=== PATIENT | female | born 1950 | race Caucasian/White ===

== ENCOUNTER 2018-05-07 22:51 | Emergency (ER) ==
[2018-05-07 23:07] VITALS: BP 121/63
--- NOTE | 2018-05-07 23:28 | ER Document Report ---
ED Medical Screen (RME) - General Chief Complaint: Diarrhea Stated Complaint: DIARRHEA Time Seen by Provider: 05/07/18 23:26 Primary Care Provider: LACI BARRERA MD [Primary Care Provider] - Follow up as needed Mode of Arrival: Ambulatory Information source: Patient Notes: Patient is a 67-year-old female who presents to the emergency department with diarrhea times 1 week. Patient reports taking Imodium over the last 3 days without relief. Patient denies any blood in the diarrhea but states there is blood when she wipes. Reports generalized abdominal pain that comes in waves. Denies any vomiting or fever. Patient does report dizziness. Patient denies any history of similar symptoms. TRAVEL OUTSIDE OF THE [place] IN LAST 30 DAYS: No Past Medical History - Social History Chew tobacco use (# tins/day): No Frequency of alcohol use: None Drug Abuse: None Renal/ Medical History: Denies: Hx Peritoneal Dialysis Physical Exam - Vital signs Vitals: Temp Pulse Resp BP Pulse Ox 97.3 F 104 H 17 121/63 98 05/07/18 23:04 05/07/18 23:04 05/07/18 23:04 05/07/18 23:04 05/07/18 23:04 Course - Vital Signs Vital signs: Temp Pulse Resp BP Pulse Ox 97.3 F 104 H 17 121/63 98 05/07/18 23:04 05/07/18 23:04 05/07/18 23:04 05/07/18 23:04 05/07/18 23:04 Doctor's Discharge - Discharge Referrals: LACI BARRERA MD [Primary Care Provider] - Follow up as needed
== END 2018-05-08 00:20 | disposition left against medical advice (07) ==
LOC: ER 22:51
DX: R19.7 Diarrhea, unspecified (principal); R10.84 Generalized abdominal pain; R42 Dizziness and giddiness; Z53.20 Procedure and treatment not carried out because of patient's decision for unspecified reasons
CPT/HCPCS: 99281

== ENCOUNTER 2018-05-10 20:44 | Emergency (ER) | payer MEDICARE, MEDICAID ==
[2018-05-10 21:25] LABS: ABSOLUTE EOSINOPHILS # (AUTO) 0.1 10^3/uL (0.0-0.6); ABSOLUTE LYMPHOCYTES (AUTO) 1.1 10^3/uL (0.5-4.7); ABSOLUTE MONOCYTES (AUTO) 1.1 10^3/uL (0.1-1.4); ABSOLUTE NEUT (AUTO) 6.9 10^3/uL (1.7-8.2); BASOPHILS % (AUTO) 0.5 % (0-2); EOSINOPHILS % (AUTO) 0.7 % (0-6); HEMATOCRIT 29.3 % (36.0-47.0); HEMOGLOBIN 9.5 g/dL (12.0-15.5); LYMPHOCYTES % (AUTO) 12.1 % (13-45); MEAN CORPUSCULAR HEMOGLOBIN 23.9 pg (27.0-33.4); MEAN CORPUSCULAR HGB CONC 32.4 g/dL (32.0-36.0); MEAN CORPUSCULAR VOLUME 74 fl (80-97); MONOCYTES % (AUTO) 11.5 % (3-13); PLATELET COUNT 349 10^3/uL (150-450); RED BLOOD COUNT 3.97 10^6/uL (3.72-5.28); RED CELL DISTRIBUTION WIDTH 15.3 % (11.5-14.0); SEGMENTED NEUTROPHILS % (AUTO) 75.2 % (42-78); TOTAL CELLS COUNTED % (AUTO) 100 %; WHITE BLOOD COUNT 9.1 10^3/uL (4.0-10.5)
[2018-05-10 21:33] LABS: ALANINE AMINOTRANSFERASE 28 U/L (9-52); ALBUMIN 2.7 g/dL (3.5-5.0); ALKALINE PHOSPHATASE 106 U/L (38-126); ANION GAP 9 (5-19); ASPARTATE AMINO TRANSFERASE 22 U/L (14-36); BILIRUBIN,DIRECT 0.2 mg/dL (0.0-0.4); BILIRUBIN,TOTAL 0.3 mg/dL (0.2-1.3); BLOOD UREA NITROGEN 13 mg/dL (7-20); CALCIUM 8.7 mg/dL (8.4-10.2); CARBON DIOXIDE 26 mmol/L (22-30); CHLORIDE 105 mmol/L (98-107); GLUCOSE 121 mg/dL (75-110); LIPASE 45.9 U/L (23-300); SODIUM 140.4 mmol/L (137-145); TOTAL PROTEIN 5.4 g/dL (6.3-8.2)
[2018-05-10] MEDS ORDERED: POTASSIUM CHLORIDE 10 MEQ CAPSULE.ER PO ONE (22:04)
[2018-05-10] MEDS ORDERED: MAGNESIUM SULFATE/D5W 1 GM/100 ML RTUPB IV ONE (22:04)
[2018-05-11] MEDS ORDERED: NORMAL SALINE 1000 ML 1,000 ML IV ONE (01:15)
[2018-05-11] MEDS ORDERED: POTASSIUM CHLORIDE 10 MEQ CAPSULE.ER PO ONE (02:26)
[2018-05-11 05:11] VITALS: BP 115/47
--- NOTE | 2018-05-11 05:14 | ER Document Report ---
ED GI/ - General Chief Complaint: Diarrhea Stated Complaint: DIZZINESS/DIARRHEA Time Seen by Provider: 05/10/18 22:04 Primary Care Provider: SIOMARA GAMEZ MD [ACTIVE STAFF] - Follow up in 3-5 days QING OH PA [Primary Care Provider] - Follow up as needed Notes: Patient is a 67-year-old female who presents with a week and a half of diarrhea. She says she has watery stools. No blood in her stool. No fevers. Some body aches. Some abdominal cramping. She did see her doctor and it sounds as if she was placed on Cipro and Flagyl. She said that 1 of the antibiotics is making her vomit and therefore she is just taken the other one right now. She denies recent seeing a GI doctor. No other recent or new medications. No recent colonoscopy. No other complaints at this time. No travel outside the country. No antibiotic use in the months leading up to the patient's diarrhea. TRAVEL OUTSIDE OF THE [place] IN LAST 30 DAYS: No - Related Data Allergies/Adverse Reactions: Penicillins Allergy (Verified 05/10/18 21:44) Past Medical History - Social History Smoking Status: Current Every Day Smoker Chew tobacco use (# tins/day): No Frequency of alcohol use: None Drug Abuse: None Family History: Reviewed & Not Pertinent Patient has suicidal ideation: No Patient has homicidal ideation: No Renal/ Medical History: Denies: Hx Peritoneal Dialysis Review of Systems - Review of Systems Notes: My Normal Review Basic REVIEW OF SYSTEMS: CONSTITUTIONAL : Denies fever, chills, or sweats. Denies recent illness. EENT: Denies eye, ear, throat, or mouth pain or symptoms. Denies nasal or sinus congestion. CARDIOVASCULAR: Denies chest pain. RESPIRATORY: Denies cough, cold, or chest congestion. Denies shortness of breath, difficulty breathing, or wheezing. GASTROINTESTINAL: Crampy abdominal pain. Diarrhea. GENITOURINARY: Denies difficulty urinating, painful urination, burning, frequency, or blood in urine. MUSCULOSKELETAL: Denies neck or back pain or joint pain or swelling. SKIN: Denies rash or skin lesions. NEUROLOGICAL: Denies altered mental status or loss of consciousness. Denies headache. Denies weakness or paralysis or loss of use of either side. Denies problems with gait or speech. Denies sensory or motor loss. ALL OTHER SYSTEMS REVIEWED AND NEGATIVE. Physical Exam - Vital signs Vitals: Resp 16 05/10/18 21:00 - Notes Notes: General Appearance: Well nourished, alert, cooperative, no acute distress, no obvious discomfort. Vitals: reviewed, See vital signs table. Head: no swelling or tenderness to the head Eyes: PERRL, EOMI, Conjuctiva clear Mouth: No decreasd moisture Throat: No tonsillar inflammation, No airway obstruction, No lymphadenopathy Neck: Supple, no neck tenderness, No thyromegaly Lungs: No wheezing, No rales, No rhonci, No accessory muscle use, good air exchange bilaterally. Heart: Normal rate, Regular rythm, No murmur, no rub Abdomen: Normal BS, soft, No rigidity, mild generalized abdominal soreness to palpation, No guarding, no rebound, no abdominal masses, no organomegaly Extremities: good pulses in all extremities, no edema. Skin: warm, dry, appropriate color, no rash Neuro: speech clear, oriented x 3, normal affect, responds appropriately to questions. Course - Re-evaluation Re-evalutation: 05/11/18 05:33 Patient was hyponatremic. I therefore gave her potassium as well as magnesium. Also will prescribe her potassium. The exact cause of her diarrhea is not 100% clear and therefore I did send her stool for culture. I informed her that if her culture grows out anything we will call her back. I informed her if she does not hear from us in 2 days and she should call the culture Callback number. She is currently well on what I suspect is Cipro. I encouraged her to continue taking Cipro and follow-up closely with her primary care doctor. I informed her if her diarrhea does not continue to improve then she should follow-up with GI physician for further evaluation. Patient to return to the ER if she has fevers, bloody stools, significant abdominal pain, vomiting, or she feels that she is worsening. Patient agrees with plan and will be discharged home. Dictation of this chart was performed using voice recognition software; therefore, there may be some unintended grammatical errors. - Vital Signs Vital signs: Temp Pulse Resp BP Pulse Ox 98.3 F 16 115/47 L 97 05/11/18 01:43 05/11/18 05:01 05/11/18 05:01 05/11/18 05:01 - Laboratory Result Diagrams: 05/10/18 20:51 05/10/18 20:51 Laboratory results interpreted by me: 05/10/18 05/10/18 20:51 20:51 Hgb 9.5 L Hct 29.3 L MCV 74 L MCH 23.9 L RDW 15.3 H Lymphocytes % 12.1 L Potassium 3.0 L* Glucose 121 H Total Protein 5.4 L Albumin 2.7 L Discharge - Discharge Clinical Impression: Diarrhea Condition: Good Disposition: HOME, SELF-CARE Additional Instructions: Please continue to take the antibiotic prescribed by your doctor. Please take the Potassium I have prescribed you. I have also prescribed you a medicine called Bentyl which helps with pain or cramping in the abdomen. I have referred you to a GI doctor, Dr. Gamez, for further evaluation in regards to your diarrhea. Please return to the ER immediately if you develop fevers, bloody stools, vomiting, worsening abdominal pain, or feel that you are worsening in any way. We have sent her stool for culture. If it grows out anything we will call you back. If you do not hear from us in 2 days and please call the culture callback number at [phone]. Prescriptions: Dicyclomine HCl [Bentyl 10 mg Capsule] 1 cap PO TID #15 cap RX: Potassium Chloride 10 meq PO DAILY #7 capsule.er Referrals: QING OH PA [Primary Care Provider] - Follow up as needed SIOMARA GAMEZ MD [ACTIVE STAFF] - Follow up in 3-5 days
== END 2018-05-11 05:35 | disposition home or self-care (01) ==
LOC: ER 20:44
DX: R19.7 Diarrhea, unspecified (principal); R42 Dizziness and giddiness; M79.10 Myalgia, unspecified site; Z88.0 Allergy status to penicillin
CPT/HCPCS: 99284; 96360; 96361; 36415; 87045; 87205; 83690; 85025; 80053; J3475; J7030; A9270 ×2

== ENCOUNTER 2018-05-14 12:31 | Inpatient (IN) | payer MEDICARE, MEDICAID ==
[2018-05-14] MEDS ORDERED: NORMAL SALINE 1000 ML 1,000 ML IV ONE (13:22)
--- NOTE | 2018-05-14 13:24 | ER Document Report ---
ED Medical Screen (RME) - General Chief Complaint: Black/Tarry Stools Stated Complaint: DIARRHEA Time Seen by Provider: 05/14/18 13:22 Primary Care Provider: QING OH PA [Primary Care Provider] - Follow up as needed Mode of Arrival: Ambulatory Information source: Patient, Relative TRAVEL OUTSIDE OF THE [place] IN LAST 30 DAYS: No - HPI Patient complains to provider of: diarrhea Onset: Other - pt with diarrhea for the past 2 weeks --now black in color. Dr. Gamez has been following pt. and has requested admission. - Related Data Allergies/Adverse Reactions: Penicillins Allergy (Verified 05/10/18 21:44) Past Medical History - Social History Chew tobacco use (# tins/day): No Frequency of alcohol use: None Drug Abuse: None Renal/ Medical History: Denies: Hx Peritoneal Dialysis Physical Exam - Vital signs Vitals: Temp Pulse Resp BP Pulse Ox 98.2 F 118 H 20 105/52 L 100 05/14/18 12:47 05/14/18 12:47 05/14/18 12:47 05/14/18 12:47 05/14/18 12:47 Course - Vital Signs Vital signs: Temp Pulse Resp BP Pulse Ox 98.2 F 118 H 16 105/52 L 100 05/14/18 12:47 05/14/18 12:47 05/14/18 13:15 05/14/18 12:47 05/14/18 12:47 Doctor's Discharge - Discharge Referrals: QING OH PA [Primary Care Provider] - Follow up as needed
[2018-05-14 14:55] LABS: ABSOLUTE BASOPHILS # (AUTO) 0.1 10^3/uL (0.0-0.2); ABSOLUTE LYMPHOCYTES (AUTO) 1.3 10^3/uL (0.5-4.7); ABSOLUTE NEUT (AUTO) 8.9 10^3/uL (1.7-8.2); BASOPHILS % (AUTO) 0.8 % (0-2); EOSINOPHILS % (AUTO) 0.4 % (0-6); HEMATOCRIT 29.8 % (36.0-47.0); HEMOGLOBIN 9.4 g/dL (12.0-15.5); LYMPHOCYTES % (AUTO) 11.5 % (13-45); MEAN CORPUSCULAR HEMOGLOBIN 23.5 pg (27.0-33.4); MEAN CORPUSCULAR HGB CONC 31.6 g/dL (32.0-36.0); MEAN CORPUSCULAR VOLUME 74 fl (80-97); MONOCYTES % (AUTO) 8.6 % (3-13); PLATELET COUNT 433 10^3/uL (150-450); RED BLOOD COUNT 4.01 10^6/uL (3.72-5.28); RED CELL DISTRIBUTION WIDTH 16.2 % (11.5-14.0); SEGMENTED NEUTROPHILS % (AUTO) 78.7 % (42-78); TOTAL CELLS COUNTED % (AUTO) 100 %; WHITE BLOOD COUNT 11.4 10^3/uL (4.0-10.5)
[2018-05-14 15:12] LABS: ALANINE AMINOTRANSFERASE 23 U/L (9-52); ALKALINE PHOSPHATASE 87 U/L (38-126); ANION GAP 5 (5-19); ASPARTATE AMINO TRANSFERASE 27 U/L (14-36); BILIRUBIN,DIRECT 0.4 mg/dL (0.0-0.4); BILIRUBIN,TOTAL 0.5 mg/dL (0.2-1.3); BLOOD UREA NITROGEN 13 mg/dL (7-20); CALCIUM 8.9 mg/dL (8.4-10.2); CARBON DIOXIDE 30 mmol/L (22-30); CHLORIDE 102 mmol/L (98-107); GLUCOSE 120 mg/dL (75-110); POTASSIUM 4.3 mmol/L (3.6-5.0); SODIUM 137.4 mmol/L (137-145); TOTAL PROTEIN 5.8 g/dL (6.3-8.2)
[2018-05-14] MEDS ORDERED: DICYCLOMINE HCL 20 MG TABLET PO ONE (16:05)
[2018-05-14] MEDS ORDERED: ONDANSETRON HCL INJ/PF 4 MG/2 ML SDV IV ONE (16:05)
--- NOTE | 2018-05-14 16:07 | ER Document Report ---
ED GI/ - General Chief Complaint: Black/Tarry Stools Stated Complaint: DIARRHEA Time Seen by Provider: 05/14/18 13:22 Mode of Arrival: Ambulatory Information source: Patient Notes: Patient presents complaining of diarrhea for the past 2 weeks. Patient states stool is black in color. Patient has had some abdominal cramping and nausea. Patient just finished a round of Cipro today but was unable to tolerate oral Flagyl as it caused her nausea. Patient does complain of nausea today. Patient was sent here from her intertype operator office, Dr Gamez. Patient's intertype operator is requesting that patient be admitted, and will plan to evaluate patient while she is here in the hospital. TRAVEL OUTSIDE OF THE [place] IN LAST 30 DAYS: No - HPI Patient complains to provider of: Abdominal pain, Diarrhea. No: Vomiting Onset: Other - 2 weeks Timing/Duration: Persistent Quality of pain: Cramping Pain Level: 3 Location: Pelvis Vaginal bleeding (Compared to normal period): None Associated symptoms: Diarrhea, Nausea. denies: Fever, Loss of appetite, Urinary hesitancy, Urinary frequency, Vomiting Exacerbated by: Denies Relieved by: Denies Similar symptoms previously: No Recently seen / treated by doctor: Yes - Related Data Allergies/Adverse Reactions: Penicillins Allergy (Verified 05/14/18 14:46) Past Medical History - General Information source: Patient, Relative - Social History Smoking Status: Current Every Day Smoker Chew tobacco use (# tins/day): No Frequency of alcohol use: None Drug Abuse: None Lives with: Family Family History: Reviewed & Not Pertinent Patient has suicidal ideation: No Patient has homicidal ideation: No Renal/ Medical History: Reports: Other - Overactive bladder. Denies: Hx Peritoneal Dialysis Past Surgical History: Reports: Hx Gynecologic Surgery, Hx Thyroid Surgery, Hx Tubal Ligation Review of Systems - Review of Systems Constitutional: Recent illness - Diarrhea times 2 weeks. denies: Fever EENT: No symptoms reported Cardiovascular: No symptoms reported. denies: Chest pain Respiratory: No symptoms reported. denies: Cough, Short of breath Gastrointestinal: Abdominal pain, Diarrhea, Nausea, Black stools. denies: Vomiting Genitourinary: Frequency, Urgency. denies: Dysuria Female Genitourinary: No symptoms reported Musculoskeletal: No symptoms reported Skin: No symptoms reported Hematologic/Lymphatic: No symptoms reported Neurological/Psychological: No symptoms reported. denies: Headaches Physical Exam - Vital signs Vitals: Temp Pulse Resp BP Pulse Ox 98.2 F 118 H 20 105/52 L 100 05/14/18 12:47 05/14/18 12:47 05/14/18 12:47 05/14/18 12:47 05/14/18 12:47 - General General appearance: Appears well, Alert In distress: None - HEENT Head: Normocephalic Eyes: Normal Conjunctiva: Normal Nasal: Normal Mucous membranes: Dry Pharynx: Normal Neck: Normal, Supple. No: Lymphadenopathy - Respiratory Respiratory status: No respiratory distress Chest status: Nontender Breath sounds: Normal. No: Rales, Rhonchi, Stridor Chest palpation: Normal - Cardiovascular Rhythm: Regular, Tachycardia Heart sounds: S1 appreciated, S2 appreciated - Abdominal Inspection: Normal Distension: No distension Bowel sounds: Normal Tenderness: Tender - Generalized lower abdominal tenderness. No: Guarding Organomegaly: No organomegaly - Back Back: Normal, Nontender. No: CVA tenderness - Extremities General upper extremity: Normal inspection, Nontender, Normal ROM General lower extremity: Normal inspection, Nontender, Normal ROM - Neurological Neuro grossly intact: Yes Cognition: Normal Cuthbert Coma Scale Eye Opening: Spontaneous Rhea Coma Scale Verbal: Oriented Cuthbert Coma Scale Motor: Obeys Commands Cuthbert Coma Scale Total: 15 - Psychological Associated symptoms: Normal affect, Normal mood - Skin Skin Temperature: Warm Skin Moisture: Dry Skin Color: Normal Course - Re-evaluation Re-evalutation: 05/14/18 16:[address] Parker regarding patient presentation to the ER and Dr. joshua echevarria request that patient be admitted and that he would follow her during her inpatient stay. Dr. Parker did speak with Dr. Gamez and is agreeable to accept patient as an admission to medical floor. Recommends obtaining CT abdomen and pelvis with IV and oral contrast as well as starting IV Cipro and IV Flagyl. Dr. Parker advised that patient reports that she recently finished a course of C ipro but was unable to tolerate Flagyl due to emesis. Dr. Parker states to give a single dose IV at this time. 05/14/18 19:55 - Vital Signs Vital signs: Temp Pulse Resp BP Pulse Ox 98.7 F 118 H 13 111/44 L 100 05/14/18 15:41 05/14/18 12:47 05/14/18 19:02 05/14/18 19:02 05/14/18 19:02 - Laboratory Result Diagrams: 05/14/18 14:40 05/14/18 14:40 Laboratory results interpreted by me: 05/14/18 05/14/18 05/14/18 14:40 14:40 15:59 WBC 11.4 H Hgb 9.4 L Hct 29.8 L MCV 74 L MCH 23.5 L MCHC 31.6 L RDW 16.2 H Seg Neutrophils % 78.7 H Lymphocytes % 11.5 L Absolute Neutrophils 8.9 H Glucose 120 H Total Protein 5.8 L Albumin 3.0 L Urine Protein 100 H Urine Glucose (UA) 50 H Urine Ketones 20 H Urine Bilirubin MODERATE H Urine Urobilinogen 4.0 H Ur Leukocyte Esterase TRACE H Discharge - Discharge Clinical Impression: Diarrhea Qualifiers: Diarrhea type: unspecified type Qualified Code(s): R19.7 - Diarrhea, unspecified Abdominal pain Qualifiers: Abdominal location: generalized Qualified Code(s): R10.84 - Generalized abdominal pain Condition: Stable Disposition: ADMITTED INPATIENT Admitting Provider: Parker Unit Admitted: Medical Floor
[2018-05-14] MEDS ORDERED: METRONIDAZOLE 500 MG/NS RTU 500 MG/100 ML RTUPB IV ONE (16:17)
[2018-05-14] MEDS ORDERED: CIPROFLOXACIN 400 MG/D5W RTU 400 MG/200 ML RTUPB IV ONE (16:17)
[2018-05-14 16:28] LABS: APPEARANCE,URINE CLOUDY; BILIRUBIN,URINE MODERATE (NEGATIVE); GLUCOSE, URINE 50 mg/dL (NEGATIVE); KETONES,URINE 20 mg/dL (NEGATIVE); LEUKOCYTE ESTERASE,URINE TRACE (NEGATIVE); NITRITE,URINE NEGATIVE (NEGATIVE); PROTEIN,URINE 100 mg/dL (NEGATIVE)
[2018-05-14 16:30] LABS: COLOR,URINE YELLOW
[2018-05-14] MEDS ORDERED: ONDANSETRON HCL INJ/PF 4 MG/2 ML SDV IV PRN (16:33)
--- NOTE | 2018-05-14 17:16 | PDOC H&P ---
History of Present Illness Admission Date/PCP: 05/14/18 16:40 MAGGI MENENDEZ Patient complains of: Diarrhea History of Present Illness: EDIL BENNETT is a 67 year old female This is a 67-year-old female who presents today for complaint of diarrhea for the last 2-1/2 weeks she has a history of the hyperlipidemia diabetes mellitus overactive bladder and osteoarthritis and chronic pain Patient is in our clinic as a new patients relatively moved from the [place] She complained of her diarrhea multiple times a day with urgency and some incontinence. She has had to start wearing pads to control the leakage. She had abdominal pain that is itchy all over but worse in upper abdomen. She had some associated nausea no vomiting. She had a decreased appetite because everything I eat to make me go She described the stool or black and liquid he She had a last colonoscopy in [place] last year we do not have any record she report it was normal She has never had a diarrhea like this in the past She is status post appendectomy in the past She has been taking Imodium and this did not help. She was initially seen in the ER in the 05/07 and a record so she was not giving any and no labs was done She then went to the urgent care and they report being given Cipro and Flagyl which was still not able to tolerate due to nausea She then went back to the ER in 05/10 and the labs shows that hemoglobin was 9.5 Previously in our clinic February the hemoglobin was 13.5 She denied taking any iron tablet no history of any GI bleed or anemia Patient's potassium was 3.0 and was given potassium tablet she was given Bentyl in the emergency department and referred to the GI Stool culture was all negative in the ER she did not recently travel no new [facility] Patients at this point referred to the Dr. Gamez in his office today to further evaluate with ongoing problems and Dr. Gamez sent to the patient's because of the significant diarrhea issue to the emergency department and as per discussed with him he decided to admit in the hospital and he will follow and further evaluate Order the CT scan of the abdomen and pelvis without any colitis We will order the stool for the C. difficile and also continues the Flagyl and Cipro IV As per discussed with Dr. Gamez and suggest to continues to Imodium as needed may be consider cholestyramine and will continues to IV fluid Past Medical History Pulmonary Medical History: Reports: Chronic Obstructive Pulmonary Disease (COPD) Endocrine Medical History: Reports: Diabetes Mellitus Type 2 Musculoskeltal Medical History: Reports: Arthritis Past Surgical History Past Surgical History: Reports: Appendectomy, Tonsillectomy, Tubal Ligation Social History Information Source: Patient Smoking Status: Current Every Day Smoker Frequency of Alcohol Use: Occasional Hx Recreational Drug Use: No Hx Prescription Drug Abuse: No Family History Family History: Reviewed & Not Pertinent Parental Family History Reviewed: Yes Children Family History Reviewed: Yes Sibling(s) Family History Reviewed.: Yes Medication/Allergy Home Medications: Dicyclomine HCl [Bentyl 10 mg Capsule] 1 cap PO TID #15 cap 05/11/18 Potassium Chloride 10 meq PO DAILY #7 capsule.er 05/11/18 Allergies/Adverse Reactions: Penicillins Allergy (Verified 05/14/18 14:46) Review of Systems Constitutional: ABSENT: chills, fever(s), headache(s), weight gain, weight loss Eyes: ABSENT: visual disturbances Ears: ABSENT: hearing changes Cardiovascular: ABSENT: chest pain, dyspnea on exertion, edema, orthropnea, palpitations Respiratory: ABSENT: cough, hemoptysis Gastrointestinal: PRESENT: abdominal pain, diarrhea, melena, nausea. ABSENT: constipation, hematemesis, hematochezia, vomiting Genitourinary: ABSENT: dysuria, hematuria Musculoskeletal: ABSENT: joint swelling Integumentary: ABSENT: rash, wounds Neurological: ABSENT: abnormal gait, abnormal speech, confusion, dizziness, focal weakness, syncope Psychiatric: ABSENT: anxiety, depression, homidical ideation, suicidal ideation Endocrine: ABSENT: cold intolerance, heat intolerance, menstrual abnormalities, polydipsia, polyuria Hematologic/Lymphatic: ABSENT: easy bleeding, easy bruising, lymphadenopathy Physical Exam Vital Signs: Temp Pulse Resp BP Pulse Ox 98.7 F 118 H 18 113/72 100 05/14/18 15:41 05/14/18 12:47 05/14/18 16:01 05/14/18 16:01 05/14/18 16:01 Intake & Output 05/13/18 05/14/18 05/15/18 06:59 06:59 06:59 Weight 74.208 kg General appearance: PRESENT: no acute distress, well-developed, well-nourished Head exam: PRESENT: atraumatic, normocephalic Eye exam: PRESENT: conjunctiva pink, EOMI, PERRLA. ABSENT: scleral icterus Ear exam: PRESENT: normal external ear exam Mouth exam: PRESENT: moist, tongue midline Neck exam: PRESENT: full ROM. ABSENT: carotid bruit, JVD, lymphadenopathy, thyromegaly Respiratory exam: PRESENT: clear to auscultation omar Cardiovascular exam: PRESENT: RRR. ABSENT: diastolic murmur, rubs, systolic murmur Vascular exam: PRESENT: normal capillary refill GI/Abdominal exam: PRESENT: normal bowel sounds, soft, tenderness. ABSENT: distended, guarding, mass, organolmegaly, rebound Rectal exam: PRESENT: deferred, black stool Extremities exam: PRESENT: pedal edema Musculoskeletal exam: PRESENT: ambulatory Neurological exam: PRESENT: alert, awake, oriented to person, oriented to place, oriented to time, oriented to situation, CN II-XII grossly intact. ABSENT: motor sensory deficit Psychiatric exam: PRESENT: appropriate affect, normal mood. ABSENT: homicidal ideation, suicidal ideation Skin exam: PRESENT: dry, intact, warm. ABSENT: cyanosis, rash Results Laboratory Results: 05/14/18 14:40 05/14/18 14:40 05/14/18 05/14/18 05/14/18 14:40 14:40 14:40 WBC 11.4 H RBC 4.01 Hgb 9.4 L Hct 29.8 L MCV 74 L MCH 23.5 L MCHC 31.6 L RDW 16.2 H Plt Count 433 Seg Neutrophils % 78.7 H Lymphocytes % 11.5 L Monocytes % 8.6 Eosinophils % 0.4 Basophils % 0.8 Absolute Neutrophils 8.9 H Absolute Lymphocytes 1.3 Absolute Monocytes 1.0 Absolute Eosinophils 0.0 Absolute Basophils 0.1 Sodium 137.4 Potassium 4.3 Chloride 102 Carbon Dioxide 30 Anion Gap 5 BUN 13 Creatinine 0.81 Est GFR ( Amer) > 60 Est GFR (Non-Af Amer) > 60 Glucose 120 H Calcium 8.9 Total Bilirubin 0.5 AST 27 ALT 23 Alkaline Phosphatase 87 Total Protein 5.8 L Albumin 3.0 L Urine Color Urine Appearance Urine pH Ur Specific [employer] Urine Protein Urine Glucose (UA) Urine Ketones Urine Blood Urine Nitrite Ur Leukocyte Esterase Urine WBC (Auto) Urine RBC (Auto) Stool Occult Blood Blood Type A POSITIVE Antibody Screen NEGATIVE 03/29/19 03/29/19 15:59 15:59 WBC RBC Hgb Hct MCV MCH MCHC RDW Plt Count Seg Neutrophils % Lymphocytes % Monocytes % Eosinophils % Basophils % Absolute Neutrophils Absolute Lymphocytes Absolute Monocytes Absolute Eosinophils Absolute Basophils Sodium Potassium Chloride Carbon Dioxide Anion Gap BUN Creatinine Est GFR ( Amer) Est GFR (Non-Af Amer) Glucose Calcium Total Bilirubin AST ALT Alkaline Phosphatase Total Protein Albumin Urine Color YELLOW Urine Appearance CLOUDY Urine pH 5.0 Ur Specific [employer] 1.030 Urine Protein 100 H Urine Glucose (UA) 50 H Urine Ketones 20 H Urine Blood NEGATIVE Urine Nitrite NEGATIVE Ur Leukocyte Esterase TRACE H Urine WBC (Auto) 5 Urine RBC (Auto) 6 Stool Occult Blood POSITIVE Blood Type Antibody Screen Assessment & Plan - Diagnosis (1) Stool guaiac positive Is this a current diagnosis for this admission?: Yes Plan: Patient hemoglobin is stable since last Thursday check blood draw from the February Follow with the Dr. Gamez keep a liquid diet as per discussed with Dr. Gamez (2) Abdominal pain Qualifiers: Abdominal location: generalized Qualified Code(s): R10.84 - Generalized abdominal pain Is this a current diagnosis for this admission?: Yes Plan: Will get the CT scan of the abdomen and pelvis with IV and p.o. contrast to rule out any colitis and other etiology (3) Diarrhea Qualifiers: Diarrhea type: unspecified type Qualified Code(s): R19.7 - Diarrhea, unspecified Is this a current diagnosis for this admission?: Yes Plan: Will check the stool culture and stool for C. difficile Continues to IV fluid Continues cover with the Cipro and Flagyl Imodium as needed as per the discussed with the Dr. Gamez (4) Arthritis Is this a current diagnosis for this admission?: Yes - Time Time Spent: 30 to 50 Minutes Medications reviewed and adjusted accordingly: Yes Anticipated discharge: Home Within: Other - Inpatient Certification Based on my medical assessment, after consideration of the patient's comorbidities, presenting symptoms, or acuity I expect that the services needed warrant INPATIENT care.: Yes I certify that my determination is in accordance with my understanding of Medicare's requirements for reasonable and necessary INPATIENT services [42 CFR 412.3e].: Yes Medical Necessity: Significant Comorbidiites Make Outpatient Treatment Too Risky, Need For IV Fluids, Need for IV Antibiotics 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
[2018-05-14] MEDS: LOPERAMIDE HCL 2 MG CAPSULE PO PRN ×2 (18:56→21:51)
[2018-05-14] MEDS: NORMAL SALINE 1000 ML 1,000 ML IV PRN (18:58)
[2018-05-14] MEDS: METRONIDAZOLE 500 MG/NS RTU 500 MG/100 ML RTUPB IV SCH (19:02)
--- NOTE | 2018-05-14 20:59 | EKG REPORT ---
SEVERITY:- NORMAL ECG - SINUS RHYTHM : Confirmed by: Yesy Garg MD 14-May-2018 20:59:05
--- NOTE | 2018-05-14 21:00 | RADIOLOGY REPORT (SQ) ---
EXAM DESCRIPTION: CT ABDOMEN PELVIS WITH IV CONTRAST COMPLETED DATE/TME: 05/14/2018 00:00 CLINICAL HISTORY: 67 years, Female, abd pain, diarrhea COMPARISON: None. TECHNIQUE: Axial images of the abdomen and pelvis were performed utilizing intravenous contrast, with sagittal and coronal reformatted images. Images stored on PACS. All CT scanners at this facility use dose modulation, iterative reconstruction, and/or weight based dosing when appropriate to reduce radiation dose to as low as reasonably achievable (ALARA). [facility]: Dose Right [facility]: CareDose [facility]: Dose Right [facility]: Teradose 4D [facility]: [employer] LIMITATIONS: None. FINDINGS: There is a large lobular soft tissue mass involving the hepatic flexure of the colon, measuring approximately 10 x 9 x 8 cm in overall size, compatible with malignant neoplasm. There are mildly prominent lymph nodes and streaky changes in the surrounding fat, suspicious for extraserosal spread of tumor. No evidence of colon obstruction. There are small gallstones. There is a small right-sided calcified uterine fibroid. No evidence of appendicitis. There is no significant radiographic abnormality of the liver, spleen, pancreas, adrenal glands or kidneys. There are atherosclerotic changes involving the abdominal aorta, but there is no aneurysm. No free air or free fluid. IMPRESSION: Malignant neoplasm involving the hepatic flexure of the colon, as described. Other findings as described. TECHNICAL DOCUMENTATION: Quality ID # 436: Final reports with documentation of one or more dose reduction techniques (e.g., Automated exposure control, adjustment of the mA and/or kV according to patient size, use of iterative reconstruction technique) copyright 2011 [employer]- All Rights Reserved
[2018-05-14] MEDS: IPRATROPIUM/ALBUTEROL 0.5-2.5 MG/3 ML AMPUL NEB SCH (21:22)
[2018-05-14] MEDS: FAMOTIDINE 20 MG TABLET PO SCH (21:50)
[2018-05-15] MEDS: CIPROFLOXACIN 400 MG/D5W RTU 400 MG/200 ML RTUPB IV SCH ×3 (00:06→22:12)
[2018-05-15] MEDS: METRONIDAZOLE 500 MG/NS RTU 500 MG/100 ML RTUPB IV SCH ×4 (00:08→18:28)
[2018-05-15] MEDS: LOPERAMIDE HCL 2 MG CAPSULE PO PRN ×3 (02:15→22:10)
[2018-05-15 06:28] LABS: ABSOLUTE EOSINOPHILS # (AUTO) 0.1 10^3/uL (0.0-0.6); ABSOLUTE LYMPHOCYTES (AUTO) 1.2 10^3/uL (0.5-4.7); ABSOLUTE MONOCYTES (AUTO) 0.7 10^3/uL (0.1-1.4); ABSOLUTE NEUT (AUTO) 4.5 10^3/uL (1.7-8.2); BASOPHILS % (AUTO) 0.4 % (0-2); EOSINOPHILS % (AUTO) 1.6 % (0-6); HEMATOCRIT 23.4 % (36.0-47.0); LYMPHOCYTES % (AUTO) 18.7 % (13-45); MEAN CORPUSCULAR HEMOGLOBIN 23.8 pg (27.0-33.4); MEAN CORPUSCULAR HGB CONC 32.3 g/dL (32.0-36.0); MEAN CORPUSCULAR VOLUME 74 fl (80-97); PLATELET COUNT 296 10^3/uL (150-450); RED BLOOD COUNT 3.17 10^6/uL (3.72-5.28); RED CELL DISTRIBUTION WIDTH 16.2 % (11.5-14.0); SEGMENTED NEUTROPHILS % (AUTO) 68.3 % (42-78); TOTAL CELLS COUNTED % (AUTO) 100 %; WHITE BLOOD COUNT 6.6 10^3/uL (4.0-10.5)
[2018-05-15 06:36] LABS: HEMOGLOBIN 7.5 g/dL (12.0-15.5)
[2018-05-15 06:44] LABS: ALANINE AMINOTRANSFERASE 26 U/L (9-52); ALBUMIN 2.2 g/dL (3.5-5.0); ALKALINE PHOSPHATASE 69 U/L (38-126); ANION GAP 5 (5-19); ASPARTATE AMINO TRANSFERASE 21 U/L (14-36); BILIRUBIN,DIRECT 0.2 mg/dL (0.0-0.4); BILIRUBIN,TOTAL 0.2 mg/dL (0.2-1.3); BLOOD UREA NITROGEN 7 mg/dL (7-20); CALCIUM 8.1 mg/dL (8.4-10.2); CARBON DIOXIDE 28 mmol/L (22-30); CHLORIDE 106 mmol/L (98-107); GLUCOSE 96 mg/dL (75-110); POTASSIUM 3.6 mmol/L (3.6-5.0); SODIUM 139.2 mmol/L (137-145); TOTAL PROTEIN 4.6 g/dL (6.3-8.2)
[2018-05-15] MEDS: ACETAMINOPHEN 325 MG TABLET PO PRN (08:40)
[2018-05-15] MEDS: IPRATROPIUM/ALBUTEROL 0.5-2.5 MG/3 ML AMPUL NEB SCH ×3 (09:20→19:53)
--- NOTE | 2018-05-15 10:11 | PDOC PROGRESS REPORT ---
Subjective Progress Note for:: 05/15/18 Subjective:: Patient did admitted to completion of colonoscopy in [place] before her relocation to [place], [place] and it was reported to as normal. There has been diarrhea, nausea and weight loss in recent time. There is abdominal pain in the upper region across the abdomen. She denied any fever or chills. Remain on clear liquid diet. Reason For Visit: DIARRHEA,GI BLEED Physical Exam Vital Signs: Temp Pulse Resp BP Pulse Ox 98.4 F 78 18 96/33 L 90 L 05/15/18 09:30 05/15/18 09:30 05/15/18 09:30 05/15/18 09:30 05/15/18 09:30 Intake & Output 05/14/18 05/15/18 05/16/18 06:59 06:59 06:59 Intake Total 1780 0 Balance 1780 0 Weight 74.1 kg General appearance: PRESENT: no acute distress, well-developed, well-nourished Head exam: PRESENT: atraumatic, normocephalic Eye exam: PRESENT: conjunctiva pink, EOMI, PERRLA. ABSENT: scleral icterus Ear exam: PRESENT: normal external ear exam Mouth exam: PRESENT: moist Respiratory exam: PRESENT: clear to auscultation omar Cardiovascular exam: PRESENT: RRR. ABSENT: diastolic murmur, rubs, systolic murmur Vascular exam: PRESENT: normal capillary refill. ABSENT: pallor GI/Abdominal exam: PRESENT: normal bowel sounds, soft, tenderness - nonspecific to deep palpation in the RUQ. ABSENT: distended, guarding, mass, organolmegaly, rebound Rectal exam: PRESENT: deferred Extremities exam: ABSENT: pedal edema Musculoskeletal exam: PRESENT: normal inspection. ABSENT: tenderness Neurological exam: PRESENT: alert, awake, oriented to person, oriented to place, oriented to time, oriented to situation, CN II-XII grossly intact. ABSENT: motor sensory deficit Psychiatric exam: PRESENT: appropriate affect, normal mood. ABSENT: homicidal ideation, suicidal ideation Skin exam: PRESENT: dry, warm Results Laboratory Results: 05/15/18 06:05 05/15/18 06:05 05/14/18 05/14/18 05/14/18 14:40 14:40 14:40 WBC 11.4 H RBC 4.01 Hgb 9.4 L Hct 29.8 L MCV 74 L MCH 23.5 L MCHC 31.6 L RDW 16.2 H Plt Count 433 Seg Neutrophils % 78.7 H Lymphocytes % 11.5 L Monocytes % 8.6 Eosinophils % 0.4 Basophils % 0.8 Absolute Neutrophils 8.9 H Absolute Lymphocytes 1.3 Absolute Monocytes 1.0 Absolute Eosinophils 0.0 Absolute Basophils 0.1 Sodium 137.4 Potassium 4.3 Chloride 102 Carbon Dioxide 30 Anion Gap 5 BUN 13 Creatinine 0.81 Est GFR ( Amer) > 60 Est GFR (Non-Af Amer) > 60 Glucose 120 H Calcium 8.9 Magnesium Total Bilirubin 0.5 AST 27 ALT 23 Alkaline Phosphatase 87 Total Protein 5.8 L Albumin 3.0 L Urine Color Urine Appearance Urine pH Ur Specific [place] Urine Protein Urine Glucose (UA) Urine Ketones Urine Blood Urine Nitrite Ur Leukocyte Esterase Urine WBC (Auto) Urine RBC (Auto) Stool Occult Blood Stool for White Cells Blood Type A POSITIVE Antibody Screen NEGATIVE 05/14/18 05/14/18 05/14/18 15:59 15:59 15:59 WBC RBC Hgb Hct MCV MCH MCHC RDW Plt Count Seg Neutrophils % Lymphocytes % Monocytes % Eosinophils % Basophils % Absolute Neutrophils Absolute Lymphocytes Absolute Monocytes Absolute Eosinophils Absolute Basophils Sodium Potassium Chloride Carbon Dioxide Anion Gap BUN Creatinine Est GFR ( Amer) Est GFR (Non-Af Amer) Glucose Calcium Magnesium Total Bilirubin AST ALT Alkaline Phosphatase Total Protein Albumin Urine Color YELLOW Urine Appearance CLOUDY Urine pH 5.0 Ur Specific [place] 1.030 Urine Protein 100 H Urine Glucose (UA) 50 H Urine Ketones 20 H Urine Blood NEGATIVE Urine Nitrite NEGATIVE Ur Leukocyte Esterase TRACE H Urine WBC (Auto) 5 Urine RBC (Auto) 6 Stool Occult Blood POSITIVE Stool for White Cells NO WBCs SEEN Blood Type Antibody Screen 05/15/18 05/15/18 06:05 06:05 WBC 6.6 RBC 3.17 L Hgb 7.5 L Hct 23.4 L MCV 74 L MCH 23.8 L MCHC 32.3 RDW 16.2 H Plt Count 296 Seg Neutrophils % 68.3 Lymphocytes % 18.7 Monocytes % 11.0 Eosinophils % 1.6 Basophils % 0.4 Absolute Neutrophils 4.5 Absolute Lymphocytes 1.2 Absolute Monocytes 0.7 Absolute Eosinophils 0.1 Absolute Basophils 0.0 Sodium 139.2 Potassium 3.6 Chloride 106 Carbon Dioxide 28 Anion Gap 5 BUN 7 Creatinine 0.66 Est GFR ( Amer) > 60 Est GFR (Non-Af Amer) > 60 Glucose 96 Calcium 8.1 L Magnesium 2.1 Total Bilirubin 0.2 AST 21 ALT 26 Alkaline Phosphatase 69 Total Protein 4.6 L Albumin 2.2 L Urine Color Urine Appearance Urine pH Ur Specific [place] Urine Protein Urine Glucose (UA) Urine Ketones Urine Blood Urine Nitrite Ur Leukocyte Esterase Urine WBC (Auto) Urine RBC (Auto) Stool Occult Blood Stool for White Cells Blood Type Antibody Screen Impressions: Abdomen/Pelvis CT 05/14/18 00:00 IMPRESSION: Malignant neoplasm involving the hepatic flexure of the colon, as described. Other findings as described. TECHNICAL DOCUMENTATION: Quality ID # 436: Final reports with documentation of one or more dose reduction techniques (e.g., Automated exposure control, adjustment of the mA and/or kV according to patient size, use of iterative reconstruction technique) copyright 2011 [employer]- All Rights Reserved Assessment & Plan - Diagnosis (1) Mass of hepatic flexure of colon Is this a current diagnosis for this admission?: Yes Plan: Based on her completed CT Abdomen and pelvis with contrast findings are very suggestive of colon cancer with possible serosa involvement. I will request oncology and surgicalist consultation for further evaluation and management. I had extensive discussion with patient and daughter at bedside during this visit. (2) Acute on chronic blood loss anemia Is this a current diagnosis for this admission?: Yes Plan: Probably due to above. Ongoing PRBC transfusion 3rd of scheduled 4 units. Follow up on post transfusion CBC. (3) Abdominal pain Qualifiers: Abdominal location: right upper quadrant Qualified Code(s): R10.11 - Right upper quadrant pain Is this a current diagnosis for this admission?: Yes Plan: Related to #1 above. Continue current medication management. Patient will remain on clear liquid diet. (4) Diarrhea Qualifiers: Diarrhea type: unspecified type Qualified Code(s): R19.7 - Diarrhea, unspecified Is this a current diagnosis for this admission?: Yes Plan: Presently improving. Probably due to her GI bleeding. - Time Time Spent with patient: 25-34 minutes Medications reviewed and adjusted accordingly: Yes Anticipated discharge: Home with Homehealth Within: Other - Inpatient Certification Based on my medical assessment, after consideration of the patient's comorbidities, presenting symptoms, or acuity I expect that the services needed warrant INPATIENT care.: Yes I certify that my determination is in accordance with my understanding of Medicare's requirements for reasonable and necessary INPATIENT services [42 CFR 412.3e].: Yes Medical Necessity: Significant Comorbidiites Make Outpatient Treatment Too Risky, Need Close Monitoring Due to Risk of Patient Decompensation, Need For IV Fluids, Need for Surgery, Risk of Complication if Not Cared For in Hospital, Risk of Diagnosis Which Will Require Inpatient Eval/Care/Monitoring Post Hospital Care: D/C Visual Educator Documentation - Plan Summary Plan Summary: As per above outlined care plan. Prognosis remain guarded.
[2018-05-15] MEDS: ENOXAPARIN SODIUM INJ 40 MG/0.4 ML DISP.SYRIN SUBCUT SCH ×2 (12:03→12:12)
[2018-05-15 12:04] LABS: ABSOLUTE RETICS # 0.144 10^6/uL (0.028-0.122); RETICULOCYTE COUNT (AUTO) 4.48 % (0.66-2.85)
[2018-05-15] MEDS: FAMOTIDINE 20 MG TABLET PO SCH ×2 (12:04→22:10)
[2018-05-15 12:16] LABS: IRON(TIBC) 14.8 ug/dL (37-170)
[2018-05-15 12:50] LABS: CARCINOEMBRYONIC ANTIGEN 1.3 ng/mL (<3.0)
[2018-05-15] MEDS: OXYCODONE HCL IR 5 MG TABLET PO PRN ×2 (12:55→19:02)
--- NOTE | 2018-05-15 13:15 | PDOC CONSULTATION ---
Consultation Consult Date: 05/15/18 Attending physician:: BAUDILIO PEREZ Consult reason:: New right colonic mass History of Present Illness Admission Date/PCP: 05/14/18 16:40 MAGGI MENENDEZ Patient complains of: Constipation alternating with diarrhea, black tarry stool, weakness, abdominal pain History of Present Illness: EDIL BENNETT is a 67 year old female who has had about a 1 month history of weakness, abdominal pain, 2-week history of continuous black stool with diarrhea. Prior to that she was having some issues with constipation. Constipation is ongoing for about 2-3 months. Ultimately she started having pain in the abdomen and fatigue and weakness, ultimately presented to the ED, hemoglobin was in the 9 range on presentation. But with hydration dropped down to 7.5. MCV is 75, consistent with an iron deficiency picture. Iron studies and B12 levels are now pending. She had CT of the abdomen pelvis which indicated a large lobular soft tissue mass involving the hepatic flexure of the colon measuring 10 x 9 x 8 cm, mildly prominent lymph nodes and streaky changes in the surrounding fat suspicious for extra serosal spread of tumor, no evidence however of liver lesions, or other spread. She has not had any significant weight loss. She currently has pain poorly controlled by Tylenol. I discussed initiation of oxycodone for her. I also discussed her case with Dr. Alfaro of general surgery who will see her today. Past Medical History Pulmonary Medical History: Reports: Chronic Obstructive Pulmonary Disease (COPD) Endocrine Medical History: Reports: Diabetes Mellitus Type 2 Renal/ Medical History: Reports: Other - Overactive bladder Musculoskeltal Medical History: Reports: Arthritis Past Surgical History Past Surgical History: Reports: Appendectomy, Tonsillectomy, Tubal Ligation, Other - Colonoscopy 1-2 years ago Social History Information Source: Patient Lives with: Family Smoking Status: Current Every Day Smoker Cigarettes Packs Per Day: 0.5 Number of Years Smokin Frequency of Alcohol Use: None Hx Recreational Drug Use: No Drugs: None Hx Prescription Drug Abuse: No - Advance Directive Resuscitation Status: Full Code Family History Family History: Malignancy - sister colon 55, sister breast 59, sister lymphoma, 1/2 brother lymphoma Parental Family History Reviewed: Yes Children Family History Reviewed: Yes Sibling(s) Family History Reviewed.: Yes Medication/Allergy Home Medications: Fexofenadine HCl [Aleshia] 180 mg PO DAILY 05/14/18 Mirabegron [Myrbetriq] 50 mg PO DAILY 05/14/18 Allergies/Adverse Reactions: Penicillins Allergy (Verified 05/14/18 14:46) Review of Systems Constitutional: ABSENT: chills, fever(s), headache(s), weight gain, weight loss Eyes: ABSENT: visual disturbances Ears: ABSENT: hearing changes Cardiovascular: ABSENT: chest pain, dyspnea on exertion, edema, orthropnea, palpitations Respiratory: ABSENT: cough, hemoptysis Gastrointestinal: ABSENT: abdominal pain, constipation, diarrhea, hematemesis, hematochezia, nausea, vomiting Genitourinary: ABSENT: dysuria, hematuria Musculoskeletal: ABSENT: joint swelling Integumentary: ABSENT: rash, wounds Neurological: ABSENT: abnormal gait, abnormal speech, confusion, dizziness, focal weakness, syncope Psychiatric: ABSENT: anxiety, depression, homidical ideation, suicidal ideation Endocrine: ABSENT: cold intolerance, heat intolerance, polydipsia, polyuria Hematologic/Lymphatic: ABSENT: easy bleeding, easy bruising Physical Exam Vital Signs: Temp Pulse Resp BP Pulse Ox 98.0 F 69 16 112/47 L 98 05/15/18 11:39 05/15/18 11:39 05/15/18 11:39 05/15/18 11:39 05/15/18 11:39 Intake & Output 05/14/18 05/15/18 05/16/18 06:59 06:59 06:59 Intake Total 1880 0 Balance 1880 0 Weight 74.1 kg General appearance: PRESENT: no acute distress, well-developed, well-nourished Head exam: PRESENT: atraumatic, normocephalic Eye exam: PRESENT: conjunctiva pink, EOMI, PERRLA. ABSENT: scleral icterus Ear exam: PRESENT: normal external ear exam Mouth exam: PRESENT: moist, tongue midline Neck exam: ABSENT: carotid bruit, JVD, lymphadenopathy, thyromegaly Respiratory exam: PRESENT: clear to auscultation omar. ABSENT: rales, rhonchi, wheezes Cardiovascular exam: PRESENT: RRR. ABSENT: diastolic murmur, rubs, systolic murmur Pulses: PRESENT: normal dorsalis pedis pul Vascular exam: PRESENT: normal capillary refill GI/Abdominal exam: PRESENT: normal bowel sounds, soft. ABSENT: distended, gu arding, mass, organolmegaly, rebound, tenderness Rectal exam: PRESENT: deferred Extremities exam: PRESENT: full ROM. ABSENT: calf tenderness, clubbing, pedal edema Neurological exam: PRESENT: alert, awake, oriented to person, oriented to place, oriented to time, oriented to situation, CN II-XII grossly intact. ABSENT: mot or sensory deficit Psychiatric exam: PRESENT: appropriate affect, normal mood. ABSENT: homicidal ideation, suicidal ideation Skin exam: PRESENT: dry, intact, warm. ABSENT: cyanosis, rash Results Laboratory Results: 05/15/18 06:05 05/15/18 06:05 05/14/18 05/14/18 05/14/18 14:40 14:40 14:40 WBC 11.4 H RBC 4.01 Hgb 9.4 L Hct 29.8 L MCV 74 L MCH 23.5 L MCHC 31.6 L RDW 16.2 H Plt Count 433 Seg Neutrophils % 78.7 H Lymphocytes % 11.5 L Monocytes % 8.6 Eosinophils % 0.4 Basophils % 0.8 Absolute Neutrophils 8.9 H Absolute Lymphocytes 1.3 Absolute Monocytes 1.0 Absolute Eosinophils 0.0 Absolute Basophils 0.1 Retic Count (auto) Absolute Retic Sodium 137.4 Potassium 4.3 Chloride 102 Carbon Dioxide 30 Anion Gap 5 BUN 13 Creatinine 0.81 Est GFR ( Amer) > 60 Est GFR (Non-Af Amer) > 60 Glucose 120 H Calcium 8.9 Magnesium Total Bilirubin 0.5 AST 27 ALT 23 Alkaline Phosphatase 87 Total Protein 5.8 L Albumin 3.0 L Urine Color Urine Appearance Urine pH Ur Specific [place] Urine Protein Urine Glucose (UA) Urine Ketones Urine Blood Urine Nitrite Ur Leukocyte Esterase Urine WBC (Auto) Urine RBC (Auto) Stool Occult Blood Stool for White Cells Blood Type A POSITIVE Antibody Screen NEGATIVE 05/14/18 05/14/18 05/14/18 15:59 15:59 15:59 WBC RBC Hgb Hct MCV MCH MCHC RDW Plt Count Seg Neutrophils % Lymphocytes % Monocytes % Eosinophils % Basophils % Absolute Neutrophils Absolute Lymphocytes Absolute Monocytes Absolute Eosinophils Absolute Basophils Retic Count (auto) Absolute Retic Sodium Potassium Chloride Carbon Dioxide Anion Gap BUN Creatinine Est GFR ( Amer) Est GFR (Non-Af Amer) Glucose Calcium Magnesium Total Bilirubin AST ALT Alkaline Phosphatase Total Protein Albumin Urine Color YELLOW Urine Appearance CLOUDY Urine pH 5.0 Ur Specific [place] 1.030 Urine Protein 100 H Urine Glucose (UA) 50 H Urine Ketones 20 H Urine Blood NEGATIVE Urine Nitrite NEGATIVE Ur Leukocyte Esterase TRACE H Urine WBC (Auto) 5 Urine RBC (Auto) 6 Stool Occult Blood POSITIVE Stool for White Cells NO WBCs SEEN Blood Type Antibody Screen 05/15/18 05/15/18 05/15/18 06:05 06:05 06:05 WBC 6.6 RBC 3.17 L Hgb 7.5 L Hct 23.4 L MCV 74 L MCH 23.8 L MCHC 32.3 RDW 16.2 H Plt Count 296 Seg Neutrophils % 68.3 Lymphocytes % 18.7 Monocytes % 11.0 Eosinophils % 1.6 Basophils % 0.4 Absolute Neutrophils 4.5 Absolute Lymphocytes 1.2 Absolute Monocytes 0.7 Absolute Eosinophils 0.1 Absolute Basophils 0.0 Retic Count (auto) 4.48 H Absolute Retic 0.144 H Sodium 139.2 Potassium 3.6 Chloride 106 Carbon Dioxide 28 Anion Gap 5 BUN 7 Creatinine 0.66 Est GFR ( Amer) > 60 Est GFR (Non-Af Amer) > 60 Glucose 96 Calcium 8.1 L Magnesium 2.1 Total Bilirubin 0.2 AST 21 ALT 26 Alkaline Phosphatase 69 Total Protein 4.6 L Albumin 2.2 L Urine Color Urine Appearance Urine pH Ur Specific [place] Urine Protein Urine Glucose (UA) Urine Ketones Urine Blood Urine Nitrite Ur Leukocyte Esterase Urine WBC (Auto) Urine RBC (Auto) Stool Occult Blood Stool for White Cells Blood Type Antibody Screen Impressions: Abdomen/Pelvis CT 05/14/18 00:00 IMPRESSION: Malignant neoplasm involving the hepatic flexure of the colon, as described. Other findings as described. TECHNICAL DOCUMENTATION: Quality ID # [id number]: Final reports with documentation of one or more dose reduction techniques (e.g., Automated exposure control, adjustment of the mA and/or kV according to patient size, use of iterative reconstruction technique) copyright 2011 [employer]- All Rights Reserved Status: Image reviewed by me Assessment & Plan - Diagnosis (1) Mass of hepatic flexure of colon Is this a current diagnosis for this admission?: Yes Plan: Concerning for primary colon cancer, discussed with general surgery who will be seeing her today, feel that they should do both colonoscopy and then consideration of right hemicolectomy thereafter. She does have strong family history of colon and breast cancer so Feliciano syndrome may be possible but she also has history of camp liz water exposure. (2) Anemia Qualifiers: Anemia type: iron deficiency Iron deficiency anemia type: chronic blood loss Qualified Code(s): D50.0 - Iron deficiency anemia secondary to blood loss (chronic) Is this a current diagnosis for this admission?: Yes Plan: Iron deficiency anemia secondary to chronic blood loss secondary to most likely the colon tumor. Iron studies pending, will treat accordingly with IV iron, already received 2 units of packed red blood cell awaiting CBC from that. B12 and folate done and treat accordingly that way too. (3) Pain, neoplasm-related Is this a current diagnosis for this admission?: Yes Plan: Likely related to the tumor, start oxycodone for patient. - Time Time Spent: Greater than 70 Minutes - Inpatient Certification Based on my medical assessment, after consideration of the patient's comorbidities, presenting symptoms, or acuity I expect that the services needed warrant INPATIENT care.: Yes I certify that my determination is in accordance with my understanding of Medicare's requirements for reasonable and necessary INPATIENT services [42 CFR 412.3e].: Yes Medical Necessity: Need for Pain Control, Need for Surgery, Risk of Complication if Not Cared For in Hospital
[2018-05-15 13:24] LABS: FOLATE 8.57 ng/mL (>2.76)
[2018-05-15 18:02] LABS: HEMATOCRIT 32.7 % (36.0-47.0); HEMOGLOBIN 10.6 g/dL (12.0-15.5); MEAN CORPUSCULAR HEMOGLOBIN 25.1 pg (27.0-33.4); MEAN CORPUSCULAR HGB CONC 32.5 g/dL (32.0-36.0); MEAN CORPUSCULAR VOLUME 77 fl (80-97); PLATELET COUNT 321 10^3/uL (150-450); RED BLOOD COUNT 4.24 10^6/uL (3.72-5.28); RED CELL DISTRIBUTION WIDTH 17.1 % (11.5-14.0); WHITE BLOOD COUNT 7.5 10^3/uL (4.0-10.5)
[2018-05-15] MEDS: NORMAL SALINE 1000 ML 1,000 ML IV PRN (18:30)
[2018-05-16 04:49] LABS: ABSOLUTE BASOPHILS # (AUTO) 0.1 10^3/uL (0.0-0.2); ABSOLUTE EOSINOPHILS # (AUTO) 0.2 10^3/uL (0.0-0.6); ABSOLUTE LYMPHOCYTES (AUTO) 1.6 10^3/uL (0.5-4.7); ABSOLUTE MONOCYTES (AUTO) 0.9 10^3/uL (0.1-1.4); ABSOLUTE NEUT (AUTO) 4.4 10^3/uL (1.7-8.2); BASOPHILS % (AUTO) 0.7 % (0-2); EOSINOPHILS % (AUTO) 3.4 % (0-6); HEMATOCRIT 29.2 % (36.0-47.0); HEMOGLOBIN 9.6 g/dL (12.0-15.5); LYMPHOCYTES % (AUTO) 21.9 % (13-45); MEAN CORPUSCULAR HEMOGLOBIN 25.1 pg (27.0-33.4); MEAN CORPUSCULAR HGB CONC 32.7 g/dL (32.0-36.0); MEAN CORPUSCULAR VOLUME 77 fl (80-97); MONOCYTES % (AUTO) 12.6 % (3-13); PLATELET COUNT 284 10^3/uL (150-450); RED BLOOD COUNT 3.81 10^6/uL (3.72-5.28); RED CELL DISTRIBUTION WIDTH 16.8 % (11.5-14.0); SEGMENTED NEUTROPHILS % (AUTO) 61.4 % (42-78); TOTAL CELLS COUNTED % (AUTO) 100 %; WHITE BLOOD COUNT 7.2 10^3/uL (4.0-10.5)
[2018-05-16] MEDS: METRONIDAZOLE 500 MG/NS RTU 500 MG/100 ML RTUPB IV SCH ×2 (06:29)
[2018-05-16] MEDS ORDERED: POTASSIUM CHLORIDE 20 MEQ/15 ML UDCUP PO ONE ×3 (07:00→18:00)
--- NOTE | 2018-05-16 07:11 | PDOC CONSULTATION ---
Consultation Consult Date: 05/15/18 Consult reason:: possible colon mass History of Present Illness Admission Date/PCP: 05/14/18 16:40 MAGGI MENENDEZ Patient complains of: diarrhea, abdominal pain, colon mass History of Present Illness: EDIL BENNETT is a 67 year old female seen in consultation at the request of Dr. Garcia. There is a female patient with a 3-week history of watery diarrhea that is black in color. The patient reports crampy abdominal pain and anemia. She denies nausea, vomiting, fevers, chills, chest pain, shortness of breath. She does report weakness, malaise, and fatigue. She presented to the emergency department where no abnormality was identified and sent home. She was sent for direct admission to the hospital by Dr. Gamez. Nothing makes her pain or diarr hea any worse or better. Past Medical History Pulmonary Medical History: Reports: Chronic Obstructive Pulmonary Disease (COPD) Endocrine Medical History: Reports: Diabetes Mellitus Type 2 Renal/ Medical History: Reports: Other - Overactive bladder Musculoskeltal Medical History: Reports: Arthritis Past Surgical History Past Surgical History: Reports: Appendectomy, Tonsillectomy, Tubal Ligation, Other - Colonoscopy 1-2 years ago that was reportedly normal. Social History Lives with: Family Smoking Status: Current Every Day Smoker Cigarettes Packs Per Day: 0.5 Number of Years Smokin Frequency of Alcohol Use: None Hx Recreational Drug Use: No Drugs: None Hx Prescription Drug Abuse: No - Advance Directive Resuscitation Status: Full Code Family History Family History: Malignancy - sister colon 55, sister breast 59, sister lymphoma, 1/2 brother lymphoma Parental Family History Reviewed: Yes Children Family History Reviewed: Yes Sibling(s) Family History Reviewed.: Yes Medication/Allergy Home Medications: Fexofenadine HCl [Aleshia] 180 mg PO DAILY 05/14/18 Mirabegron [Myrbetriq] 50 mg PO DAILY 05/14/18 Allergies/Adverse Reactions: Penicillins Allergy (Verified 05/14/18 14:46) Review of Systems Constitutional: PRESENT: anorexia, chills, fatigue, fever(s) Eyes: ABSENT: visual disturbances Ears: ABSENT: hearing changes Nose, Mouth, and Throat: ABSENT: mouth pain Cardiovascular: ABSENT: chest pain, dyspnea on exertion Respiratory: ABSENT: cough, dyspnea Gastrointestinal: PRESENT: abdominal pain, bloating, diarrhea, melena Genitourinary: ABSENT: difficulty urinating Musculoskeletal: ABSENT: back pain Integumentary: ABSENT: pruritus, rash Neurological: ABSENT: confusion, convulsions, dizziness Psychiatric: ABSENT: anxiety, depression Endocrine: ABSENT: cold intolerance, heat intolerance Hematologic/Lymphatic: ABSENT: easy bleeding, easy bruising Physical Exam Vital Signs: Temp Pulse Resp BP Pulse Ox 98.3 F 62 16 114/44 L 96 05/15/18 14:42 05/15/18 14:42 05/15/18 14:42 05/15/18 14:42 05/15/18 14:42 Intake & Output 05/14/18 05/15/18 05/16/18 06:59 06:59 06:59 Intake Total 1880 600 Balance 1880 600 Weight 74.1 kg General appearance: PRESENT: no acute distress, cooperative Head exam: PRESENT: atraumatic, normocephalic Eye exam: PRESENT: EOMI, PERRLA. ABSENT: scleral icterus Mouth exam: PRESENT: moist, neck supple Neck exam: ABSENT: meningismus, tenderness, thyromegaly, tracheal deviation Respiratory exam: PRESENT: clear to auscultation omar, unlabored. ABSENT: chest wall tenderness, tachypnea, wheezes Cardiovascular exam: PRESENT: RRR Pulses: PRESENT: normal radial pulses Vascular exam: PRESENT: normal capillary refill. ABSENT: pallor GI/Abdominal exam: PRESENT: guarding - Right upper quadrant, soft, tenderness - Right upper quadrant. ABSENT: distended, rebound, rigid Rectal exam: PRESENT: deferred Extremities exam: ABSENT: clubbing Musculoskeletal exam: ABSENT: deformity Neurological exam: PRESENT: alert, awake, oriented to person, oriented to place, oriented to time, oriented to situation Psychiatric exam: ABSENT: agitated, anxious, depressed Focused psych exam: ABSENT: delusional Skin exam: ABSENT: cyanosis, erythema, jaundice Results Laboratory Results: 05/15/18 06:05 05/15/18 06:05 05/14/18 05/14/18 05/15/18 14:40 15:59 06:05 WBC 6.6 RBC 3.17 L Hgb 7.5 L Hct 23.4 L MCV 74 L MCH 23.8 L MCHC 32.3 RDW 16.2 H Plt Count 296 Seg Neutrophils % 68.3 Lymphocytes % 18.7 Monocytes % 11.0 Eosinophils % 1.6 Basophils % 0.4 Absolute Neutrophils 4.5 Absolute Lymphocytes 1.2 Absolute Monocytes 0.7 Absolute Eosinophils 0.1 Absolute Basophils 0.0 Retic Count (auto) Absolute Retic Sodium Potassium Chloride Carbon Dioxide Anion Gap BUN Creatinine Est GFR ( Amer) Est GFR (Non-Af Amer) Glucose Calcium Magnesium Iron TIBC % Saturation Ferritin Total Bilirubin AST ALT Alkaline Phosphatase Total Protein Albumin Vitamin B12 Folate Stool for White Cells NO WBCs SEEN Blood Type A POSITIVE Antibody Screen NEGATIVE 05/15/18 05/15/18 05/15/18 06:05 06:05 06:05 WBC RBC Hgb Hct MCV MCH MCHC RDW Plt Count Seg Neutrophils % Lymphocytes % Monocytes % Eosinophils % Basophils % Absolute Neutrophils Absolute Lymphocytes Absolute Monocytes Absolute Eosinophils Absolute Basophils Retic Count (auto) 4.48 H Absolute Retic 0.144 H Sodium 139.2 Potassium 3.6 Chloride 106 Carbon Dioxide 28 Anion Gap 5 BUN 7 Creatinine 0.66 Est GFR ( Amer) > 60 Est GFR (Non-Af Amer) > 60 Glucose 96 Calcium 8.1 L Magnesium 2.1 Iron 14.8 L TIBC 283 % Saturation 5 Ferritin 16.60 Total Bilirubin 0.2 AST 21 ALT 26 Alkaline Phosphatase 69 Total Protein 4.6 L Albumin 2.2 L Vitamin B12 321.0 Folate 8.57 Stool for White Cells Blood Type Antibody Screen Impressions: Abdomen/Pelvis CT 05/14/18 00:00 IMPRESSION: Malignant neoplasm involving the hepatic flexure of the colon, as described. Other findings as described. TECHNICAL DOCUMENTATION: Quality ID # [id number]: Final reports with documentation of one or more dose reduction techniques (e.g., Automated exposure control, adjustment of the mA and/or kV according to patient size, use of iterative reconstruction technique) copyright 2011 [employer]- All Rights Reserved Assessment & Plan - Diagnosis (1) Melena Is this a current diagnosis for this admission?: Yes (2) Abdominal mass, RUQ (right upper quadrant) Is this a current diagnosis for this admission?: Yes (3) Acute on chronic blood loss anemia Is this a current diagnosis for this admission?: Yes (4) Diarrhea Qualifiers: Diarrhea type: unspecified type Qualified Code(s): R19.7 - Diarrhea, unspecified Is this a current diagnosis for this admission?: Yes - Plan Summary Plan Summary: This is a 67-year-old female with anemia, melena, and an abdominal mass of unknown origin. The patient reports that she had a normal colonoscopy approximately 12-18 months ago. I have attempted to reach the physician/clinic that performed his colonoscopy, but was unable to reach them. The patient reports that the doctor's office has closed. The patient reports a 3-week history of melena, diarrhea, and abdominal pain. I have reviewed her CT scan. There is a mass in the right upper quadrant, involving the hepatic flexure of the colon. I have spoken personally to Dr. Mcrae and Dr. Gamez. Plan for colonoscopy in the very near future by Dr. Gamez. I will make further recommendations based on his findings. I will continue to follow this patient closely with you.
[2018-05-16] MEDS ORDERED: MAGNESIUM CITRATE 296 ML BOTTLE PO ONE ×2 (08:00→10:30)
[2018-05-16] MEDS: IPRATROPIUM/ALBUTEROL 0.5-2.5 MG/3 ML AMPUL NEB SCH ×3 (08:43→20:00)
[2018-05-16] MEDS: NORMAL SALINE 1000 ML 1,000 ML IV PRN (10:38)
--- NOTE | 2018-05-16 11:03 | PDOC PROGRESS REPORT ---
Subjective Progress Note for:: 05/16/18 Subjective:: Patient is undergoing preparation for EGD and colonoscopy later today by Dr. Gamez. No significant abdominal pain, nausea or vomiting. She denied any fever or chills. She is requesting for Aleshia due to her congestion symptoms. Patient reported that she was on Aleshia at home. Reason For Visit: DIARRHEA,GI BLEED Physical Exam Vital Signs: Temp Pulse Resp BP Pulse Ox 98.2 F 69 18 93/52 L 94 05/16/18 07:24 05/16/18 07:24 05/16/18 07:24 05/16/18 07:24 05/16/18 07:24 Intake & Output 05/15/18 05/16/18 05/17/18 06:59 06:59 06:59 Intake Total 2880 2260 Balance 2880 2260 Weight 74.1 kg Physical Exam: General appearance: PRESENT: no acute distress, well-developed, well-nourished Head exam: PRESENT: atraumatic, normocephalic Eye exam: PRESENT: conjunctiva pink, EOMI, PERRLA. ABSENT: pallor, scleral icterus Ear exam: PRESENT: normal external ear exam Mouth exam: PRESENT: moist Respiratory exam: PRESENT: clear to auscultation omar Cardiovascular exam: PRESENT: RRR. ABSENT: diastolic murmur, rubs, systolic murmur GI/Abdominal exam: PRESENT: normal bowel sounds, soft. ABSENT: tenderness, distended, guarding, mass, organomegaly, rebound Extremities exam: ABSENT: pedal edema Musculoskeletal exam: PRESENT: normal inspection. ABSENT: tenderness Neurological exam: PRESENT: alert, awake, oriented to person, oriented to place, oriented to time, oriented to situation, CN II-XII grossly intact. ABSENT: motor sensory deficit Psychiatric exam: PRESENT: appropriate affect, normal mood. ABSENT: homicidal ideation, suicidal ideation Skin exam: PRESENT: dry, warm Results Laboratory Results: 05/16/18 04:40 05/15/18 06:05 05/14/18 05/15/18 05/15/18 14:40 06:05 06:05 WBC RBC Hgb Hct MCV MCH MCHC RDW Plt Count Seg Neutrophils % Lymphocytes % Monocytes % Eosinophils % Basophils % Absolute Neutrophils Absolute Lymphocytes Absolute Monocytes Absolute Eosinophils Absolute Basophils Retic Count (auto) 4.48 H Absolute Retic 0.144 H Magnesium Iron 14.8 L TIBC 283 % Saturation 5 Ferritin 16.60 Vitamin B12 321.0 Folate 8.57 Blood Type A POSITIVE Antibody Screen NEGATIVE 05/15/18 05/16/18 05/16/18 17:44 04:40 04:40 WBC 7.5 7.2 RBC 4.24 3.81 Hgb 10.6 L D 9.6 L Hct 32.7 L 29.2 L MCV 77 L 77 L MCH 25.1 L 25.1 L MCHC 32.5 32.7 RDW 17.1 H 16.8 H Plt Count 321 284 Seg Neutrophils % 61.4 Lymphocytes % 21.9 Monocytes % 12.6 Eosinophils % 3.4 Basophils % 0.7 Absolute Neutrophils 4.4 Absolute Lymphocytes 1.6 Absolute Monocytes 0.9 Absolute Eosinophils 0.2 Absolute Basophils 0.1 Retic Count (auto) Absolute Retic Magnesium 2.2 Iron TIBC % Saturation Ferritin Vitamin B12 Folate Blood Type Antibody Screen Impressions: Abdomen/Pelvis CT 05/14/18 00:00 IMPRESSION: Malignant neoplasm involving the hepatic flexure of the colon, as described. Other findings as described. TECHNICAL DOCUMENTATION: Quality ID # 436: Final reports with documentation of one or more dose reduction techniques (e.g., Automated exposure control, adjustment of the mA and/or kV according to patient size, use of iterative reconstruction technique) copyright 2011 [employer]- All Rights Reserved Assessment & Plan - Diagnosis (1) Mass of hepatic flexure of colon Is this a current diagnosis for this admission?: Yes (2) Acute on chronic blood loss anemia Is this a current diagnosis for this admission?: Yes (3) Abdominal pain Qualifiers: Abdominal location: right upper quadrant Qualified Code(s): R10.11 - Right upper quadrant pain Is this a current diagnosis for this admission?: Yes (4) Diarrhea Qualifiers: Diarrhea type: unspecified type Qualified Code(s): R19.7 - Diarrhea, unspecified Is this a current diagnosis for this admission?: Yes (5) Seasonal allergic rhinitis Qualifiers: Allergic rhinitis trigger: unspecified Qualified Code(s): J30.2 - Other seasonal allergic rhinitis Is this a current diagnosis for this admission?: Yes Plan: Start on Aleshia 180 mg po daily. - Time Time Spent with patient: 25-34 minutes Medications reviewed and adjusted accordingly: Yes Anticipated discharge: Home Within: Other - Inpatient Certification Based on my medical assessment, after consideration of the patient's comorbidities, presenting symptoms, or acuity I expect that the services needed warrant INPATIENT care.: Yes I certify that my determination is in accordance with my understanding of Medicare's requirements for reasonable and necessary INPATIENT services [42 CFR 412.3e].: Yes Medical Necessity: Significant Comorbidiites Make Outpatient Treatment Too Risky, Need Close Monitoring Due to Risk of Patient Decompensation, Need For IV Fluids, Need for Pain Control, Need for IV Antibiotics, Need for Surgery, Risk of Complication if Not Cared For in Hospital, Risk of Diagnosis Which Will Require Inpatient Eval/Care/Monitoring Post Hospital Care: D/C Access Tech Documentation - Plan Summary Plan Summary: D/C IV Ciprofloxacin and Flagyl coverage. Maintain on all other current medication management. Follow up on endoscopy and colonoscopy findings. Consult ants input appreciated.
[2018-05-16] MEDS: ENOXAPARIN SODIUM INJ 40 MG/0.4 ML DISP.SYRIN SUBCUT SCH (11:06)
[2018-05-16] MEDS: FAMOTIDINE 20 MG TABLET PO SCH (11:06)
--- NOTE | 2018-05-16 13:39 | PDOC PROGRESS REPORT ---
Subjective Progress Note for:: 05/16/18 Subjective:: Patient is being planned for EGD and colonoscopy in about 1 hour. Daughter was at bedside, today we had a long discussion about next steps of care, we spent about 45 minutes in discussion today. Reason For Visit: DIARRHEA,GI BLEED Physical Exam Vital Signs: Temp Pulse Resp BP Pulse Ox 97.8 F 70 18 122/44 L 96 05/16/18 11:15 05/16/18 11:15 05/16/18 11:15 05/16/18 11:15 05/16/18 11:15 Intake & Output 05/15/18 05/16/18 05/17/18 06:59 06:59 06:59 Intake Total 2880 2260 Balance 2880 2260 Weight 74.1 kg General appearance: PRESENT: no acute distress, well-developed, well-nourished Head exam: PRESENT: atraumatic, normocephalic Eye exam: PRESENT: conjunctiva pink, EOMI, PERRLA. ABSENT: scleral icterus Ear exam: PRESENT: normal external ear exam Mouth exam: PRESENT: moist, tongue midline Neck exam: ABSENT: carotid bruit, JVD, lymphadenopathy, thyromegaly Respiratory exam: PRESENT: clear to auscultation omar. ABSENT: rales, rhonchi, wheezes Cardiovascular exam: PRESENT: RRR. ABSENT: diastolic murmur, rubs, systolic murmur Pulses: PRESENT: normal dorsalis pedis pul Vascular exam: PRESENT: normal capillary refill GI/Abdominal exam: PRESENT: normal bowel sounds, soft. ABSENT: distended, guarding, mass, organolmegaly, rebound, tenderness Rectal exam: PRESENT: deferred Extremities exam: PRESENT: full ROM. ABSENT: calf tenderness, clubbing, pedal edema Neurological exam: PRESENT: alert, awake, oriented to person, oriented to place, oriented to time, oriented to situation, CN II-XII grossly intact. ABSENT: motor sensory deficit Psychiatric exam: PRESENT: appropriate affect, normal mood. ABSENT: homicidal ideation, suicidal ideation Skin exam: PRESENT: dry, intact, warm. ABSENT: cyanosis, rash Results Laboratory Results: 05/16/18 04:40 05/15/18 06:05 05/15/18 05/16/18 05/16/18 17:44 04:40 04:40 WBC 7.5 7.2 RBC 4.24 3.81 Hgb 10.6 L D 9.6 L Hct 32.7 L 29.2 L MCV 77 L 77 L MCH 25.1 L 25.1 L MCHC 32.5 32.7 RDW 17.1 H 16.8 H Plt Count 321 284 Seg Neutrophils % 61.4 Lymphocytes % 21.9 Monocytes % 12.6 Eosinophils % 3.4 Basophils % 0.7 Absolute Neutrophils 4.4 Absolute Lymphocytes 1.6 Absolute Monocytes 0.9 Absolute Eosinophils 0.2 Absolute Basophils 0.1 Magnesium 2.2 Impressions: Abdomen/Pelvis CT 05/14/18 00:00 IMPRESSION: Malignant neoplasm involving the hepatic flexure of the colon, as described. Other findings as described. TECHNICAL DOCUMENTATION: Quality ID # 436: Final reports with documentation of one or more dose reduction techniques (e.g., Automated exposure control, adjustment of the mA and/or kV according to patient size, use of iterative reconstruction technique) copyright 2011 [employer]- All Rights Reserved Assessment & Plan - Diagnosis (1) Mass of hepatic flexure of colon Is this a current diagnosis for this admission?: Yes Plan: Likely to be colon cancer, awaiting colonoscopy, ultimately will need hemicolectomy. Given the high likelihood of lymph node metastasis, will need adjuvant chemotherapy. We will do CT of the chest later today to complete staging. (2) Anemia Qualifiers: Anemia type: iron deficiency Iron deficiency anemia type: chronic blood loss Qualified Code(s): D50.0 - Iron deficiency anemia secondary to blood loss (chronic) Is this a current diagnosis for this admission?: Yes Plan: Blood loss secondary to the colon mass, plan for IV iron therapy today. (3) Pain, neoplasm-related Is this a current diagnosis for this admission?: Yes Plan: Pain seems well controlled on oxycodone
[2018-05-16] MEDS ORDERED: FENTANYL CITRATE INJ/PF 100 MCG/2 ML AMPUL ONE (13:54)
[2018-05-16] MEDS ORDERED: NALOXONE HCL INJ/PF 0.4 MG/1 ML SDV ONE (13:54)
[2018-05-16] MEDS ORDERED: DIPHENHYDRAMINE HCL 50 MG/ML VIAL ONE (13:54)
[2018-05-16] MEDS ORDERED: ONDANSETRON HCL INJ/PF 4 MG/2 ML SDV ONE (13:54)
[2018-05-16] MEDS ORDERED: GLUCAGON,HUMAN RECOMB 1 MG INJ ONE (13:55)
[2018-05-16] MEDS ORDERED: FLUMAZENIL INJ 0.5 MG/5 ML VIAL ONE (13:55)
[2018-05-16] MEDS ORDERED: EPINEPHRINE INJ 1 MG/10 ML DISP.SYRIN ONE (13:55)
--- NOTE | 2018-05-16 14:37 | PDOC PROGRESS REPORT ---
Subjective Progress Note for:: 05/16/18 Subjective:: This is a 67-year-old female with diarrhea and melena. She has a mass found at the hepatic flexure on CT scan. She is being prepped for a colonoscopy and EGD today. She reports feeling better. Her diarrhea has slowed significantly. She has no nausea or vomiting. Her abdominal pain has improved as well. She denies chest pain, shortness of breath, fevers, chills, anxiety, dysuria, blurry vision, headache. Reason For Visit: DIARRHEA,GI BLEED Physical Exam Vital Signs: Temp Pulse Resp BP Pulse Ox 97.8 F 70 18 122/44 L 96 05/16/18 11:15 05/16/18 11:15 05/16/18 11:15 05/16/18 11:15 05/16/18 11:15 Intake & Output 05/15/18 05/16/18 05/17/18 06:59 06:59 06:59 Intake Total 2880 2260 Balance 2880 2260 Weight 74.1 kg General appearance: PRESENT: no acute distress Head exam: PRESENT: atraumatic, normocephalic Eye exam: PRESENT: EOMI, PERRLA Mouth exam: PRESENT: moist, neck supple Neck exam: ABSENT: meningismus, tenderness, thyromegaly, tracheal deviation Respiratory exam: PRESENT: clear to auscultation omar, unlabored. ABSENT: chest wall tenderness, tachypnea, wheezes Cardiovascular exam: PRESENT: RRR Pulses: PRESENT: normal radial pulses Vascular exam: PRESENT: normal capillary refill. ABSENT: pallor GI/Abdominal exam: PRESENT: soft. ABSENT: distended, rigid, tenderness Rectal exam: PRESENT: deferred Musculoskeletal exam: ABSENT: deformity Neurological exam: PRESENT: alert, awake, oriented to person, oriented to place, oriented to time, oriented to situation Psychiatric exam: ABSENT: agitated, anxious, depressed Focused psych exam: ABSENT: delusional Skin exam: ABSENT: cyanosis, erythema, jaundice Results Laboratory Results: 05/16/18 04:40 05/15/18 06:05 05/15/18 05/16/18 05/16/18 17:44 04:40 04:40 WBC 7.5 7.2 RBC 4.24 3.81 Hgb 10.6 L D 9.6 L Hct 32.7 L 29.2 L MCV 77 L 77 L MCH 25.1 L 25.1 L MCHC 32.5 32.7 RDW 17.1 H 16.8 H Plt Count 321 284 Seg Neutrophils % 61.4 Lymphocytes % 21.9 Monocytes % 12.6 Eosinophils % 3.4 Basophils % 0.7 Absolute Neutrophils 4.4 Absolute Lymphocytes 1.6 Absolute Monocytes 0.9 Absolute Eosinophils 0.2 Absolute Basophils 0.1 Magnesium 2.2 Impressions: Abdomen/Pelvis CT 05/14/18 00:00 IMPRESSION: Malignant neoplasm involving the hepatic flexure of the colon, as described. Other findings as described. TECHNICAL DOCUMENTATION: Quality ID # 436: Final reports with documentation of one or more dose reduction techniques (e.g., Automated exposure control, adjustment of the mA and/or kV according to patient size, use of iterative reconstruction technique) copyright 2011 [employer]- All Rights Reserved Assessment & Plan - Diagnosis (1) Melena Is this a current diagnosis for this admission?: Yes (2) Abdominal mass, RUQ (right upper quadrant) Is this a current diagnosis for this admission?: Yes (3) Acute on chronic blood loss anemia Is this a current diagnosis for this admission?: Yes (4) Diarrhea Qualifiers: Diarrhea type: unspecified type Qualified Code(s): R19.7 - Diarrhea, unspecified Is this a current diagnosis for this admission?: Yes - Plan Summary Plan Summary: This is a 67-year-old female with melena, diarrhea, and an intra-abdominal mass. The patient is due for a colonoscopy and EGD today. I will await these results before further planning. Patient and her daughter are in agreement with the treatment plan.
[2018-05-16] MEDS: MIDAZOLAM 2 MG/2 ML INJ ONE ×2 (14:49→15:08)
--- NOTE | 2018-05-16 14:56 | PDOC CONSULTATION ---
Consultation Consult Date: 05/15/18 History of Present Illness Admission Date/PCP: 05/14/18 16:40 MAGGI MENENDEZ History of Present Illness: EDIL BENNETT is a 67 year old female patient who was admitted on 05/14/2018 for severe diarrhea, and generalized weakness. I saw in the office on the same day with a 2-week history of watery diarrhea. She was having 2-3 bowel movements an hour both during the day and also at night. There was some abdominal pain and nausea but no vomiting. She had been to the emergency room twice and initially stool test was negative. Her potassium was 3 about 5 days before admission. She had also been having melena stools for about a week. Her hemoglobin dropped from 13 in February two 9.4 on the day of admission On admission her chemistry was normal except for an albumin of 3 C. difficile toxin was negative by PCR, stool was positive for occult blood but negative for WBC. She had a CAT scan of the abdomen on the day of admission showing a 10 x 9 x 8 cm lesion at the hepatic flexure. There are prominent lymph nodes in the surrounding fat. She had been evaluated by Dr. Mcrae Past Medical History Pulmonary Medical History: Reports: Chronic Obstructive Pulmonary Disease (COPD) Endocrine Medical History: Reports: Diabetes Mellitus Type 2 Renal/ Medical History: Reports: Other - Overactive bladder Musculoskeltal Medical History: Reports: Arthritis Past Surgical History Past Surgical History: Reports: Appendectomy, Tonsillectomy, Tubal Ligation, Other - Colonoscopy 1-2 years ago that was reportedly normal. Social History Lives with: Family Smoking Status: Current Every Day Smoker Cigarettes Packs Per Day: 0.5 Number of Years Smokin Frequency of Alcohol Use: None Hx Recreational Drug Use: No Drugs: None Hx Prescription Drug Abuse: No - Advance Directive Resuscitation Status: Full Code Family History Family History: Malignancy - sister colon 55, sister breast 59, sister lymphoma, 1/2 brother lymphoma Parental Family History Reviewed: No Children Family History Reviewed: NA Sibling(s) Family History Reviewed.: NA Medication/Allergy Home Medications: Fexofenadine HCl [Aleshia] 180 mg PO DAILY 05/14/18 Mirabegron [Myrbetriq] 50 mg PO DAILY 05/14/18 Allergies/Adverse Reactions: Penicillins Allergy (Verified 05/14/18 14:46) Review of Systems All systems: reviewed and no additional remarkable complaints except as stated Physical Exam Vital Signs: Temp Pulse Resp BP Pulse Ox 97.8 F 70 18 122/44 L 96 05/16/18 11:15 05/16/18 11:15 05/16/18 11:15 05/16/18 11:15 05/16/18 11:15 Intake & Output 05/15/18 05/16/18 05/17/18 06:59 06:59 06:59 Intake Total 2880 2260 Balance 2880 2260 Weight 74.1 kg Exam: General: Patient is alert and looks well. HEENT: There is no pallor or jaundice. PERRLA. Oropharynx normal Respiratory: No chest deformity. No respiratory distress. Chest wall palpitation was unremarkable. Breath sounds were normal Cardiovascular: Heart sounds 1 and 2 normal with no murmurs. Abdominal: Not distended. Soft and nontender. Liver and spleen not palpable. No ascites demonstrated. Bowel sounds active. Rectal examination was deferred. Extremities: No edema Neurological: Alert and oriented x4. Grossly nonfocal. Normal speech Skin: No significant rash Psychological: Normal affect Results Laboratory Results: 05/16/18 04:40 05/15/18 06:05 05/15/18 05/16/18 05/16/18 17:44 04:40 04:40 WBC 7.5 7.2 RBC 4.24 3.81 Hgb 10.6 L D 9.6 L Hct 32.7 L 29.2 L MCV 77 L 77 L MCH 25.1 L 25.1 L MCHC 32.5 32.7 RDW 17.1 H 16.8 H Plt Count 321 284 Seg Neutrophils % 61.4 Lymphocytes % 21.9 Monocytes % 12.6 Eosinophils % 3.4 Basophils % 0.7 Absolute Neutrophils 4.4 Absolute Lymphocytes 1.6 Absolute Monocytes 0.9 Absolute Eosinophils 0.2 Absolute Basophils 0.1 Magnesium 2.2 Impressions: Abdomen/Pelvis CT 05/14/18 00:00 IMPRESSION: Malignant neoplasm involving the hepatic flexure of the colon, as described. Other findings as described. TECHNICAL DOCUMENTATION: Quality ID # 436: Final reports with documentation of one or more dose reduction techniques (e.g., Automated exposure control, adjustment of the mA and/or kV according to patient size, use of iterative reconstruction technique) copyright 2011 [[employer]]- All Rights Reserved Assessment & Plan - Diagnosis (1) Mass of hepatic flexure of colon Is this a current diagnosis for this admission?: Yes Plan: She has an abnormal mass in the hepatic flexure suggestive of a neoplasm. She will undergo a colonoscopy for further evaluation (2) Diarrhea Qualifiers: Diarrhea type: unspecified type Qualified Code(s): R19.7 - Diarrhea, unspecified Is this a current diagnosis for this admission?: Yes Plan: She has had diarrhea for a couple of weeks with an undetermined etiology though the abnormality on her CAT scan may explain the diarrhea. Her stool is negative for WBC and C. difficile. (3) Melena Is this a current diagnosis for this admission?: Yes Plan: She will have an EGD and colonoscopy (4) Acute on chronic blood loss anemia Is this a current diagnosis for this admission?: Yes
[2018-05-16] MEDS ORDERED: FERUMOXYTOL (NON-ESRD) 510 MG/NS 100 ML IV ONE ×2 (15:00)
--- NOTE | 2018-05-16 15:30 | Operative Report ---
Operative Report DATE OF SURGERY: 05/16/18 Operative Report: Pre-op diagnosis: Abnormal colon on CAT scan and melena Post-op diagnosis: 1. Duodenal cyst vs diverticulum vs ulceration 2. Duodenal ulcer 3. Transverse colon mass Surgery: Upper endoscopy with biopsy and Colonoscopy with biopsy Medications: Versed 3mg, Fentanyl 100mcg IV push Tissue removed: Gastric antral, gastric body, transverse colon mass biopsies Procedure: After informed consent obtained from patient, patient's pharynx was sprayed with Hurricane and conscious sedation was achieved. The upper endoscope was then inserted into the esophagus under direct vision and advanced into the stomach and further into the duodenum. Detailed examination of the duodenum, stomach and the esophagus was then performed. A digital rectal examination was performed and this was unremarkable. The colonoscope was inserted into the rectum and advanced to the cecum. The appendiceal orifice and the terminal ileum were both identified. The mucosa was examined into details as the colonoscope was slowly pulled out of the patient. The endoscope was retroflexed in the rectum. Patient tolerated the procedure well. Findings Esophagus: Normal Stomach: Normal Duodenum: There was ulceration noted at the junction between the first and second part of duodenum at the mouth of a very large cystic lesion. There was a lot of brownish yellowish exudate within the lesion. It measured at least 5 cm. I was able to intubate the rest of the duodenum which appeared normal separate from the cystic lesion. Cecum: Normal Ascending colon: Normal Transverse colon: A very large ulcerated lesion was identified starting from the mid transverse colon extending to the splenic flexure. There was some stenosis but I was able to get through to the rest of the colon. Biopsies were taken from multiple parts of the lesion. Descending colon: Normal Sigmoid colon: Normal Rectum: Normal except for internal hemorrhoids Plan: Await pathology. Schedule upper GI series to further evaluate the duodenal lesion OPERATION: .
[2018-05-16] MEDS: LORATADINE 10 MG TABLET PO SCH (18:02)
[2018-05-16] MEDS: PANTOPRAZOLE SODIUM 40 MG TABLET.DR PO SCH (18:02)
[2018-05-16] MEDS: OXYCODONE HCL IR 5 MG TABLET PO PRN (19:43)
[2018-05-16] MEDS ORDERED: DEXTROSE 40% GEL 15 GM TUBE PO PRN ×2 (21:00)
[2018-05-16] MEDS ORDERED: DEXTROSE 50%-WATER 25 GM/50 ML DISP.SYRIN IV PRN ×2 (21:00)
[2018-05-16] MEDS ORDERED: GLUCAGON,HUMAN RECOMB 1 MG INJ SUBCUT PRN (21:00)
--- NOTE | 2018-05-16 22:27 | RADIOLOGY REPORT (SQ) ---
CT CHEST WITH IV CONTRAST HISTORY: Colon cancer. COMPARISON: None. TECHNIQUE: CT scan of the chest with IV contrast. This exam was performed according to our departmental dose-optimization program, which includes automated exposure control, adjustment of the mA and/or kV according to patient size and/or use of iterative reconstruction technique. FINDINGS: The thyroid gland is normal. There is no mediastinal, hilar, or axillary adenopathy. The heart size is normal without pericardial effusion. No pulmonary mass or consolidation is seen. No pleural effusion or pneumothorax. Please refer to the concomitantly performed CT scan of the abdomen and pelvis for any pertinent findings no suspicious lytic or blastic lesions are identified in the bony thorax. IMPRESSION: No evidence of metastatic disease in the thorax.
[2018-05-17] MEDS: OXYCODONE HCL IR 5 MG TABLET PO PRN (01:43)
[2018-05-17] MEDS: PANTOPRAZOLE SODIUM 40 MG TABLET.DR PO SCH ×2 (05:20→17:24)
[2018-05-17 06:58] LABS: ABSOLUTE EOSINOPHILS # (AUTO) 0.2 10^3/uL (0.0-0.6); ABSOLUTE LYMPHOCYTES (AUTO) 1.4 10^3/uL (0.5-4.7); ABSOLUTE MONOCYTES (AUTO) 0.8 10^3/uL (0.1-1.4); ABSOLUTE NEUT (AUTO) 4.4 10^3/uL (1.7-8.2); BASOPHILS % (AUTO) 0.5 % (0-2); EOSINOPHILS % (AUTO) 2.9 % (0-6); HEMATOCRIT 30.4 % (36.0-47.0); HEMOGLOBIN 9.8 g/dL (12.0-15.5); LYMPHOCYTES % (AUTO) 20.8 % (13-45); MEAN CORPUSCULAR HEMOGLOBIN 24.8 pg (27.0-33.4); MEAN CORPUSCULAR HGB CONC 32.2 g/dL (32.0-36.0); MEAN CORPUSCULAR VOLUME 77 fl (80-97); MONOCYTES % (AUTO) 11.9 % (3-13); PLATELET COUNT 308 10^3/uL (150-450); RED BLOOD COUNT 3.94 10^6/uL (3.72-5.28); RED CELL DISTRIBUTION WIDTH 17.7 % (11.5-14.0); SEGMENTED NEUTROPHILS % (AUTO) 63.9 % (42-78); TOTAL CELLS COUNTED % (AUTO) 100 %; WHITE BLOOD COUNT 6.8 10^3/uL (4.0-10.5)
[2018-05-17] MEDS: CIPROFLOXACIN 400 MG/D5W RTU 400 MG/200 ML RTUPB IV SCH (07:45)
--- NOTE | 2018-05-17 08:28 | PDOC PROGRESS REPORT ---
Subjective Progress Note for:: 05/17/18 Subjective:: Patient is being taken for hemicolectomy, reviewed EGD and colonoscopy findings, as expected there is a large transverse colonic mass, biopsies were taken, but there seems to be a duodenal ulcer/cystic lesion, this needs to be better characterized. She will have an upper GI series done after surgery. Ultimately, GI may recommend endoscopic ultrasound. Reason For Visit: DIARRHEA,GI BLEED Physical Exam Vital Signs: Temp Pulse Resp BP Pulse Ox 98.1 F 61 16 110/42 L 94 05/17/18 07:40 05/17/18 07:40 05/17/18 07:40 05/17/18 07:40 05/17/18 07:40 Intake & Output 05/16/18 05/17/18 05/18/18 06:59 06:59 06:59 Intake Total 2260 894 100 Output Total 4 Balance 2260 890 100 Weight 76.1 kg General appearance: PRESENT: no acute distress, well-developed, well-nourished Head exam: PRESENT: atraumatic, normocephalic Eye exam: PRESENT: conjunctiva pink, EOMI, PERRLA. ABSENT: scleral icterus Ear exam: PRESENT: normal external ear exam Mouth exam: PRESENT: moist, tongue midline Neck exam: ABSENT: carotid bruit, JVD, lymphadenopathy, thyromegaly Respiratory exam: PRESENT: clear to auscultation omar. ABSENT: rales, rhonchi, wheezes Cardiovascular exam: PRESENT: RRR. ABSENT: diastolic murmur, rubs, systolic murmur Pulses: PRESENT: normal dorsalis pedis pul Vascular exam: PRESENT: normal capillary refill GI/Abdominal exam: PRESENT: normal bowel sounds, soft. ABSENT: distended, guarding, mass, organolmegaly, rebound, tenderness Rectal exam: PRESENT: deferred Extremities exam: PRESENT: full ROM. ABSENT: calf tenderness, clubbing, pedal edema Neurological exam: PRESENT: alert, awake, oriented to person, oriented to place, oriented to time, oriented to situation, CN II-XII grossly intact. ABSENT: motor sensory deficit Psychiatric exam: PRESENT: appropriate affect, normal mood. ABSENT: homicidal ideation, suicidal ideation Skin exam: PRESENT: dry, intact, warm. ABSENT: cyanosis, rash Results Laboratory Results: 05/17/18 06:48 05/15/18 06:05 05/17/18 05/17/18 06:48 06:48 WBC 6.8 RBC 3.94 Hgb 9.8 L Hct 30.4 L MCV 77 L MCH 24.8 L MCHC 32.2 RDW 17.7 H Plt Count 308 Seg Neutrophils % 63.9 Lymphocytes % 20.8 Monocytes % 11.9 Eosinophils % 2.9 Basophils % 0.5 Absolute Neutrophils 4.4 Absolute Lymphocytes 1.4 Absolute Monocytes 0.8 Absolute Eosinophils 0.2 Absolute Basophils 0.0 Magnesium 2.5 H 05/14/18 15:59 Stool - Stool - Final 05/14/18 15:59 Stool - Stool Stool Culture - Final NO SALMONELLA, SHIGELLA, CAMPYLOBACTER, OR E.COLI 0157 RECOVERED. NEGATIVE FOR SHIGA TOXINS 1&2. 05/14/18 15:59 Catheterized Urine Urine Culture - Final NO GROWTH 2 DAYS Impressions: Abdomen/Pelvis CT 05/14/18 00:00 IMPRESSION: Malignant neoplasm involving the hepatic flexure of the colon, as described. Other findings as described. TECHNICAL DOCUMENTATION: Quality ID # 436: Final reports with documentation of one or more dose reduction techniques (e.g., Automated exposure control, adjustment of the mA and/or kV according to patient size, use of iterative reconstruction technique) copyright 2011 [employer]- All Rights Reserved Chest CT 05/16/18 13:25 IMPRESSION: No evidence of metastatic disease in the thorax. Assessment & Plan - Diagnosis (1) Mass of hepatic flexure of colon Is this a current diagnosis for this admission?: Yes Plan: Plan for hemicolectomy today, will follow-up results. (2) Anemia Qualifiers: Anemia type: iron deficiency Iron deficiency anemia type: chronic blood loss Qualified Code(s): D50.0 - Iron deficiency anemia secondary to blood loss (chronic) Is this a current diagnosis for this admission?: Yes Plan: Hemoglobin stable, will follow (3) Pain, neoplasm-related Is this a current diagnosis for this admission?: Yes Plan: Continue current pain regimen, patient does not want morphine IV after surgery, we will need to consider Dilaudid if needed
--- NOTE | 2018-05-17 08:38 | PDOC PROGRESS REPORT ---
Subjective Progress Note for:: 05/17/18 Subjective:: Patient is currently doing well patient's diarrhea is markedly improved. Patient's underwent for the endoscopy and colonoscopy with so some transverse colon mass and also duodenal mass As per discussed with the Dr. Gamez order the upper GI series to further evaluate the duodenal mass Patient seen by the oncology and surgery Patient scheduled for the hemicolectomy per surgery Patient is denied any chest pain to than any shortness of the breath Discussed with the patient and the daughter and the bedside Reason For Visit: DIARRHEA,GI BLEED Physical Exam Vital Signs: Temp Pulse Resp BP Pulse Ox 98.1 F 61 16 110/42 L 94 05/17/18 07:40 05/17/18 07:40 05/17/18 07:40 05/17/18 07:40 05/17/18 07:40 Intake & Output 05/16/18 05/17/18 05/18/18 06:59 06:59 06:59 Intake Total 2260 894 100 Output Total 4 Balance 2260 890 100 Weight 76.1 kg General appearance: PRESENT: no acute distress, well-developed, well-nourished Head exam: PRESENT: atraumatic, normocephalic Eye exam: PRESENT: conjunctiva pink, EOMI, PERRLA. ABSENT: scleral icterus Ear exam: PRESENT: normal external ear exam Mouth exam: PRESENT: moist, tongue midline Neck exam: PRESENT: full ROM. ABSENT: carotid bruit, JVD, lymphadenopathy, thyromegaly Respiratory exam: PRESENT: clear to auscultation omar Cardiovascular exam: ABSENT: diastolic murmur, rubs, systolic murmur Vascular exam: PRESENT: normal capillary refill GI/Abdominal exam: PRESENT: normal bowel sounds, soft. ABSENT: distended, guarding, mass, organolmegaly, rebound, tenderness Rectal exam: PRESENT: deferred Musculoskeletal exam: PRESENT: ambulatory Neurological exam: PRESENT: alert, awake, oriented to person, oriented to place, oriented to time, oriented to situation, CN II-XII grossly intact. ABSENT: motor sensory deficit Psychiatric exam: PRESENT: appropriate affect, normal mood. ABSENT: homicidal ideation, suicidal ideation Skin exam: PRESENT: dry, intact, warm. ABSENT: cyanosis, rash Results Laboratory Results: 05/17/18 06:48 05/15/18 06:05 05/17/18 05/17/18 06:48 06:48 WBC 6.8 RBC 3.94 Hgb 9.8 L Hct 30.4 L MCV 77 L MCH 24.8 L MCHC 32.2 RDW 17.7 H Plt Count 308 Seg Neutrophils % 63.9 Lymphocytes % 20.8 Monocytes % 11.9 Eosinophils % 2.9 Basophils % 0.5 Absolute Neutrophils 4.4 Absolute Lymphocytes 1.4 Absolute Monocytes 0.8 Absolute Eosinophils 0.2 Absolute Basophils 0.0 Magnesium 2.5 H 05/14/18 15:59 Stool - Stool - Final 05/14/18 15:59 Stool - Stool Stool Culture - Final NO SALMONELLA, SHIGELLA, CAMPYLOBACTER, OR E.COLI 0157 RECOVERED. NEGATIVE FOR SHIGA TOXINS 1&2. 05/14/18 15:59 Catheterized Urine Urine Culture - Final NO GROWTH 2 DAYS Impressions: Abdomen/Pelvis CT 05/14/18 00:00 IMPRESSION: Malignant neoplasm involving the hepatic flexure of the colon, as described. Other findings as described. TECHNICAL DOCUMENTATION: Quality ID # 436: Final reports with documentation of one or more dose reduction techniques (e.g., Automated exposure control, adjustment of the mA and/or kV according to patient size, use of iterative reconstruction technique) copyright 2011 [employer]- All Rights Reserved Chest CT 05/16/18 13:25 IMPRESSION: No evidence of metastatic disease in the thorax. Assessment & Plan - Diagnosis (1) Stool guaiac positive Is this a current diagnosis for this admission?: Yes Plan: Most likely due to the ulcerative lesion in the colon (2) Abdominal pain Qualifiers: Abdominal location: right upper quadrant Qualified Code(s): R10.11 - Right upper quadrant pain Is this a current diagnosis for this admission?: Yes Plan: Most likely due to the ulcerative mass in the right colonic transverse area (3) Diarrhea Qualifiers: Diarrhea type: unspecified type Qualified Code(s): R19.7 - Diarrhea, unspecified Is this a current diagnosis for this admission?: Yes Plan: Juliette all improving (4) Arthritis Is this a current diagnosis for this admission?: Yes (5) Duodenal mass Is this a current diagnosis for this admission?: Yes Plan: This is scheduled for the upper GI series (6) Abdominal mass, RUQ (right upper quadrant) Is this a current diagnosis for this admission?: Yes Plan: Is going for the right hemicolectomy - Time Time Spent with patient: 15-24 minutes Medications reviewed and adjusted accordingly: Yes Anticipated discharge: Home Within: Other - Plan Summary Plan Summary: Patient is currently doing well Patient is medically very stable Patient is scheduled for the surgery
[2018-05-17] MEDS ORDERED: ONDANSETRON HCL INJ/PF 4 MG/2 ML SDV ONE (08:58)
[2018-05-17] MEDS ORDERED: MIDAZOLAM 2 MG/2 ML INJ ONE (08:58)
[2018-05-17] MEDS ORDERED: DEXAMETHASONE SOD PHOSPHATE INJ 4 MG/1 ML VIAL ONE (08:58)
[2018-05-17] MEDS ORDERED: PROMETHAZINE HCL INJ 25 MG/1 ML VIAL ONE (08:58)
[2018-05-17] MEDS ORDERED: HYDROMORPHONE HCL INJ/PF 2 MG/ML AMPULE ONE (08:58)
[2018-05-17] MEDS ORDERED: ACETAMINOPHEN 1,000 MG/100 ML RTUPB IV ONE (08:58)
[2018-05-17] MEDS ORDERED: FENTANYL CITRATE INJ/PF 100 MCG/2 ML AMPUL ONE (08:58)
[2018-05-17] MEDS ORDERED: PROPOFOL INJ 200 MG/20 ML VIAL IV ONE (08:58)
[2018-05-17] MEDS: IPRATROPIUM/ALBUTEROL 0.5-2.5 MG/3 ML AMPUL NEB SCH ×3 (08:59→20:15)
[2018-05-17] MEDS ORDERED: EPHEDRINE SULFATE INJ 50 MG/1 ML AMPULE ONE (08:59)
[2018-05-17] MEDS: ENOXAPARIN SODIUM INJ 40 MG/0.4 ML DISP.SYRIN SUBCUT SCH (09:03)
[2018-05-17] MEDS ORDERED: BUPIVACAINE HCL 0.25 % INJ/PF (2.5 MG/1 ML) 30 ML VIAL ONE (09:06)
[2018-05-17] MEDS ORDERED: CLINDAMYCIN 600 MG/D5W RTU 600 MG/50 ML RTUPB IV ONE (09:55)
[2018-05-17] MEDS ORDERED: DIPHENHYDRAMINE HCL 50 MG/ML VIAL IV PRN ×2 (09:56→14:25)
[2018-05-17] MEDS ORDERED: FENTANYL CITRATE INJ/PF 100 MCG/2 ML AMPUL IV PRN ×6 (09:56→14:25)
[2018-05-17] MEDS ORDERED: PROMETHAZINE HCL INJ 25 MG/1 ML VIAL IV PRN ×4 (09:56→14:25)
[2018-05-17] MEDS ORDERED: MORPHINE SULFATE 10 MG/ML INJ IV PRN ×2 (09:56→14:25)
[2018-05-17] MEDS ORDERED: MEPERIDINE HCL/PF INJ 25 MG/1 ML DISP.SYRIN IV PRN ×2 (09:56→14:25)
[2018-05-17] MEDS: BUPIVACAINE INJ/PF LIPOSOME/PF 266 MG/20 ML SDV ONE ×2 (10:14→13:30)
[2018-05-17] MEDS: LORATADINE 10 MG TABLET PO SCH (11:02)
[2018-05-17] MEDS ORDERED: NEOSTIGMINE METHYLSULFATE 10 MG/10 ML VIAL ONE (11:26)
[2018-05-17] MEDS ORDERED: GLYCOPYRROLATE 1 MG/5 ML SYRINGE ONE (11:26)
[2018-05-17] MEDS ORDERED: ROCURONIUM BROMIDE INJ 50 MG/5 ML VIAL IV ONE (11:26)
[2018-05-17] MEDS: FENTANYL CITRATE INJ/PF 100 MCG/2 ML AMPUL ONE ×2 (14:32→14:37)
--- NOTE | 2018-05-17 14:33 | Operative Report ---
Nonrecallable Operative Report DATE OF SURGERY: 05/17/18 PREOPERATIVE DIAGNOSIS: 1. 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 2. Blood loss anemia. 3. Smoker POSTOPERATIVE DIAGNOSIS: Same. Tumor invasion to the first portion of the duodenum, and gallbladder OPERATION: 1. Exploratory laparotomy. 2. Extensive pelvic lysis of adhesions. 3. En bloc resection of gallbladder(cholecystectomy), gastric antrum and right colon. 4. Mobilization of hepatic flexure. 5. Stapled jejunal jejunostomy in Mery-en-Y configuration. 6. Handsewn gastro jejunostomy. 7. Stapled ileotransverse colostomy. 8. Mchenry jejunostomy. 9. Drainage of extraluminal duodenal stump. 10. Drainage of gastrojejunostomy anastomosis SURGEON: LACI TERRELL [employer] DEVELOPER: KOBI VACA ANESTHESIA: GA TISSUE REMOVED OR ALTERED: En bloc resection of gallbladder, gastric antrum and first portion of duodenum, right colon and proximal transverse colon COMPLICATIONS: None ESTIMATED BLOOD LOSS: 350 cc INTRAOPERATIVE FINDINGS: See below PROCEDURE: The patient was taken from the floor to the main operating room where general anesthesia was induced. A Ochoa catheter was inserted and clear yellow urine returned. An additional IV access was established to the left wrist. The abdomen was clipped of hair, prepped and draped sterile fashion and instrumentation set up for exploratory laparotomy. Surgical plan and surgical timeout were conducted. The skin was marked above and below the umbilicus for a standard midline incision. The abdomen was opened using a #10 blade. The peritoneal cavity was sharply entered, and we immediately encountered adhesions between the greater omentum, and the anterior abdominal wall extending down into the pelvis. We spent approximately 30 minutes taking down the omentum from the anterior abdominal wall in the pelvis, freeing up the left and right abdominal sheriff. We now established hand-held retractor system, exposing the omentum in the pelvis. The tip of the omentum was stuck to the sigmoid colon, consistent with previous chronic diverticular disease. The omentum was freed up off of the sigmoid colon and distal left colon using the LigaSure device. Once was achieved, we were able to establish Bookwalter retractor system. The midline incision was extended up to the level of the epigastrium. We took down the falciform ligaments between clamps and 0 Vicryl ties. The findings were significant for no evidence of carcinomatosis. The right and left lobes of the liver appeared to be spared from the malignancy. The tumor was a massive tumor in the right upper quadrant encompassing the proximal transverse colon, affixed to the duodenum, distal stomach, and gallbladder. Nasogastric tube was confirmed to be in good position. At this point I called my colleague, Dr. Kobi Vaca to statistical assistant. We began by taking down the gallbladder, fundus first, then mid portion and then towards the neck of the gallbladder. Working in a circumferential fashion the gallbladder came off of the inferior surface of the liver without incident. However the neck from the liz hepatis was rather challenging due to the massive amount of edema and scar formation. At this position however there did not appear direct tumor extension. It was Dr. Vaca's opinion that a distal gastric resection would be the most appropriate operation. In retrospect, yesterday when the patient underwent upper endoscopy by Dr. Gamez, the findings consistent with a duodenal cystic structure WERE more likely an abnormal communication between the duodenum and the transverse colon. For this reason at this point we decided to proceed with transection of the distal stomach. We opened up the gastro colic omentum with electrocautery, then opened up the ulcer sac again using cautery and LigaSure dissection. A suitable site for division of the stomach was chosen medically two thirds along the lesser curve. The stomach was divided using a ELIER 75 stapler. This effectively left us with two thirds of the stomach intact. We used a combination of blunt and electrocautery dissection to free up the tumor mass which again was a pyloric channel region. Blunt dissection and electrocautery enabled the tissues to separate likely along tumor planes. At this point we decided to divide the terminal ileum. The ileocecal was opened up along the white line of Toldt, and in fact the entire right colon up to the hepatic flexure was mobilized again using electrocautery, blunt and LigaSure dissection. The terminal ileum was elevated out of the pelvis by biting a few more attachments and the terminal ileum divided with the single firing of the ELIER stapler. Since we were not performing a apprehensive node resection, we elected to take the right mesial colon as well as the ileocolic pedicles down close to the bowel wall with the LigaSure device. We now went back to the gallbladder and finished dissecting it down to the point of its neck. Anterior inferior surface of the gallbladder was Biobond into the duodenum and the transverse colon. We divided the cystic artery between clips, then freed up the cystic duct. Anatomy area was well-defined and did not appear to be involved with malignancy. The cystic duct was oversewn proximally with a 0 Vicryl suture. We now had the gross specimen including the right colon gallbladder now distal stomach-proximal duodenum all within our hands. We did enter the lumen which was a common channel between the colon and the duodenum and there was some spillage of contents into the operative field. This was suctioned out and limited to the right upper quadrant. Final attachments between the tumor mass, and the anterior surface of the pancreas were taken down mostly by blunt dissection. Small arterial feeders were oversewn with 3-0 PDS suture and managed with ivette. The transverse colon was divided along with the dividing point of the middle colic vessels. The colon was transected with a single firing of the ELIER 55 stapler. The remaining transverse mesocolon was taken down between ligature bites. The specimen was now freed up and sent to pathology in formalin for permanent analysis labeled right colon, duodenum and gastroduodenal remnant. The first order of business was to assess but we just accomplished. The patient remained stable hemodynamically, and bleeding was mild to moderate. She was not on pressors and received no blood transfusion was making urine. We felt that a complete latter day of GI tract was appropriate. We first proceeded with closure of the duodenal stump. This was an extremely irregular tumor tinged margin. We could palpate the ampulla with her index finger which was in its usual location. Again we were looking directly at the anterior surface of the pancreas which is covered with ready and would be scar formation and/or tumor. Also of note the liz hepatis was not involved in the malignant process. Several lymph nodes around the duodenum, as well as the base of the transverse mesentery which were quite suspicious for malignancy. We oversewed the duodenal stump with 2 running 3-0 PDS sutures. The inferior portion of the closure was oversewn with a 2-0 PDS suture. Did not attempt to invert the atrial line as it was too bulky and fixed. We now elected to perform a gastrojejunostomy, Mery-en-Y configuration. A suitable site for division of the jejunum was chosen approximately 100 cm from the ligament of Treitz. The small bowel was divided with the ELIER 55 stapler. We brought up the EFFERENT limb for planned retrocolic anastomosis. There Was no kinking of the and jejunum. We completed a gastrojejunal anastomosis, 2 layered at the outer layer consisting of interrupted 3-0 PDS sutures. The inner layer consisted of a running 2 and 3-0 Vicryl suture. We did have the nasogastric tube advanced through the anastomosis and down the efferent limb maximally 25 cm. There was no tension on the anastomosis, the tissue looked healthy. We now completed a jejunojejunostomy to finish the Mery-en-Y anastomosis. This was completed using a single firing of the ELIER 55 stapler and then a closure of the common enterotomies with a single firing of the VA 60 stapler. Neck to ensure that the lumens were patent, no narrowing and the nasogastric tube was not hung up in the anastomosis. The distance from the gastrojejunostomy to the jejunojejunostomy was approximately 30 cm. We now completed the ileotransverse colon anastomosis. This was done in a functional end-to-end, [id number] configuration using a single firing of the Endo ELIER 55 stapler and closure of the ileotomy and colotomy with a single firing of the TA 60 stapler, all green load. I now packs to the ilio transverse colon anastomosis to the retroperitoneum to reduce the risk of herniation. I also closed the mesentery around the Efferent limb of the gastrojejunostomy to reduce the risk of internal hernia. We now constructed a Kanwal jejunostomy. A suitable site for the jejunum was chosen distal to the jejunojejunostomy staple anastomosis. A 3-0 PDS pursestring was sewn into the antimesenteric side of the jejunum, a jejunotomy made with electrocautery, and now a Rufino drain trend of the Enoc component, with multiple sideholes cut into his distal LAD was advanced into the jejunum for approximately 30 cm. 3-0 PDS suture pursestring secured the 2 to the bowel wall, and approximately 8 additional 3-0 PDS sutures were used to Mchenry the jejunum into the antimesenteric side. The final stitch included a terminal pursestring. Now placed the omentum up against the duodenal stump. 2 large Rufino drains were placed one in the right upper quadrant one in the left upper quadrant trimmed to the appropriate length, with the right upper quadrant drain adjacent to the duodenal stump, and the left upper quadrant drain placed next to the gastrojejunostomy. There is secured to skin with 2-0 Prolene suture We again confirmed adequate placement of the nasogastric tube. Sponge and needle counts are correct. The midline abdomen was closed with 2 double-stranded #1 PDS sutures, skin approximated ivette, 40 cc of dilute Exparel deployed and subcutaneous tissue. Sterile honeycomb dressing and abdominal binder applied. Patient tolerated the procedure well, extubated, and taken recovery in stable condition.
[2018-05-17] MEDS ORDERED: LOPERAMIDE HCL 2 MG CAPSULE PO PRN (14:50)
[2018-05-17] MEDS: ACETAMINOPHEN INJ/PF 1000 MG/100 ML SDV IV SCH ×2 (17:18→23:27)
[2018-05-17] MEDS: CLINDAMYCIN 600 MG/D5W RTU 600 MG/50 ML RTUPB IV SCH (21:40)
[2018-05-17] MEDS: FAMOTIDINE INJ/PF 20 MG/2 ML SDV IV SCH (21:40)
[2018-05-17] MEDS: KETOROLAC TROMETHAMINE INJ/PF 30 MG/1 ML SDV IV PRN (21:53)
[2018-05-17] MEDS ORDERED: FAMOTIDINE INJ/PF 20 MG/2 ML SDV IV SCH (22:00)
[2018-05-17] MEDS: NORMAL SALINE 1000 ML 1,000 ML IV PRN (23:30)
[2018-05-18 05:45] LABS: ABSOLUTE MONOCYTES (AUTO) 0.6 10^3/uL (0.1-1.4); ABSOLUTE NEUT (AUTO) 9.1 10^3/uL (1.7-8.2); BASOPHILS % (AUTO) 0.1 % (0-2); HEMATOCRIT 33.4 % (36.0-47.0); HEMOGLOBIN 10.5 g/dL (12.0-15.5); MEAN CORPUSCULAR HEMOGLOBIN 24.6 pg (27.0-33.4); MEAN CORPUSCULAR HGB CONC 31.5 g/dL (32.0-36.0); MEAN CORPUSCULAR VOLUME 78 fl (80-97); MONOCYTES % (AUTO) 5.9 % (3-13); PLATELET COUNT 376 10^3/uL (150-450); RED BLOOD COUNT 4.27 10^6/uL (3.72-5.28); RED CELL DISTRIBUTION WIDTH 17.9 % (11.5-14.0); TOTAL CELLS COUNTED % (AUTO) 100 %; WHITE BLOOD COUNT 10.7 10^3/uL (4.0-10.5)
[2018-05-18] MEDS: ACETAMINOPHEN INJ/PF 1000 MG/100 ML SDV IV SCH (06:04)
[2018-05-18 06:07] LABS: ANION GAP 5 (5-19); BLOOD UREA NITROGEN 7 mg/dL (7-20); CALCIUM 8.4 mg/dL (8.4-10.2); CARBON DIOXIDE 24 mmol/L (22-30); CHLORIDE 110 mmol/L (98-107); GLUCOSE 111 mg/dL (75-110); POTASSIUM 4.5 mmol/L (3.6-5.0); SODIUM 138.6 mmol/L (137-145)
[2018-05-18] MEDS: KETOROLAC TROMETHAMINE INJ/PF 30 MG/1 ML SDV IV PRN ×2 (06:12→15:23)
[2018-05-18] MEDS: PANTOPRAZOLE SODIUM 40 MG TABLET.DR PO SCH (06:13)
[2018-05-18] MEDS: CLINDAMYCIN 600 MG/D5W RTU 600 MG/50 ML RTUPB IV SCH ×3 (06:31→21:23)
[2018-05-18] MEDS ORDERED: HYDROMORPHONE HCL INJ/PF 2 MG/ML AMPULE IV PRN (08:08)
[2018-05-18] MEDS ORDERED: HYDROMORPHONE HCL INJ/PF 2 MG/ML AMPULE ONE (08:09)
[2018-05-18] MEDS: IPRATROPIUM/ALBUTEROL 0.5-2.5 MG/3 ML AMPUL NEB SCH ×3 (08:10→20:57)
--- NOTE | 2018-05-18 08:37 | PDOC PROGRESS REPORT ---
Subjective Progress Note for:: 05/18/18 Subjective:: Reviewed all results, patient is doing okay this morning. I spoke with Dr. Lim as well as Dr. Parker this morning, unfortunately the colonic tumor appeared attached to gallbladder, stomach as well as duodenum and all these areas were resected. She has jejunostomy tube, she also has drains placed. Currently on n.p.o. Having pain currently. Reason For Visit: DIARRHEA,GI BLEED Physical Exam Vital Signs: Temp Pulse Resp BP Pulse Ox 97.4 F 86 18 118/56 L 98 05/18/18 00:00 05/18/18 00:00 05/18/18 00:00 05/18/18 00:00 05/18/18 00:00 Intake & Output 05/17/18 05/18/18 05/19/18 06:59 06:59 06:59 Intake Total 1894 6950 Output Total 4 3855 Balance 1890 3095 Weight 76.1 kg 76.5 kg General appearance: PRESENT: no acute distress, well-developed, well-nourished Head exam: PRESENT: atraumatic, normocephalic Eye exam: PRESENT: conjunctiva pink, EOMI, PERRLA. ABSENT: scleral icterus Ear exam: PRESENT: normal external ear exam Mouth exam: PRESENT: moist, tongue midline Neck exam: ABSENT: carotid bruit, JVD, lymphadenopathy, thyromegaly Respiratory exam: PRESENT: clear to auscultation omar. ABSENT: rales, rhonchi, wheezes Cardiovascular exam: PRESENT: RRR. ABSENT: diastolic murmur, rubs, systolic murmur Pulses: PRESENT: normal dorsalis pedis pul Vascular exam: PRESENT: normal capillary refill GI/Abdominal exam: PRESENT: normal bowel sounds, soft. ABSENT: distended, guarding, mass, organolmegaly, rebound, tenderness Rectal exam: PRESENT: deferred Extremities exam: PRESENT: full ROM. ABSENT: calf tenderness, clubbing, pedal edema Neurological exam: PRESENT: alert, awake, oriented to person, oriented to place, oriented to time, oriented to situation, CN II-XII grossly intact. ABSENT: motor sensory deficit Psychiatric exam: PRESENT: appropriate affect, normal mood. ABSENT: homicidal ideation, suicidal ideation Skin exam: PRESENT: dry, intact, warm. ABSENT: cyanosis, rash Results Laboratory Results: 05/18/18 05:14 05/18/18 05:14 05/18/18 05/18/18 05:14 05:14 WBC 10.7 H RBC 4.27 Hgb 10.5 L Hct 33.4 L MCV 78 L MCH 24.6 L MCHC 31.5 L RDW 17.9 H Plt Count 376 Seg Neutrophils % 85.0 H Lymphocytes % 9.0 L Monocytes % 5.9 Eosinophils % 0.0 Basophils % 0.1 Absolute Neutrophils 9.1 H Absolute Lymphocytes 1.0 Absolute Monocytes 0.6 Absolute Eosinophils 0.0 Absolute Basophils 0.0 Sodium 138.6 Potassium 4.5 Chloride 110 H Carbon Dioxide 24 Anion Gap 5 BUN 7 Creatinine 0.95 Est GFR ( Amer) > 60 Est GFR (Non-Af Amer) 59 L Glucose 111 H Calcium 8.4 Impressions: Abdomen/Pelvis CT 05/14/18 00:00 IMPRESSION: Malignant neoplasm involving the hepatic flexure of the colon, as described. Other findings as described. TECHNICAL DOCUMENTATION: Quality ID # 436: Final reports with documentation of one or more dose reduction techniques (e.g., Automated exposure control, adjustment of the mA and/or kV according to patient size, use of iterative reconstruction technique) copyright 2011 [employer]- All Rights Reserved Chest CT 05/16/18 13:25 IMPRESSION: No evidence of metastatic disease in the thorax. Assessment & Plan - Diagnosis (1) Mass of hepatic flexure of colon Is this a current diagnosis for this admission?: Yes Plan: Overall original imaging was concerning for a primary colonic lesion but the CEA was normal, certainly still could be a primary colon cancer but may be something like lymphoma. We will see what the results show. At least there was no carcinomatosis or liver involvement. Today we had a long discussion with family about her current status of the season next steps of care, spent about 45 minutes in discussion. (2) Anemia Qualifiers: Anemia type: iron deficiency Iron deficiency anemia type: chronic blood loss Qualified Code(s): D50.0 - Iron deficiency anemia secondary to blood loss (chronic) Is this a current diagnosis for this admission?: Yes Plan: Hemoglobin stable post surgery, will follow closely. IV iron given, will give another dose. (3) Pain, neoplasm-related Is this a current diagnosis for this admission?: Yes Plan: Added Dilaudid low dose, she was hypotensive overnight, we will optimize as her blood pressure allows. - Time Time Spent with patient: 35 or more minutes - Inpatient Certification Based on my medical assessment, after consideration of the patient's comorbid ities, presenting symptoms, or acuity I expect that the services needed warrant INPATIENT care.: Yes I certify that my determination is in accordance with my understanding of Medicare's requirements for reasonable and necessary INPATIENT services [42 CFR 412.3e].: Yes Medical Necessity: Need For IV Fluids, Risk of Complication if Not Cared For in Hospital
[2018-05-18] MEDS ORDERED: FERUMOXYTOL (NON-ESRD) 510 MG/NS 100 ML IV ONE ×2 (10:00)
[2018-05-18] MEDS: FAMOTIDINE INJ/PF 20 MG/2 ML SDV IV SCH ×2 (10:14→21:23)
[2018-05-18] MEDS: PANTOPRAZOLE SODIUM 40 MG VIAL IV SCH ×2 (10:15→21:23)
[2018-05-18] MEDS: LORATADINE 10 MG TABLET PO SCH (10:15)
[2018-05-18] MEDS: ENOXAPARIN SODIUM INJ 40 MG/0.4 ML DISP.SYRIN SUBCUT SCH (10:15)
--- NOTE | 2018-05-18 11:21 | PDOC PROGRESS REPORT ---
Subjective Progress Note for:: 05/18/18 Subjective:: Patient underwent for the extensive colon surgery due to the colonic tumor and duodenal mass Pending pathology Patient is currently doing well Denied any chest pain Denied any shortness of the breath Patient is currently taking the Toradol for the pain Patient was given the low-dose Dilaudid per the oncology Very extensive discussions myself with the patient daughter and the patient and discussed with the surgery and GI and oncology Reason For Visit: DIARRHEA,GI BLEED Physical Exam Vital Signs: Temp Pulse Resp BP Pulse Ox 97.4 F 86 18 118/56 L 98 05/18/18 00:00 05/18/18 00:00 05/18/18 00:00 05/18/18 00:00 05/18/18 00:00 Intake & Output 05/17/18 05/18/18 05/19/18 06:59 06:59 06:59 Intake Total 1894 6950 50 Output Total 4 3855 Balance 1890 3095 50 Weight 76.1 kg 76.5 kg General appearance: PRESENT: no acute distress, well-developed, well-nourished Head exam: PRESENT: atraumatic, normocephalic Eye exam: PRESENT: conjunctiva pink, EOMI, PERRLA. ABSENT: scleral icterus Ear exam: PRESENT: normal external ear exam Mouth exam: PRESENT: moist, tongue midline Neck exam: PRESENT: full ROM. ABSENT: carotid bruit, JVD, lymphadenopathy, thyromegaly Respiratory exam: PRESENT: clear to auscultation omar Cardiovascular exam: PRESENT: RRR. ABSENT: diastolic murmur, rubs, systolic murmur Vascular exam: PRESENT: normal capillary refill GI/Abdominal exam: ABSENT: distended, guarding, mass, organolmegaly, rebound, tenderness Additonal comments: Abdominal dressing is intact j -tube is present Rectal exam: PRESENT: deferred Neurological exam: PRESENT: alert, awake, oriented to person, oriented to place. ABSENT: motor sensory deficit Psychiatric exam: PRESENT: appropriate affect, normal mood. ABSENT: homicidal ideation, suicidal ideation Skin exam: PRESENT: dry, intact, warm. ABSENT: cyanosis, rash Results Laboratory Results: 05/18/18 05:14 05/18/18 05:14 05/18/18 05/18/18 05:14 05:14 WBC 10.7 H RBC 4.27 Hgb 10.5 L Hct 33.4 L MCV 78 L MCH 24.6 L MCHC 31.5 L RDW 17.9 H Plt Count 376 Seg Neutrophils % 85.0 H Lymphocytes % 9.0 L Monocytes % 5.9 Eosinophils % 0.0 Basophils % 0.1 Absolute Neutrophils 9.1 H Absolute Lymphocytes 1.0 Absolute Monocytes 0.6 Absolute Eosinophils 0.0 Absolute Basophils 0.0 Sodium 138.6 Potassium 4.5 Chloride 110 H Carbon Dioxide 24 Anion Gap 5 BUN 7 Creatinine 0.95 Est GFR ( Amer) > 60 Est GFR (Non-Af Amer) 59 L Glucose 111 H Calcium 8.4 Impressions: Abdomen/Pelvis CT 05/14/18 00:00 IMPRESSION: Malignant neoplasm involving the hepatic flexure of the colon, as described. Other findings as described. TECHNICAL DOCUMENTATION: Quality ID # 436: Final reports with documentation of one or more dose reduction techniques (e.g., Automated exposure control, adjustment of the mA and/or kV according to patient size, use of iterative reconstruction technique) copyright 2011 [employer]- All Rights Reserved Chest CT 05/16/18 13:25 IMPRESSION: No evidence of metastatic disease in the thorax. Assessment & Plan - Diagnosis (1) Stool guaiac positive Is this a current diagnosis for this admission?: Yes (2) Abdominal pain Qualifiers: Abdominal location: right upper quadrant Qualified Code(s): R10.11 - Right upper quadrant pain Is this a current diagnosis for this admission?: Yes Plan: Status post exploratory laparotomy postop day #1 (3) Diarrhea Qualifiers: Diarrhea type: unspecified type Qualified Code(s): R19.7 - Diarrhea, unspecified Is this a current diagnosis for this admission?: Yes (4) Arthritis Is this a current diagnosis for this admission?: Yes (5) Duodenal mass Is this a current diagnosis for this admission?: Yes Plan: Is likely related to the colonic mass extends since possible fistula (6) Abdominal mass, RUQ (right upper quadrant) Is this a current diagnosis for this admission?: Yes Plan: This post surgery - Time Time Spent with patient: 15-24 minutes Medications reviewed and adjusted accordingly: Yes Anticipated discharge: SNF Within: Other - Plan Summary Plan Summary: Continues to IV fluid Continues to IV antibiotic Incentive spirometry Continues to nebulizer treatments DVT prophylaxis per the surgery Continues to monitor Waiting for the pathology report Discussed with the daughter and the bedside regarding the patient's current conditions patient is probably needs to go to the rehab facilities
[2018-05-18] MEDS ORDERED: NORMAL SALINE 1000 ML 1,000 ML IV ONE ×2 (12:00→17:30)
--- NOTE | 2018-05-18 12:47 | PDOC PROGRESS REPORT ---
Subjective Progress Note for:: 05/18/18 Subjective:: feels ok was able to dangle at bedside Reason For Visit: DIARRHEA,GI BLEED Physical Exam Vital Signs: Temp Pulse Resp BP Pulse Ox 97.4 F 86 18 118/56 L 98 05/18/18 00:00 05/18/18 00:00 05/18/18 00:00 05/18/18 00:00 05/18/18 00:00 Intake & Output 05/17/18 05/18/18 05/19/18 06:59 06:59 06:59 Intake Total 1894 6950 50 Output Total 4 3855 Balance 1890 3095 50 Weight 76.1 kg 76.5 kg General appearance: PRESENT: no acute distress Head exam: PRESENT: normocephalic Eye exam: PRESENT: EOMI Mouth exam: PRESENT: dry mucosa Neck exam: PRESENT: full ROM Respiratory exam: PRESENT: clear to auscultation omar Cardiovascular exam: PRESENT: RRR Pulses: PRESENT: normal radial pulses, normal femoral pulses, normal dorsalis pedis pul Vascular exam: PRESENT: normal capillary refill GI/Abdominal exam: PRESENT: soft, other - bilous op via both ruslan's ng no output ng irrigated and manipulated with resultant 400cc op Rectal exam: PRESENT: deferred Extremities exam: PRESENT: full ROM Musculoskeletal exam: PRESENT: full ROM Neurological exam: PRESENT: alert, awake, oriented to person, oriented to place, oriented to time, oriented to situation Psychiatric exam: PRESENT: appropriate affect Skin exam: PRESENT: dry Results Laboratory Results: 05/18/18 05:14 05/18/18 05:14 05/18/18 05/18/18 05:14 05:14 WBC 10.7 H RBC 4.27 Hgb 10.5 L Hct 33.4 L MCV 78 L MCH 24.6 L MCHC 31.5 L RDW 17.9 H Plt Count 376 Seg Neutrophils % 85.0 H Lymphocytes % 9.0 L Monocytes % 5.9 Eosinophils % 0.0 Basophils % 0.1 Absolute Neutrophils 9.1 H Absolute Lymphocytes 1.0 Absolute Monocytes 0.6 Absolute Eosinophils 0.0 Absolute Basophils 0.0 Sodium 138.6 Potassium 4.5 Chloride 110 H Carbon Dioxide 24 Anion Gap 5 BUN 7 Creatinine 0.95 Est GFR ( Amer) > 60 Est GFR (Non-Af Amer) 59 L Glucose 111 H Calcium 8.4 Impressions: Abdomen/Pelvis CT 05/14/18 00:00 IMPRESSION: Malignant neoplasm involving the hepatic flexure of the colon, as described. Other findings as described. TECHNICAL DOCUMENTATION: Quality ID # 436: Final reports with documentation of one or more dose reduction techniques (e.g., Automated exposure control, adjustment of the mA and/or kV according to patient size, use of iterative reconstruction technique) copyright 2011 [employer]- All Rights Reserved Chest CT 05/16/18 13:25 IMPRESSION: No evidence of metastatic disease in the thorax. Assessment & Plan - Plan Summary Plan Summary: s/p complicated ruq abscess iwth duodenal perforation of a hepatic flexure colon cancer with resultant abscess cavity now s/p rt hemicolectomy., anatrectomy with partial duodenectomy, graham-y anastomosis, closure of duodenal stump j-tube. pt with min pain appears dehydrated marginal urine op some bile ;in both ruslan's plan -start trickle tube feeds at 10cc/hr iv bolus, mobilization,
[2018-05-18] MEDS: MORPHINE SULFATE 10 MG/ML INJ IV PRN ×2 (13:07→21:24)
--- NOTE | 2018-05-18 13:30 | EKG REPORT ---
SEVERITY:- BORDERLINE ECG - SINUS RHYTHM BORDERLINE INFERIOR Q WAVES : Confirmed by: Erick Banda MD 18-May-2018 13:29:46
[2018-05-18] MEDS: ACETAMINOPHEN 1,000 MG/100 ML RTUPB IV SCH ×2 (14:25→18:23)
[2018-05-18] MEDS: ONDANSETRON HCL INJ/PF 4 MG/2 ML SDV IV PRN (15:29)
[2018-05-18] MEDS ORDERED: ALBUMIN HUMAN 5% INJ 25 GM/500 ML BOTTLE IV ONE (23:30)
[2018-05-18] MEDS ORDERED: ALBUMIN HUMAN 500 ML IV ONE (23:52)
[2018-05-19] MEDS: ACETAMINOPHEN 1,000 MG/100 ML RTUPB IV SCH ×4 (01:23→17:17)
[2018-05-19] MEDS: KETOROLAC TROMETHAMINE INJ/PF 30 MG/1 ML SDV IV PRN (05:35)
[2018-05-19] MEDS: ONDANSETRON HCL INJ/PF 4 MG/2 ML SDV IV PRN (05:35)
[2018-05-19] MEDS: CLINDAMYCIN 600 MG/D5W RTU 600 MG/50 ML RTUPB IV SCH ×3 (06:11→22:25)
[2018-05-19] MEDS: MORPHINE SULFATE 10 MG/ML INJ IV PRN (07:28)
[2018-05-19] MEDS: IPRATROPIUM/ALBUTEROL 0.5-2.5 MG/3 ML AMPUL NEB SCH ×3 (08:08→21:30)
[2018-05-19 08:18] LABS: ANION GAP 9 (5-19); BLOOD UREA NITROGEN 15 mg/dL (7-20); CALCIUM 8.3 mg/dL (8.4-10.2); CARBON DIOXIDE 18 mmol/L (22-30); CHLORIDE 112 mmol/L (98-107); GLUCOSE 73 mg/dL (75-110); POTASSIUM 4.1 mmol/L (3.6-5.0); SODIUM 139.1 mmol/L (137-145)
[2018-05-19 08:24] LABS: ABSOLUTE LYMPHOCYTES (AUTO) 0.4 10^3/uL (0.5-4.7); ABSOLUTE MONOCYTES (AUTO) 0.3 10^3/uL (0.1-1.4); ABSOLUTE NEUT (AUTO) 3.6 10^3/uL (1.7-8.2); BASOPHILS % (AUTO) 0.1 % (0-2); EOSINOPHILS % (AUTO) 1.1 % (0-6); HEMATOCRIT 24.4 % (36.0-47.0); LYMPHOCYTES % (AUTO) 8.3 % (13-45); MEAN CORPUSCULAR HEMOGLOBIN 25.3 pg (27.0-33.4); MEAN CORPUSCULAR HGB CONC 31.6 g/dL (32.0-36.0); MEAN CORPUSCULAR VOLUME 80 fl (80-97); PLATELET COUNT 284 10^3/uL (150-450); RED BLOOD COUNT 3.06 10^6/uL (3.72-5.28); RED CELL DISTRIBUTION WIDTH 18.9 % (11.5-14.0); SEGMENTED NEUTROPHILS % (AUTO) 82.5 % (42-78); TOTAL CELLS COUNTED % (AUTO) 100 %; WHITE BLOOD COUNT 4.4 10^3/uL (4.0-10.5)
[2018-05-19] MEDS ORDERED: HYDROMORPHONE HCL INJ/PF 2 MG/ML AMPULE IV PRN (08:25)
--- NOTE | 2018-05-19 08:34 | PDOC PROGRESS REPORT ---
Subjective Progress Note for:: 05/19/18 Subjective:: Patient is feeling very good Patient is alert awake oriented x3 Patient's denied any chest pain to than any shortness of the breath Abdominal pain is under well control Patient's blood pressure is running lower end with a systolic 80-85 range but patient is fully alert awake and oriented x3 denied any complaints No fever Patient's urine output is low Patient's daughter on the bedside no other concern Patient's biopsy is positive for poorly differentiated adenocarcinoma of the colon Reason For Visit: DIARRHEA,GI BLEED Physical Exam Vital Signs: Temp Pulse Resp BP Pulse Ox 97.3 F 83 16 92/36 L 92 05/19/18 00:00 05/19/18 08:08 05/19/18 08:08 05/19/18 03:00 05/19/18 08:08 Intake & Output 05/18/18 05/19/18 05/20/18 06:59 06:59 06:59 Intake Total 6950 3650 50 Output Total 3855 995 Balance 3095 2655 50 Weight 76.5 kg 76.5 kg General appearance: PRESENT: no acute distress, well-developed, well-nourished Head exam: PRESENT: atraumatic, normocephalic Eye exam: PRESENT: conjunctiva pink, EOMI, PERRLA. ABSENT: scleral icterus Ear exam: PRESENT: normal external ear exam Mouth exam: PRESENT: moist, tongue midline Neck exam: PRESENT: full ROM. ABSENT: carotid bruit, JVD, lymphadenopathy, thyromegaly Respiratory exam: PRESENT: clear to auscultation omar Cardiovascular exam: PRESENT: RRR. ABSENT: diastolic murmur, rubs, systolic murmur Vascular exam: PRESENT: normal capillary refill GI/Abdominal exam: ABSENT: distended, guarding, mass, organolmegaly, rebound, tenderness Additonal comments: Abdominal wound dressing is intact Rectal exam: PRESENT: deferred Extremities exam: ABSENT: pedal edema Neurological exam: PRESENT: alert, awake, oriented to person, oriented to place, oriented to time, oriented to situation, CN II-XII grossly intact. ABSENT: motor sensory deficit Psychiatric exam: PRESENT: appropriate affect, normal mood. ABSENT: homicidal ideation, suicidal ideation Skin exam: PRESENT: dry, intact, warm. ABSENT: cyanosis, rash Results Laboratory Results: 05/19/18 06:39 05/19/18 06:39 Sodium 139.1 Potassium 4.1 Chloride 112 H Carbon Dioxide 18 L Anion Gap 9 BUN 15 Creatinine 1.23 Est GFR ( Amer) 53 L Est GFR (Non-Af Amer) 44 L Glucose 73 L Calcium 8.3 L Impressions: Abdomen/Pelvis CT 05/14/18 00:00 IMPRESSION: Malignant neoplasm involving the hepatic flexure of the colon, as described. Other findings as described. TECHNICAL DOCUMENTATION: Quality ID # 436: Final reports with documentation of one or more dose reduction techniques (e.g., Automated exposure control, adjustment of the mA and/or kV according to patient size, use of iterative reconstruction technique) copyright 2011 [employer]- All Rights Reserved Chest CT 05/16/18 13:25 IMPRESSION: No evidence of metastatic disease in the thorax. Assessment & Plan - Diagnosis (1) Stool guaiac positive Is this a current diagnosis for this admission?: Yes (2) Abdominal pain Qualifiers: Qualified Code(s): R10.11 - Right upper quadrant pain Is this a current diagnosis for this admission?: Yes Plan: Status post exploratory laparotomy postop day #1 (3) Diarrhea Qualifiers: Qualified Code(s): R19.7 - Diarrhea, unspecified Is this a current diagnosis for this admission?: Yes Plan: Juliette all improving (4) Arthritis Is this a current diagnosis for this admission?: Yes (5) Duodenal mass Is this a current diagnosis for this admission?: Yes (6) Abdominal mass, RUQ (right upper quadrant) Is this a current diagnosis for this admission?: Yes Plan: This post surgery - Time Time Spent with patient: 15-24 minutes Medications reviewed and adjusted accordingly: Yes Anticipated discharge: SNF Within: Other - Plan Summary Plan Summary: Patient urine output is low I think patients need a more fluid Discussed with the surgery and suggest to give a 1 L bolus Will increase the IV fluid to 150 cc Continues to watch for any overload We will check the CBC Patient started this tube feeding yesterday by the surgery Discussed with the surgery and oncology
--- NOTE | 2018-05-19 08:35 | PDOC PROGRESS REPORT ---
Subjective Progress Note for:: 05/19/18 Subjective:: no c/o; comfortable, no SOB Reason For Visit: DIARRHEA,GI BLEED Physical Exam Vital Signs: Temp Pulse Resp BP Pulse Ox 97.3 F 83 16 92/36 L 92 05/19/18 00:00 05/19/18 08:08 05/19/18 08:08 05/19/18 03:00 05/19/18 08:08 Intake & Output 05/18/18 05/19/18 05/20/18 06:59 06:59 06:59 Intake Total 6950 3650 50 Output Total 3855 995 Balance 3095 2655 50 Weight 76.5 kg 76.5 kg General appearance: PRESENT: no acute distress Respiratory exam: PRESENT: clear to auscultation omar Cardiovascular exam: PRESENT: RRR GI/Abdominal exam: PRESENT: soft, other - incision, C/D/I; no bowel sounds, J CARLOS on the R bilious; J CARLOS on the L serosanguinous and slightly bilious Results Laboratory Results: 05/19/18 06:39 05/19/18 06:39 Sodium 139.1 Potassium 4.1 Chloride 112 H Carbon Dioxide 18 L Anion Gap 9 BUN 15 Creatinine 1.23 Est GFR ( Amer) 53 L Est GFR (Non-Af Amer) 44 L Glucose 73 L Calcium 8.3 L Impressions: Abdomen/Pelvis CT 05/14/18 00:00 IMPRESSION: Malignant neoplasm involving the hepatic flexure of the colon, as described. Other findings as described. TECHNICAL DOCUMENTATION: Quality ID # 436: Final reports with documentation of one or more dose reduction techniques (e.g., Automated exposure control, adjustment of the mA and/or kV according to patient size, use of iterative reconstruction technique) copyright 2011 [employer]- All Rights Reserved Chest CT 05/16/18 13:25 IMPRESSION: No evidence of metastatic disease in the thorax. Assessment & Plan - Diagnosis (1) Duodenal mass Is this a current diagnosis for this admission?: Yes (2) Mass of hepatic flexure of colon Is this a current diagnosis for this admission?: Yes - Plan Summary Plan Summary: A/ POD #2 after right colectomy and distal gastrectomy with Mery-en-Y reconstruction for infiltrating right colon cancer HD= hypotensive, BP 80/50; HR 83 UO marginal 450 J CARLOS output R elevated 385; J CARLOS Lefft scant (40 mL) Doubled BUN/Creatinine since yesterday; even though they are within normal parameters Hb= 7.7 today Dry oral mucosa P/ OOB, ambulation with PT Give 2 units PRBC over 3 hours each check H/h after 2nd unit Increase tube feeding to 15 mL/hr
[2018-05-19] MEDS ORDERED: NORMAL SALINE 250 ML IV PRN ×2 (08:37)
--- NOTE | 2018-05-19 08:42 | PDOC PROGRESS REPORT ---
Subjective Progress Note for:: 05/19/18 Subjective:: Patient still having a lot of pain, will increase her Dilaudid today. Urine output was low, the blood pressure was low as well. Reason For Visit: DIARRHEA,GI BLEED Physical Exam Vital Signs: Temp Pulse Resp BP Pulse Ox 97.3 F 83 16 92/36 L 92 05/19/18 00:00 05/19/18 08:08 05/19/18 08:08 05/19/18 03:00 05/19/18 08:08 Intake & Output 05/18/18 05/19/18 05/20/18 06:59 06:59 06:59 Intake Total 6950 3650 50 Output Total 3855 995 Balance 3095 2655 50 Weight 76.5 kg 76.5 kg General appearance: PRESENT: no acute distress, well-developed, well-nourished Head exam: PRESENT: atraumatic, normocephalic Eye exam: PRESENT: conjunctiva pink, EOMI, PERRLA. ABSENT: scleral icterus Ear exam: PRESENT: normal external ear exam Mouth exam: PRESENT: moist, tongue midline Neck exam: ABSENT: carotid bruit, JVD, lymphadenopathy, thyromegaly Respiratory exam: PRESENT: clear to auscultation omar. ABSENT: rales, rhonchi, wheezes Cardiovascular exam: PRESENT: RRR. ABSENT: diastolic murmur, rubs, systolic murmur Pulses: PRESENT: normal dorsalis pedis pul Vascular exam: PRESENT: normal capillary refill GI/Abdominal exam: PRESENT: normal bowel sounds, soft. ABSENT: distended, guarding, mass, organolmegaly, rebound, tenderness Rectal exam: PRESENT: deferred Extremities exam: PRESENT: full ROM. ABSENT: calf tenderness, clubbing, pedal edema Neurological exam: PRESENT: alert, awake, oriented to person, oriented to place, oriented to time, oriented to situation, CN II-XII grossly intact. ABSENT: motor sensory deficit Psychiatric exam: PRESENT: appropriate affect, normal mood. ABSENT: homicidal ideation, suicidal ideation Skin exam: PRESENT: dry, intact, warm. ABSENT: cyanosis, rash Results Laboratory Results: 05/19/18 06:39 05/19/18 06:39 05/19/18 05/19/18 06:39 06:39 WBC 4.4 RBC 3.06 L Hct 24.4 L MCV 80 MCH 25.3 L MCHC 31.6 L RDW 18.9 H Plt Count 284 Seg Neutrophils % 82.5 H Lymphocytes % 8.3 L Monocytes % 8.0 Eosinophils % 1.1 Basophils % 0.1 Absolute Neutrophils 3.6 Absolute Lymphocytes 0.4 L Absolute Monocytes 0.3 Absolute Eosinophils 0.0 Absolute Basophils 0.0 Sodium 139.1 Potassium 4.1 Chloride 112 H Carbon Dioxide 18 L Anion Gap 9 BUN 15 Creatinine 1.23 Est GFR ( Amer) 53 L Est GFR (Non-Af Amer) 44 L Glucose 73 L Calcium 8.3 L Impressions: Abdomen/Pelvis CT 05/14/18 00:00 IMPRESSION: Malignant neoplasm involving the hepatic flexure of the colon, as described. Other findings as described. TECHNICAL DOCUMENTATION: Quality ID # 436: Final reports with documentation of one or more dose reduction techniques (e.g., Automated exposure control, adjustment of the mA and/or kV according to patient size, use of iterative reconstruction technique) copyright 2011 [employer]- All Rights Reserved Chest CT 05/16/18 13:25 IMPRESSION: No evidence of metastatic disease in the thorax. Assessment & Plan - Diagnosis (1) Anemia Qualifiers: Anemia type: iron deficiency Iron deficiency anemia type: chronic blood loss Qualified Code(s): D50.0 - Iron deficiency anemia secondary to blood loss (chronic) Is this a current diagnosis for this admission?: Yes Plan: Repeat hemoglobin pending, should be stable I do not see any signs of bleeding a s of yet (2) Pain, neoplasm-related Is this a current diagnosis for this admission?: Yes Plan: Increase Dilaudid today still having considerable pain (3) Ascending colon malignant neoplasm Is this a current diagnosis for this admission?: Yes Plan: Patient does have biopsy-proven colon cancer now, awaiting final pathology results, today I had a long discussion with patient and family about next steps of care, we discussed prognosis as well as consideration of treatment once she is recovered appropriately. We spent about 45 minutes in discussion. - Time Time Spent with patient: 35 or more minutes - Inpatient Certification Based on my medical assessment, after consideration of the patient's comorbidities, presenting symptoms, or acuity I expect that the services needed warrant INPATIENT care.: Yes I certify that my determination is in accordance with my understanding of Medicare's requirements for reasonable and necessary INPATIENT services [42 CFR 412.3e].: Yes Medical Necessity: Need For IV Fluids, Need for Pain Control, Risk of Complication if Not Cared For in Hospital
[2018-05-19 08:45] LABS: HEMOGLOBIN 7.7 g/dL (12.0-15.5)
[2018-05-19] MEDS ORDERED: NORMAL SALINE 1000 ML 1,000 ML IV ONE (08:45)
[2018-05-19] MEDS: LORATADINE 10 MG TABLET PO SCH (10:06)
[2018-05-19] MEDS: PANTOPRAZOLE SODIUM 40 MG VIAL IV SCH ×2 (10:19→22:24)
[2018-05-19] MEDS: FAMOTIDINE INJ/PF 20 MG/2 ML SDV IV SCH ×2 (10:19→22:24)
[2018-05-19] MEDS: ENOXAPARIN SODIUM INJ 40 MG/0.4 ML DISP.SYRIN SUBCUT SCH (10:20)
--- NOTE | 2018-05-19 10:46 | RADIOLOGY REPORT (SQ) ---
EXAM DESCRIPTION: CHEST SINGLE VIEW COMPLETED DATE/TIME: 05/19/2018 10:35 am REASON FOR STUDY: copd COMPARISON: 05/15 02/24 EXAM PARAMETERS: NUMBER OF VIEWS: One view. TECHNIQUE: Single frontal radiographic view of the chest acquired. RADIATION DOSE: NA LIMITATIONS: None. FINDINGS: LUNGS AND PLEURA: No opacities, masses or pneumothorax. No pleural effusion. MEDIASTINUM AND HILAR STRUCTURES: No masses. Contour normal. HEART AND VASCULAR STRUCTURES: Normal heart size. Aortic atherosclerosis. BONES: No acute findings. HARDWARE: Nasoenteric tube tip below diaphragm but excluded by collimation. Side port distal to the GE junction. OTHER: No other significant finding. IMPRESSION: NO ACUTE RADIOGRAPHIC FINDING IN THE CHEST. TECHNICAL DOCUMENTATION: JOB ID: [id number] [employer]- All Rights Reserved Reading location - IP/workstation name: [email or web address]
[2018-05-19] MEDS ORDERED: FUROSEMIDE INJ/PF 20 MG/2 ML SDV IV PRN (11:00)
[2018-05-19] MEDS ORDERED: DIPHENHYDRAMINE HCL 50 MG/ML VIAL IV PRN (13:52)
[2018-05-19] MEDS: NORMAL SALINE 1000 ML 1,000 ML IV PRN (18:47)
[2018-05-19] MEDS: ALBUMIN HUMAN 12.5 GM/50 ML RTUINJ IV SCH ×2 (19:17→21:12)
[2018-05-19] MEDS: CIPROFLOXACIN 400 MG/D5W RTU 400 MG/200 ML RTUPB IV SCH (19:45)
[2018-05-19] MEDS ORDERED: NOREPINEPHRINE BITARTRATE INJ/PF 4 MG/4 ML SDV IV ONE (21:47)
[2018-05-19] MEDS: DEXTROSE 5%-WATER 250 ML with NOREPINEPHRINE BITARTRATE 4 MG IV PRN ×2 (21:55)
[2018-05-19 21:58] LABS: HEMATOCRIT 30.9 % (36.0-47.0); HEMOGLOBIN 9.7 g/dL (12.0-15.5); MEAN CORPUSCULAR HEMOGLOBIN 26.3 pg (27.0-33.4); MEAN CORPUSCULAR HGB CONC 31.4 g/dL (32.0-36.0); PLATELET COUNT 249 10^3/uL (150-450); RED BLOOD COUNT 3.69 10^6/uL (3.72-5.28); RED CELL DISTRIBUTION WIDTH 18.5 % (11.5-14.0); WHITE BLOOD COUNT 8.3 10^3/uL (4.0-10.5)
[2018-05-19 22:03] LABS: MEAN CORPUSCULAR VOLUME 84 fl (80-97)
[2018-05-19] MEDS ORDERED: LIDOCAINE 1% INJ-PF (10 MG/ML) 30 ML SDV ONE (23:00)
[2018-05-19] MEDS ORDERED: VANCOMYCIN HCL INJ 1000 MG VIAL IV SCH (23:45)
--- NOTE | 2018-05-19 23:47 | Operative Report ---
Nonrecallable Operative Report DATE OF SURGERY: 05/19/18 PREOPERATIVE DIAGNOSIS: need IV access for fluids and meds POSTOPERATIVE DIAGNOSIS: same OPERATION: rigth subclavian vein CVL SURGEON: DACIA STEINBERG ANESTHESIA: Local TISSUE REMOVED OR ALTERED: n/a COMPLICATIONS: none ESTIMATED BLOOD LOSS: < 10 mL INTRAOPERATIVE FINDINGS: as above PROCEDURE: see dictation
[2018-05-20] MEDS ORDERED: VANCOMYCIN HCL INJ 1000 MG VIAL IV PRN (00:17)
[2018-05-20] MEDS ORDERED: VANCOMYCIN HCL INJ 500 MG VIAL IV PRN (00:17)
--- NOTE | 2018-05-20 00:19 | RADIOLOGY REPORT (SQ) ---
EXAM DESCRIPTION: XR CHEST 1 VIEW COMPLETED DATE/TME: 05/20/2018 00:00 CLINICAL HISTORY: 67 years, Female, CENTRAL LINE PLACEMENT COMPARISON: Prior chest x-ray from today's date NUMBER OF VIEWS: 1 TECHNIQUE: Portable chest LIMITATIONS: None. FINDINGS: Heart size is normal. The left costophrenic angle was not included on the exam. Enteric tube with the tip extending into the left upper quadrant. Central venous catheter with the tip likely in the cavoatrial junction. No discrete pneumothorax. Subsegmental atelectasis in the right perihilar region. IMPRESSION: Central venous catheter with the tip likely in the cavoatrial junction. Tip of the enteric tube likely in the stomach. copyright 2010 [employer]- All Rights Reserved
[2018-05-20] MEDS ORDERED: VANCOMYCIN HCL 1,500 MG in DEXTROSE 5%-WATER 250 ML IV ONE (00:30)
--- NOTE | 2018-05-20 00:35 | OPERATIVE REPORT E ---
Operative Report NAME: EDIL BENNETT : 1950 AGE: 67Y DATE OF SURGERY: 05/19/2018 ROOM: 433 PREOPERATIVE DIAGNOSIS: NEED FOR IV ACCESS FOR ADMINISTRATION OF MEDICATIONS AND FLUIDS. POSTOPERATIVE DIAGNOSIS: NEED FOR IV ACCESS FOR ADMINISTRATION OF MEDICATIONS AND FLUIDS. OPERATION: Placement of a right subclavian vein triple-lumen catheter. SURGEON: DACIA STEINBERG M.D. ABRASIVE GRADER HELPER: None. BLEEDING: Minimal. COMPLICATIONS: None. ANESTHESIA: Local 20 mL of 1% lidocaine with epinephrine. INDICATION AND FINDINGS: This is a 67-year-old female status post right colectomy with hemigastrectomy with Mery-reji-Y reconstruction for an infiltrating right colon cancer. The cancer was infiltrating through the duodenum and the patient has been transferred to the ICU because of hypotension and change of mental status, and is in need of an intravenous line for administration of medications and fluids. DESCRIPTION OF PROCEDURE: The procedure was done at bedside in the ICU. The patient was placed in supine Trendelenburg position. A towel was placed in between her scapula. The right side of the chest and neck prepped and draped in the usual fashion. The area just below the mid right clavicle was infiltrated with lidocaine. A 16-gauge needle was then used to easily cannulate the right subclavian vein. A guidewire was inserted through the needle into the subclavian vein and superior vena cava. The needle was removed. The insertion point of the needle was enlarged with an #11 blade tissue dilator. This was removed. Over the guidewire, a triple-lumen catheter was inserted up to 16 cm. The guidewire was removed. The catheter was secured to the skin with Silk sutures and flushed with normal saline. Sterile dressings were applied. The patient tolerated the procedure well and a chest x-ray was obtained to confirm good position of the line. DICTATING PHYSICIAN: DACIA STEINBERG M.D. [id number] PHY#: [id number] ID: [id number] JOB#: [id number] ACCT: [id number] cc:DACIA STEINBERG M.D. > MTDD
[2018-05-20] MEDS ORDERED: VANCOMYCIN HCL INJ 1000 MG VIAL ONE (00:39)
[2018-05-20] MEDS: ACETAMINOPHEN 1,000 MG/100 ML RTUPB IV SCH ×3 (00:45→14:27)
[2018-05-20] MEDS ORDERED: NORMAL SALINE INJ/PF 0.9% 10 ML SDV IV PRN (01:58)
[2018-05-20 04:55] LABS: HEMOGLOBIN 10.7 g/dL (12.0-15.5); MEAN CORPUSCULAR HEMOGLOBIN 26.2 pg (27.0-33.4); MEAN CORPUSCULAR HGB CONC 31.5 g/dL (32.0-36.0); MEAN CORPUSCULAR VOLUME 83 fl (80-97); PLATELET COUNT 311 10^3/uL (150-450); RED BLOOD COUNT 4.08 10^6/uL (3.72-5.28); RED CELL DISTRIBUTION WIDTH 18.6 % (11.5-14.0); WHITE BLOOD COUNT 6.1 10^3/uL (4.0-10.5)
[2018-05-20 05:12] LABS: ALANINE AMINOTRANSFERASE 20 U/L (9-52); ALBUMIN 1.9 g/dL (3.5-5.0); ALKALINE PHOSPHATASE 42 U/L (38-126); ASPARTATE AMINO TRANSFERASE 22 U/L (14-36); BILIRUBIN,TOTAL 1.3 mg/dL (0.2-1.3); BLOOD UREA NITROGEN 15 mg/dL (7-20); CALCIUM 8.3 mg/dL (8.4-10.2); CHLORIDE 114 mmol/L (98-107); GLUCOSE 70 mg/dL (75-110); POTASSIUM 4.1 mmol/L (3.6-5.0); SODIUM 139.2 mmol/L (137-145); TOTAL PROTEIN 3.7 g/dL (6.3-8.2)
[2018-05-20 05:17] LABS: ANION GAP 17 (5-19)
[2018-05-20] MEDS: CLINDAMYCIN 600 MG/D5W RTU 600 MG/50 ML RTUPB IV SCH (05:22)
[2018-05-20] MEDS: CIPROFLOXACIN 400 MG/D5W RTU 400 MG/200 ML RTUPB IV SCH (05:22)
[2018-05-20 05:24] LABS: CARBON DIOXIDE 8 mmol/L (22-30)
[2018-05-20] MEDS ORDERED: NOREPINEPHRINE BITARTRATE INJ/PF 4 MG/4 ML SDV IV ONE (05:25)
[2018-05-20 05:32] LABS: ABSOLUTE LYMPHOCYTES# (MANUAL) 0.7 10^3/uL (0.5-4.7); ABSOLUTE NEUTROPHILS# (MANUAL) 4.3 10^3/uL (1.7-8.2); BAND NEUTROPHILS % (MANUAL) 9 % (3-5); BASOPHILS % (MANUAL) 0 % (0-2); EOSINOPHILS % (MANUAL) 0 % (0-6); LYMPHOCYTES % (MANUAL) 12 % (13-45); MONOCYTES % (MANUAL) 17 % (3-13); SEGMENTED NEUTROPHILS % (MAN) 62 % (42-78); TOTAL CELLS COUNTED 100; TOXIC VACUOLATION PRESENT
[2018-05-20 05:33] LABS: ANISOCYTOSIS 2+; BURR CELLS 1+; PLATELET COMMENT ADEQUATE; POIKILOCYTOSIS 1+; TOXIC GRANULATION SLIGHT
[2018-05-20] MEDS: DEXTROSE 5%-WATER 250 ML with NOREPINEPHRINE BITARTRATE 4 MG IV PRN ×6 (05:35→20:28)
[2018-05-20] MEDS ORDERED: SODIUM BICARBONATE 8.4% INJ 50 MEQ/50 ML DISP.SYRIN ONE (05:57)
[2018-05-20] MEDS ORDERED: SODIUM BICARBONATE 8.4% INJ 50 MEQ/50 ML DISP.SYRIN IV ONE (06:15)
[2018-05-20 06:21] LABS: ARTERIAL BLOOD BASE EXCESS -18.2 mmol/L; ARTERIAL BLOOD HCO3 9.1 mmol/L (20-24); ARTERIAL BLOOD O2 SATURATION 95.3 % (94-98); ARTERIAL BLOOD PCO2 26.6 mmHg (35-45); ARTERIAL BLOOD PO2 95.2 mmHg (80-100); ARTERIAL BLOOD TOTAL CO2 9.9 mmol/L (21-25)
[2018-05-20 06:26] LABS: ARTERIAL BLOOD FIO2 6L
[2018-05-20 06:27] LABS: ARTERIAL BLOOD PH 7.15 (7.35-7.45)
[2018-05-20] MEDS: NORMAL SALINE 1000 ML 1,000 ML IV PRN (08:00)
[2018-05-20] MEDS: IPRATROPIUM/ALBUTEROL 0.5-2.5 MG/3 ML AMPUL NEB SCH ×3 (08:22→20:45)
[2018-05-20 08:55] LABS: BLOOD UREA NITROGEN 15 mg/dL (7-20); CALCIUM 8.4 mg/dL (8.4-10.2); CHLORIDE 112 mmol/L (98-107); POTASSIUM 4.2 mmol/L (3.6-5.0); SODIUM 137.8 mmol/L (137-145)
[2018-05-20 09:00] LABS: ANION GAP 16 (5-19)
[2018-05-20 09:08] LABS: CARBON DIOXIDE 10 mmol/L (22-30); GLUCOSE 68 mg/dL (75-110)
[2018-05-20] MEDS ORDERED: MIDAZOLAM HCL 50 MG/100 ML RTUINJ ONE (09:10)
[2018-05-20] MEDS ORDERED: DEXTROSE 5%-WATER 1000 ML 1,000 ML with SODIUM BICARBONATE 100 MEQ IV PRN ×2 (09:12)
[2018-05-20] MEDS ORDERED: PROPOFOL INJ 200 MG/20 ML VIAL IV ONE (09:28)
[2018-05-20] MEDS ORDERED: NORMAL SALINE 1000 ML 1,000 ML IV PRN (09:30)
[2018-05-20] MEDS: MIDAZOLAM HCL 50 MG/100 ML RTUINJ IV PRN ×3 (09:30→20:32)
--- NOTE | 2018-05-20 10:07 | PDOC CONSULTATION ---
Consultation Consult Date: 05/20/18 Attending physician:: CHRISTINE COCHRAN Consult reason:: I was asked to see the patient due to severe metabolic acidosis, oliguria and acute renal failure. History of Present Illness Admission Date/PCP: 05/14/18 16:40 MAGGI MENENDEZ History of Present Illness: EDIL BENNETT is a 67 year old female who has history of COPD, diabetes mellitus type 2 and arthritis who was admitted on May 14, 2018 due to intractable diarrhea for about 2-1/2 weeks. Patient was evaluated by gastroenterology, Dr. Gamez. Patient just moved from [place]. During this hospitalization patient was subsequently diagnosed with a duodenal mass. She underwent exploratory laparotomy with pelvic lysis of adhesions and cholecystectomy on May 17. Pathology of biopsy obtained showed a poorly differentiated adenocarcinoma of the colon. Oncologist Dr. Mcrae was consulted. Yesterday patient became hypotensive to blood pressure as low as 72/42 so she was subsequently transferred here in ICU to start vasopressor. Currently she is on Levoped drip. In terms of the kidney function, she came in with BUN of 13 and creatinine of 0.81. Yesterday she had a BUN of 15 and creatinine of 1.23 with estimated GFR 44 and today she had a BUN of 15, creatinine of 2.07 with EGFR of 24. Her bicarbonate has decreased from 18 yesterday to 8 today. She has elevated lactic acid of 8.2-8.7. She has very low albumin of 1.9. She is oliguric with urine output, if accurately recorded, runs anywhere between 380-450 for the last 48 hours. Currently there is not much urine in her Ochoa bag. Her initial urinalysis during this hospitalization showed negative blood and protein of only 100. Her ABG today showed a pH of 7.15, PCO2 of 26.6 and bicarbonate of 9.1 with oxygen saturation of 95.3 patient did receive Toradol. When I entered the room this morning patient was lethargic and really unable to communicate much. Patient subsequently got intubated. 12:12 PM. Patient finally has trialysis catheter placed by Dr. Robison. We are now currently dialyzing the patient. Patient is tolerating dialysis so far and the trialysis catheter is working. Patient is being monitored continuously throughout dialysis treatment by our dialysis nurse. Past Medical History Past Medical History: Medical history obtained from records as the patient is noncommunicative and subsequently intubated. Pulmonary Medical History: Reports: Chronic Obstructive Pulmonary Disease (COPD) Endocrine Medical History: Reports: Diabetes Mellitus Type 2 Renal/ Medical History: Reports: Other - Overactive bladder Musculoskeltal Medical History: Reports: Arthritis Past Surgical History Past Surgical History: Reports: Appendectomy, Tonsillectomy, Tubal Ligation, Other - Colonoscopy 1-2 years ago that was reportedly normal. Social History Information Source: [facility] Records Lives with: Family Smoking Status: Current Every Day Smoker Cigarettes Packs Per Day: 0.5 Number of Years Smokin Frequency of Alcohol Use: None Hx Recreational Drug Use: No Drugs: None Hx Prescription Drug Abuse: No - Advance Directive Resuscitation Status: Full Code Family History Family History: Reviewed & Not Pertinent Parental Family History Reviewed: Yes Children Family History Reviewed: Yes Sibling(s) Family History Reviewed.: Yes Medication/Allergy Home Medications: Fexofenadine HCl [Aleshia] 180 mg PO DAILY 05/14/18 Mirabegron [Myrbetriq] 50 mg PO DAILY 05/14/18 Allergies/Adverse Reactions: Penicillins Allergy (Verified 05/14/18 14:46) metronidazole [From Flagyl] Adverse Reaction (Verified 05/17/18 21:43) Review of Systems ROS unobtainable: Due to endotracheal tube, Due to mental status Physical Exam Vital Signs: Temp Pulse Resp BP Pulse Ox 98.2 F 112 H 23 H 100/48 L 94 05/20/18 08:00 05/20/18 08:00 05/20/18 08:00 05/20/18 08:00 05/20/18 08:00 Intake & Output 05/19/18 05/20/18 05/21/18 06:59 06:59 06:59 Intake Total 3650 2383 Output Total 995 500 0 Balance 2655 1883 0 Weight 76.5 kg 87.8 kg Vitals on dialysis: Blood pressure 124/59, heart rate of 108, oxygen saturation 100% and respiratory rate of 20, blood flow rate of 250 mL/min and dialysate flow rate of 500 mL/min Exam: General appearance: [Patient was lethargic, noncommunicative and subsequently intubated] Head exam: [PRESENT: atraumatic, normocephalic] Eye exam: [PRESENT: Conjunctiva pale, EOMI, PERRLA. ABSENT: conjunctival injection, scleral icterus] Mouth exam: PRESENT: moist, neck supple, tongue midline Neck exam: PRESENT: full ROM. ABSENT: carotid bruit, JVD, lymphadenopathy, thyromegaly Respiratory exam: PRESENT: clear to auscultation bilaterally. ABSENT: rales, rhonchi, stridor, wheezes Cardiovascular exam: PRESENT: Irregularly irregular, +S1, +S2. ABSENT: systolic murmur Pulses: PRESENT: normal radial pulses, normal dorsalis pedis pulses GI/Abdominal exam: PRESENT: normal bowel sounds, soft. ABSENT: guarding, mass, tenderness Rectal exam: Deferred Extremities exam: PRESENT: full ROM. ABSENT: calf tenderness, pedal edema Musculoskeletal: PRESENT: full ROM. ABSENT: deformity Neurological exam: PRESENT: Lethargic and noncommunicative ABSENT: motor sensory deficit Psychiatric exam: PRESENT: Flat affect prior to intubation Skin exam: PRESENT: intact, dry, warm. ABSENT: rash Results Laboratory Results: 05/20/18 04:45 05/20/18 08:20 05/19/18 05/19/18 05/19/18 10:19 18:05 18:05 WBC RBC Hgb Hct MCV MCH MCHC RDW Plt Count Seg Neutrophils % Lymphocytes % Monocytes % Eosinophils % Basophils % Absolute Neutrophils Absolute Lymphocytes Absolute Monocytes Absolute Eosinophils Absolute Basophils Carbonic Acid HCO3/H2CO3 Ratio ABG pH ABG pCO2 ABG pO2 ABG HCO3 ABG O2 Saturation ABG Base Excess FiO2 Sodium Potassium Chloride Carbon Dioxide Anion Gap BUN Creatinine Est GFR ( Amer) Est GFR (Non-Af Amer) Glucose Lactic Acid 8.7 H Calcium Magnesium Total Bilirubin AST ALT Alkaline Phosphatase Total Protein Albumin 1.7 L Blood Type A POSITIVE Antibody Screen NEGATIVE 05/19/18 05/20/18 05/20/18 21:30 00:46 04:45 WBC 8.3 6.1 RBC 3.69 L 4.08 Hgb 9.7 L 10.7 L Hct 30.9 L 34.0 L MCV 84 D 83 MCH 26.3 L 26.2 L MCHC 31.4 L 31.5 L RDW 18.5 H 18.6 H Plt Count 249 311 Seg Neutrophils % Not Reportable Lymphocytes % Not Reportable Monocytes % Not Reportable Eosinophils % Not Reportable Basophils % Not Reportable Absolute Neutrophils Not Reportable Absolute Lymphocytes Not Reportable Absolute Monocytes Not Reportable Absolute Eosinophils Not Reportable Absolute Basophils Not Reportable Carbonic Acid HCO3/H2CO3 Ratio ABG pH ABG pCO2 ABG pO2 ABG HCO3 ABG O2 Saturation ABG Base Excess FiO2 Sodium Potassium Chloride Carbon Dioxide Anion Gap BUN Creatinine Est GFR ( Amer) Est GFR (Non-Af Amer) Glucose Lactic Acid 8.2 H Calcium Magnesium Total Bilirubin AST ALT Alkaline Phosphatase Total Protein Albumin Blood Type Antibody Screen 05/20/18 05/20/18 05/20/18 04:45 06:10 08:20 WBC RBC Hgb Hct MCV MCH MCHC RDW Plt Count Seg Neutrophils % Lymphocytes % Monocytes % Eosinophils % Basophils % Absolute Neutrophils Absolute Lymphocytes Absolute Monocytes Absolute Eosinophils Absolute Basophils Carbonic Acid 0.80 L HCO3/H2CO3 Ratio 11:1 ABG pH 7.15 L* ABG pCO2 26.6 L ABG pO2 95.2 ABG HCO3 9.1 L ABG O2 Saturation 95.3 ABG Base Excess -18.2 FiO2 6L Sodium 139.2 137.8 Potassium 4.1 4.2 Chloride 114 H 112 H Carbon Dioxide 8 L* D 10 L* Anion Gap 17 16 BUN 15 15 Creatinine 2.07 H 1.99 H Est GFR ( Amer) 29 L 30 L Est GFR (Non-Af Amer) 24 L 25 L Glucose 70 L 68 L Lactic Acid Calcium 8.3 L 8.4 Magnesium 1.6 Total Bilirubin 1.3 AST 22 ALT 20 Alkaline Phosphatase 42 Total Protein 3.7 L Albumin 1.9 L Blood Type Antibody Screen 05/14/18 18:30 Blood Blood Culture - Final NO GROWTH IN 5 DAYS 05/14/18 17:15 Blood Blood Culture - Final NO GROWTH IN 5 DAYS Impressions: Abdomen/Pelvis CT 05/14/18 00:00 IMPRESSION: Malignant neoplasm involving the hepatic flexure of the colon, as described. Other findings as described. TECHNICAL DOCUMENTATION: Quality ID # 436: Final reports with documentation of one or more dose reduction techniques (e.g., Automated exposure control, adjustment of the mA and/or kV according to patient size, use of iterative reconstruction technique) copyright 2011 [employer]- All Rights Reserved Chest CT 05/16/18 13:25 IMPRESSION: No evidence of metastatic disease in the thorax. Chest X-Ray 05/20/18 00:00 IMPRESSION: Central venous catheter with the tip likely in the cavoatrial junction. Tip of the enteric tube likely in the stomach. copyright 2010 [employer]- All Rights Reserved Assessment & Plan - Diagnosis (1) Septic shock Is this a current diagnosis for this admission?: Yes Plan: Patient has been hypotensive with elevated lactic acid. It could be likely due to intra-abdominal sepsis but exact organisms currently not identified. Currently the patient requires pressor. Patient was given vancomycin last night and will be started on Primaxin. (2) Acute kidney injury Is this a current diagnosis for this admission?: Yes Plan: Currently oliguric due to acute tubular necrosis as a result of septic shock and hypotension. Due to severity of the patient's acidosis the patient would require acute renal replacement therapy. I spoke to the patient's daughter and explained the procedure, the benefits and the risk of doing acute hemodialysis and she agreed to proceed. I immediately consulted her vascular surgeon to do a trialysis catheter. We need to avoid further nephrotoxic medications and adjust antibiotics according to patient's kidney function. We will do dialysis today for 2.5 hours, using the patient's trialysis catheter, with 2 potassium bath, blood flow rate of 250 mL per minute, dialysate flow rate of 500 mL per minute, ultrafiltration none, no heparin and no Procrit. Dialysis prescription and plan discussed with her dialysis nurse. Patient will be monitored throughout dialysis treatment today. (3) Acute tubular necrosis Is this a current diagnosis for this admission?: Yes (4) Metabolic acidosis Is this a current diagnosis for this admission?: Yes Plan: Due to AK I and septic shock. Patient would require acute renal replacement therapy today. (5) Iron deficiency anemia Is this a current diagnosis for this admission?: Yes Plan: Patient was given 2 doses of IV Feraheme on May 17 and . (6) Ascending colon malignant neoplasm Is this a current diagnosis for this admission?: Yes Plan: Status post exploratory laparotomy in May 17. Oncologist, Dr. Mcrae following the patient. (7) Acute respiratory failure Is this a current diagnosis for this admission?: Yes Plan: Patient just got intubated. Embedded Processor, Dr. Malcolm seeing the patient. (8) Hypoalbuminemia Is this a current diagnosis for this admission?: Yes Plan: Patient has been given IV albumin. - Notes Notes: Thank you very much for this consultation. We will follow the patient with you. Prognosis is poor. - Time Time Spent: Greater than 70 Minutes
--- NOTE | 2018-05-20 10:39 | RADIOLOGY REPORT (SQ) ---
EXAM DESCRIPTION: CHEST SINGLE VIEW COMPLETED DATE/TIME: 05/20/2018 10:22 am REASON FOR STUDY: Placement of E tube COMPARISON: 05/19/2018 NUMBER OF VIEWS: One view. TECHNIQUE: Single frontal radiographic image of the chest acquired. LIMITATIONS: Airspace disease in the left upper lobe. No pneumothorax. FINDINGS: LUNGS AND PLEURA: Airspace disease in the left upper lobe. No pneumothorax. MEDIASTINUM AND HEART: Stable heart size and mediastinal structures. SUPPORT DEVICES: Unchanged position of nasogastric tube and right-sided central line. Endotracheal t ube tip between thoracic inlet and ross. BONY STRUCTURES: No acute findings. HARDWARE: None. OTHER: No other significant finding. IMPRESSION: Good position of support apparatus. No pneumothorax. Reading location - IP/workstation name: [email or web address]
[2018-05-20] MEDS ORDERED: LIDOCAINE 1% INJ-PF (10 MG/ML) 30 ML SDV ONE (10:59)
[2018-05-20 11:46] LABS: ARTERIAL BLOOD BASE EXCESS -19.5 mmol/L; ARTERIAL BLOOD H2CO3 0.89 mmol/L (1.05-1.35); ARTERIAL BLOOD O2 SATURATION 98.6 % (94-98); ARTERIAL BLOOD PCO2 29.7 mmHg (35-45); ARTERIAL BLOOD PO2 169.3 mmHg (80-100); ARTERIAL BLOOD TOTAL CO2 9.9 mmol/L (21-25)
[2018-05-20 11:50] LABS: ARTERIAL BLOOD FIO2 100%
--- NOTE | 2018-05-20 12:00 | PDOC PROGRESS REPORT ---
Subjective Progress Note for:: 05/20/18 Subjective:: sleepy, poorly arousable, confused x 3; family (daughter at bedside) aware of the patient condition Reason For Visit: DIARRHEA,GI BLEED Physical Exam Vital Signs: Temp Pulse Resp BP Pulse Ox 98.2 F 121 H 24 H 107/60 100 05/20/18 08:00 05/20/18 10:00 05/20/18 10:00 05/20/18 10:00 05/20/18 10:00 Intake & Output 05/19/18 05/20/18 05/21/18 06:59 06:59 06:59 Intake Total 3650 2383 Output Total 995 500 0 Balance 2655 1883 0 Weight 76.5 kg 87.8 kg General appearance: PRESENT: mild distress, other - confused x 3, obtunded but arousale Respiratory exam: PRESENT: chest wall tenderness, tachypnea Cardiovascular exam: PRESENT: RRR, tachycardia GI/Abdominal exam: PRESENT: soft, other - R J CARLOS drain bilious; L J CARLOS drain tinted with bile Results Laboratory Results: 05/20/18 04:45 05/20/18 08:20 05/19/18 05/19/18 05/19/18 10:19 18:05 18:05 WBC RBC Hgb Hct MCV MCH MCHC RDW Plt Count Seg Neutrophils % Lymphocytes % Monocytes % Eosinophils % Basophils % Absolute Neutrophils Absolute Lymphocytes Absolute Monocytes Absolute Eosinophils Absolute Basophils Carbonic Acid HCO3/H2CO3 Ratio ABG pH ABG pCO2 ABG pO2 ABG HCO3 ABG O2 Saturation ABG Base Excess FiO2 Sodium Potassium Chloride Carbon Dioxide Anion Gap BUN Creatinine Est GFR ( Amer) Est GFR (Non-Af Amer) Glucose Lactic Acid 8.7 H Calcium Magnesium Total Bilirubin AST ALT Alkaline Phosphatase Total Protein Albumin 1.7 L Blood Type A POSITIVE Antibody Screen NEGATIVE 05/19/18 05/20/18 05/20/18 21:30 00:46 04:45 WBC 8.3 6.1 RBC 3.69 L 4.08 Hgb 9.7 L 10.7 L Hct 30.9 L 34.0 L MCV 84 D 83 MCH 26.3 L 26.2 L MCHC 31.4 L 31.5 L RDW 18.5 H 18.6 H Plt Count 249 311 Seg Neutrophils % Not Reportable Lymphocytes % Not Reportable Monocytes % Not Reportable Eosinophils % Not Reportable Basophils % Not Reportable Absolute Neutrophils Not Reportable Absolute Lymphocytes Not Reportable Absolute Monocytes Not Reportable Absolute Eosinophils Not Reportable Absolute Basophils Not Reportable Carbonic Acid HCO3/H2CO3 Ratio ABG pH ABG pCO2 ABG pO2 ABG HCO3 ABG O2 Saturation ABG Base Excess FiO2 Sodium Potassium Chloride Carbon Dioxide Anion Gap BUN Creatinine Est GFR ( Amer) Est GFR (Non-Af Amer) Glucose Lactic Acid 8.2 H Calcium Magnesium Total Bilirubin AST ALT Alkaline Phosphatase Total Protein Albumin Blood Type Antibody Screen 05/20/18 05/20/18 05/20/18 04:45 06:10 08:20 WBC RBC Hgb Hct MCV MCH MCHC RDW Plt Count Seg Neutrophils % Lymphocytes % Monocytes % Eosinophils % Basophils % Absolute Neutrophils Absolute Lymphocytes Absolute Monocytes Absolute Eosinophils Absolute Basophils Carbonic Acid 0.80 L HCO3/H2CO3 Ratio 11:1 ABG pH 7.15 L* ABG pCO2 26.6 L ABG pO2 95.2 ABG HCO3 9.1 L ABG O2 Saturation 95.3 ABG Base Excess -18.2 FiO2 6L Sodium 139.2 137.8 Potassium 4.1 4.2 Chloride 114 H 112 H Carbon Dioxide 8 L* D 10 L* Anion Gap 17 16 BUN 15 15 Creatinine 2.07 H 1.99 H Est GFR ( Amer) 29 L 30 L Est GFR (Non-Af Amer) 24 L 25 L Glucose 70 L 68 L Lactic Acid Calcium 8.3 L 8.4 Magnesium 1.6 Total Bilirubin 1.3 AST 22 ALT 20 Alkaline Phosphatase 42 Total Protein 3.7 L Albumin 1.9 L Blood Type Antibody Screen 05/14/18 18:30 Blood Blood Culture - Final NO GROWTH IN 5 DAYS 05/14/18 17:15 Blood Blood Culture - Final NO GROWTH IN 5 DAYS Impressions: Abdomen/Pelvis CT 05/14/18 00:00 IMPRESSION: Malignant neoplasm involving the hepatic flexure of the colon, as described. Other findings as described. TECHNICAL DOCUMENTATION: Quality ID # 436: Final reports with documentation of one or more dose reduction techniques (e.g., Automated exposure control, adjustment of the mA and/or kV according to patient size, use of iterative reconstruction technique) copyright 2011 [employer]- All Rights Reserved Chest CT 05/16/18 13:25 IMPRESSION: No evidence of metastatic disease in the thorax. Chest X-Ray 05/20/18 09:20 IMPRESSION: Good position of support apparatus. No pneumothorax. Assessment & Plan - Diagnosis (1) Duodenal mass Is this a current diagnosis for this admission?: Yes (2) Mass of hepatic flexure of colon Is this a current diagnosis for this admission?: Yes (3) Septic shock Is this a current diagnosis for this admission?: Yes - Plan Summary Plan Summary: A/ POD#3 after right colectomy, hemigastrectomy with Mery-en-Y reconstruction patient conditions have deteriorated during the past 24 hrs with hyp[otensikon tachicardia, tachipnea and change of mental status Oliguria thie AM bilious drainage from R J CARLOS as [er leaking duodenal stump ABG's with severe metabolic acidosis (pH 7.1) P/ respiratory: patient intubated as per Gang Bore Operator CV: on Levophed drip with improved BP (130/70) Renal: on HD via Left groin catheter ID: antibiotics changed to Primaxin GI; increased tube feeding to 20mL/hr General: patient conditions dismal, with guarded prognosis. Daughter aware following long discussion with all consultants and myself Will continue support via ventilatory support, IVF, Abx, HD, tube feeding
--- NOTE | 2018-05-20 12:02 | Operative Report ---
Nonrecallable Operative Report DATE OF SURGERY: 05/20/18 PREOPERATIVE DIAGNOSIS: need HD catheter POSTOPERATIVE DIAGNOSIS: same OPERATION: left CFV HD catheter SURGEON: DACIA STEINBERG ANESTHESIA: Local TISSUE REMOVED OR ALTERED: n/a COMPLICATIONS: none ESTIMATED BLOOD LOSS: < 10 mL INTRAOPERATIVE FINDINGS: as above PROCEDURE: see dictation
--- NOTE | 2018-05-20 12:04 | OPERATIVE REPORT E ---
Operative Report NAME: EDIL BENNETT : 1950 AGE: 67Y DATE OF SURGERY: 05/20/2018 ROOM: 606 PREOPERATIVE DIAGNOSES: 1. Anuria. 2. Colon cancer. 3. Sepsis. 4. Need for dialysis. POSTOPERATIVE DIAGNOSES: 1. Anuria. 2. Colon cancer. 3. Sepsis. 4. Need for dialysis. OPERATION: Placement of left common femoral vein dialysis catheter. SURGEON: DACIA STEINBERG M.D. DIRECTOR OF PHYSICAL THERAPY: None. BLEEDING: Minimal, less than 10 mL. COMPLICATIONS: None. ANESTHESIA: Local 20 mL of 1% lidocaine. INDICATION AND FINDINGS: This is a 67-year-old lady postop day #3 following right hemicolectomy for colon cancer infiltrating the duodenum with distal gastrectomy and graham-en-Y reconstruction who postoperatively has developed persistent hypotension followed by change in mental status. The patient was transferred to the ICU yesterday evening. During the overnight stay, the patient became progressively more oliguric until this morning when she was anuric. The cupola melter helper has been consulted and I have been requested to insert a femoral dialysis catheter for dialysis. The procedure risks, benefits, and complications were explained to the family. They understand and decided to proceed. DESCRIPTION OF PROCEDURE: The procedure was done at the bedside in the ICU. The patient's left groin was shaved, prepped and draped in the usual fashion. The femoral artery was repeated. A 16-gauge needle was then used to easily decannulate the left common femoral vein just medial to the artery. A guidewire was inserted through the needle into the femoral vein and the iliac vein. The needle was removed. The insertion point of the guidewire was enlarged with a #11 blade and tissue dilators, which was removed and the hemodialysis catheter was inserted over the guidewire into the common femoral vein and iliac vein. The guidewire was removed without difficulty. Each part of the hemodialysis catheter was aspirated and flushed with normal saline until clear without difficulty. The catheter was secured to the skin with nylon sutures and sterile dressings applied. The patient tolerated the procedure well. DICTATING PHYSICIAN: DACIA STEINBERG M.D. [id number] PHY#: [id number] ID: [id number] JOB#: [id number] ACCT: [id number] cc:DACIA STEINBERG M.D. > HELADIO
--- NOTE | 2018-05-20 12:16 | PDOC PROGRESS REPORT ---
Subjective Progress Note for:: 05/20/18 Subjective:: Over last 12 hours pt worsened, became more lethargic, confused, BP low, U/O poor, transferred to ICU, given fluid boluses, central line and placed on levophed. Nephrology has seen pt and is planning dialysis cath placement and initiation of dialysis Reason For Visit: DIARRHEA,GI BLEED Physical Exam Vital Signs: Temp Pulse Resp BP Pulse Ox 98.2 F 121 H 24 H 107/60 100 05/20/18 08:00 05/20/18 10:00 05/20/18 10:00 05/20/18 10:00 05/20/18 10:00 Intake & Output 05/19/18 05/20/18 05/21/18 06:59 06:59 06:59 Intake Total 3650 2383 Output Total 995 500 0 Balance 2655 1883 0 Weight 76.5 kg 87.8 kg General appearance: PRESENT: no acute distress Mouth exam: PRESENT: dry mucosa Respiratory exam: PRESENT: clear to auscultation omar. ABSENT: rales, rhonchi, w heezes Cardiovascular exam: PRESENT: RRR. ABSENT: diastolic murmur, rubs, systolic murmur GI/Abdominal exam: PRESENT: normal bowel sounds, soft. ABSENT: distended, guarding, mass, organolmegaly, rebound, tenderness Rectal exam: PRESENT: deferred Psychiatric exam: PRESENT: other - lethargic Results Laboratory Results: 05/20/18 04:45 05/20/18 08:20 05/19/18 05/19/18 05/19/18 10:19 18:05 18:05 WBC RBC Hgb Hct MCV MCH MCHC RDW Plt Count Seg Neutrophils % Lymphocytes % Monocytes % Eosinophils % Basophils % Absolute Neutrophils Absolute Lymphocytes Absolute Monocytes Absolute Eosinophils Absolute Basophils Carbonic Acid HCO3/H2CO3 Ratio ABG pH ABG pCO2 ABG pO2 ABG HCO3 ABG O2 Saturation ABG Base Excess FiO2 Sodium Potassium Chloride Carbon Dioxide Anion Gap BUN Creatinine Est GFR ( Amer) Est GFR (Non-Af Amer) Glucose Lactic Acid 8.7 H Calcium Magnesium Total Bilirubin AST ALT Alkaline Phosphatase Total Protein Albumin 1.7 L Blood Type A POSITIVE Antibody Screen NEGATIVE 05/19/18 05/20/18 05/20/18 21:30 00:46 04:45 WBC 8.3 6.1 RBC 3.69 L 4.08 Hgb 9.7 L 10.7 L Hct 30.9 L 34.0 L MCV 84 D 83 MCH 26.3 L 26.2 L MCHC 31.4 L 31.5 L RDW 18.5 H 18.6 H Plt Count 249 311 Seg Neutrophils % Not Reportable Lymphocytes % Not Reportable Monocytes % Not Reportable Eosinophils % Not Reportable Basophils % Not Reportable Absolute Neutrophils Not Reportable Absolute Lymphocytes Not Reportable Absolute Monocytes Not Reportable Absolute Eosinophils Not Reportable Absolute Basophils Not Reportable Carbonic Acid HCO3/H2CO3 Ratio ABG pH ABG pCO2 ABG pO2 ABG HCO3 ABG O2 Saturation ABG Base Excess FiO2 Sodium Potassium Chloride Carbon Dioxide Anion Gap BUN Creatinine Est GFR ( Amer) Est GFR (Non-Af Amer) Glucose Lactic Acid 8.2 H Calcium Magnesium Total Bilirubin AST ALT Alkaline Phosphatase Total Protein Albumin Blood Type Antibody Screen 05/20/18 05/20/18 05/20/18 04:45 06:10 08:20 WBC RBC Hgb Hct MCV MCH MCHC RDW Plt Count Seg Neutrophils % Lymphocytes % Monocytes % Eosinophils % Basophils % Absolute Neutrophils Absolute Lymphocytes Absolute Monocytes Absolute Eosinophils Absolute Basophils Carbonic Acid 0.80 L HCO3/H2CO3 Ratio 11:1 ABG pH 7.15 L* ABG pCO2 26.6 L ABG pO2 95.2 ABG HCO3 9.1 L ABG O2 Saturation 95.3 ABG Base Excess -18.2 FiO2 6L Sodium 139.2 137.8 Potassium 4.1 4.2 Chloride 114 H 112 H Carbon Dioxide 8 L* D 10 L* Anion Gap 17 16 BUN 15 15 Creatinine 2.07 H 1.99 H Est GFR ( Amer) 29 L 30 L Est GFR (Non-Af Amer) 24 L 25 L Glucose 70 L 68 L Lactic Acid Calcium 8.3 L 8.4 Magnesium 1.6 Total Bilirubin 1.3 AST 22 ALT 20 Alkaline Phosphatase 42 Total Protein 3.7 L Albumin 1.9 L Blood Type Antibody Screen 05/20/18 11:30 WBC RBC Hgb Hct MCV MCH MCHC RDW Plt Count Seg Neutrophils % Lymphocytes % Monocytes % Eosinophils % Basophils % Absolute Neutrophils Absolute Lymphocytes Absolute Monocytes Absolute Eosinophils Absolute Basophils Carbonic Acid 0.89 L HCO3/H2CO3 Ratio 10:1 ABG pH 7.10 L* ABG pCO2 29.7 L ABG pO2 169.3 H ABG HCO3 9.0 L ABG O2 Saturation 98.6 H ABG Base Excess -19.5 FiO2 100% Sodium Potassium Chloride Carbon Dioxide Anion Gap BUN Creatinine Est GFR ( Amer) Est GFR (Non-Af Amer) Glucose Lactic Acid Calcium Magnesium Total Bilirubin AST ALT Alkaline Phosphatase Total Protein Albumin Blood Type Antibody Screen 05/14/18 18:30 Blood Blood Culture - Final NO GROWTH IN 5 DAYS 05/14/18 17:15 Blood Blood Culture - Final NO GROWTH IN 5 DAYS Impressions: Abdomen/Pelvis CT 05/14/18 00:00 IMPRESSION: Malignant neoplasm involving the hepatic flexure of the colon, as described. Other findings as described. TECHNICAL DOCUMENTATION: Quality ID # [id number]: Final reports with documentation of one or more dose reduction techniques (e.g., Automated exposure control, adjustment of the mA and/or kV according to patient size, use of iterative reconstruction technique) copyright 2011 [employer]- All Rights Reserved Chest CT 05/16/18 13:25 IMPRESSION: No evidence of metastatic disease in the thorax. Chest X-Ray 05/20/18 09:20 IMPRESSION: Good position of support apparatus. No pneumothorax. Assessment & Plan - Diagnosis (1) Anemia Qualifiers: Anemia type: iron deficiency Iron deficiency anemia type: chronic blood loss Qualified Code(s): D50.0 - Iron deficiency anemia secondary to blood loss (chronic) Is this a current diagnosis for this admission?: Yes Plan: Monitoring hb closely, hold on further transfusion for now. (2) Pain, neoplasm-related Is this a current diagnosis for this admission?: Yes Plan: Holding on pain meds for now, will need once pt more alert, most likely (3) Ascending colon malignant neoplasm Is this a current diagnosis for this admission?: Yes Plan: Will follow along - Time Time Spent with patient: 35 or more minutes - Inpatient Certification Based on my medical assessment, after consideration of the patient's comorbidities, presenting symptoms, or acuity I expect that the services needed warrant INPATIENT care.: Yes I certify that my determination is in accordance with my understanding of Medicare's requirements for reasonable and necessary INPATIENT services [42 CFR 412.3e].: Yes Medical Necessity: Need For IV Fluids, Need For Continuous Telemetry Monitoring, Need for IV Antibiotics, Risk of Complication if Not Cared For in Hospital
--- NOTE | 2018-05-20 12:26 | PDOC PROGRESS REPORT ---
Subjective Progress Note for:: 05/20/18 Subjective:: Patient's yesterday the blood pressure was running very low and the patient at this point evaluated myself and surgery in order the lactic acid which came back 8.5 looks like patient is going to be sepsis transferred to the intensive care unit and increase the more fluid and also add more antibiotic patient's otherwise at that point alert awake oriented Not complaining anything Overnight in ICU patient is a bit more confused patient still not have any fever white count is still normal but patient's CO2 come back very low and patient did not make any urine output overnight much and patient's pH was 7.15 looks like patient's severe metabolic acidosis and the patient's problem a septic shock with elevated lactic acids Still alert awake but still more confused and lethargic compared to yesterday when I saw it At this point discussed with the nephrology and consider at this point putting in the dialysis because of the patient's does not making urine severe metabolic acidosis Also patient's was on already on vancomycin switch to the Primaxin and vancomycin's together and DC the Cipro Patient at this point in a septic shock with renal failure with ongoing colon cancer with the multiple other comorbidity discussed with the daughter very extensively myself in ICU with the ICU nurses and explained about the patient's current conditions Discussed with the some coordinate software consultant but extensively Patient overall prognosis is poor Order the CT scan of the abdomen and pelvis to rule out other etiology order the blood culture urine culture Reason For Visit: DIARRHEA,GI BLEED Physical Exam Vital Signs: Temp Pulse Resp BP Pulse Ox 98.2 F 121 H 24 H 107/60 100 05/20/18 08:00 05/20/18 10:00 05/20/18 10:00 05/20/18 10:00 05/20/18 10:00 Intake & Output 05/19/18 05/20/18 05/21/18 06:59 06:59 06:59 Intake Total 3650 2383 Output Total 995 500 0 Balance 2655 1883 0 Weight 76.5 kg 87.8 kg Physical Exam: Mild confuse still alert awake and answer the questions General appearance: PRESENT: no acute distress Eye exam: PRESENT: PERRLA Mouth exam: PRESENT: neck supple Respiratory exam: PRESENT: clear to auscultation omar Cardiovascular exam: PRESENT: +S1, +S2, tachycardia Additonal comments: Abdominal wound site the dressing is intact per surgery it looks all stable Neurological exam: PRESENT: alert, awake, oriented to person Skin exam: PRESENT: dry Results Laboratory Results: 05/20/18 04:45 05/20/18 08:20 05/19/18 05/19/18 05/19/18 10:19 18:05 18:05 WBC RBC Hgb Hct MCV MCH MCHC RDW Plt Count Seg Neutrophils % Lymphocytes % Monocytes % Eosinophils % Basophils % Absolute Neutrophils Absolute Lymphocytes Absolute Monocytes Absolute Eosinophils Absolute Basophils Carbonic Acid HCO3/H2CO3 Ratio ABG pH ABG pCO2 ABG pO2 ABG HCO3 ABG O2 Saturation ABG Base Excess FiO2 Sodium Potassium Chloride Carbon Dioxide Anion Gap BUN Creatinine Est GFR ( Amer) Est GFR (Non-Af Amer) Glucose Lactic Acid 8.7 H Calcium Magnesium Total Bilirubin AST ALT Alkaline Phosphatase Total Protein Albumin 1.7 L Blood Type A POSITIVE Antibody Screen NEGATIVE 05/19/18 05/20/18 05/20/18 21:30 00:46 04:45 WBC 8.3 6.1 RBC 3.69 L 4.08 Hgb 9.7 L 10.7 L Hct 30.9 L 34.0 L MCV 84 D 83 MCH 26.3 L 26.2 L MCHC 31.4 L 31.5 L RDW 18.5 H 18.6 H Plt Count 249 311 Seg Neutrophils % Not Reportable Lymphocytes % Not Reportable Monocytes % Not Reportable Eosinophils % Not Reportable Basophils % Not Reportable Absolute Neutrophils Not Reportable Absolute Lymphocytes Not Reportable Absolute Monocytes Not Reportable Absolute Eosinophils Not Reportable Absolute Basophils Not Reportable Carbonic Acid HCO3/H2CO3 Ratio ABG pH ABG pCO2 ABG pO2 ABG HCO3 ABG O2 Saturation ABG Base Excess FiO2 Sodium Potassium Chloride Carbon Dioxide Anion Gap BUN Creatinine Est GFR ( Amer) Est GFR (Non-Af Amer) Glucose Lactic Acid 8.2 H Calcium Magnesium Total Bilirubin AST ALT Alkaline Phosphatase Total Protein Albumin Blood Type Antibody Screen 05/20/18 05/20/18 05/20/18 04:45 06:10 08:20 WBC RBC Hgb Hct MCV MCH MCHC RDW Plt Count Seg Neutrophils % Lymphocytes % Monocytes % Eosinophils % Basophils % Absolute Neutrophils Absolute Lymphocytes Absolute Monocytes Absolute Eosinophils Absolute Basophils Carbonic Acid 0.80 L HCO3/H2CO3 Ratio 11:1 ABG pH 7.15 L* ABG pCO2 26.6 L ABG pO2 95.2 ABG HCO3 9.1 L ABG O2 Saturation 95.3 ABG Base Excess -18.2 FiO2 6L Sodium 139.2 137.8 Potassium 4.1 4.2 Chloride 114 H 112 H Carbon Dioxide 8 L* D 10 L* Anion Gap 17 16 BUN 15 15 Creatinine 2.07 H 1.99 H Est GFR ( Amer) 29 L 30 L Est GFR (Non-Af Amer) 24 L 25 L Glucose 70 L 68 L Lactic Acid Calcium 8.3 L 8.4 Magnesium 1.6 Total Bilirubin 1.3 AST 22 ALT 20 Alkaline Phosphatase 42 Total Protein 3.7 L Albumin 1.9 L Blood Type Antibody Screen 05/20/18 11:30 WBC RBC Hgb Hct MCV MCH MCHC RDW Plt Count Seg Neutrophils % Lymphocytes % Monocytes % Eosinophils % Basophils % Absolute Neutrophils Absolute Lymphocytes Absolute Monocytes Absolute Eosinophils Absolute Basophils Carbonic Acid 0.89 L HCO3/H2CO3 Ratio 10:1 ABG pH 7.10 L* ABG pCO2 29.7 L ABG pO2 169.3 H ABG HCO3 9.0 L ABG O2 Saturation 98.6 H ABG Base Excess -19.5 FiO2 100% Sodium Potassium Chloride Carbon Dioxide Anion Gap BUN Creatinine Est GFR ( Amer) Est GFR (Non-Af Amer) Glucose Lactic Acid Calcium Magnesium Total Bilirubin AST ALT Alkaline Phosphatase Total Protein Albumin Blood Type Antibody Screen 05/14/18 18:30 Blood Blood Culture - Final NO GROWTH IN 5 DAYS 05/14/18 17:15 Blood Blood Culture - Final NO GROWTH IN 5 DAYS Impressions: Abdomen/Pelvis CT 05/14/18 00:00 IMPRESSION: Malignant neoplasm involving the hepatic flexure of the colon, as described. Other findings as described. TECHNICAL DOCUMENTATION: Quality ID # 436: Final reports with documentation of one or more dose reduction techniques (e.g., Automated exposure control, adjustment of the mA and/or kV according to patient size, use of iterative reconstruction technique) copyright 2011 [email or web address]- All Rights Reserved Chest CT 05/16/18 13:25 IMPRESSION: No evidence of metastatic disease in the thorax. Chest X-Ray 05/20/18 09:20 IMPRESSION: Good position of support apparatus. No pneumothorax. Assessment & Plan - Diagnosis (1) Septic shock Is this a current diagnosis for this admission?: Yes Plan: Put the patient on the broad-spectrum antibiotic IV fluid\Presser Order blood culture urine culture (2) Acute kidney injury Is this a current diagnosis for this admission?: Yes Plan: As per discussed with the nephrology patient scheduled for the dialysis today most likely due to the septic shock (3) Metabolic acidosis Is this a current diagnosis for this admission?: Yes Plan: Sodium bicarb drip (4) Stool guaiac positive Is this a current diagnosis for this admission?: Yes (5) Abdominal pain Qualifiers: Abdominal location: right upper quadrant Qualified Code(s): R10.11 - Right upper quadrant pain Is this a current diagnosis for this admission?: Yes (6) Diarrhea Qualifiers: Diarrhea type: unspecified type Qualified Code(s): R19.7 - Diarrhea, unspecified Is this a current diagnosis for this admission?: Yes (7) Arthritis Is this a current diagnosis for this admission?: Yes (8) Duodenal mass Is this a current diagnosis for this admission?: Yes (9) Abdominal mass, RUQ (right upper quadrant) Is this a current diagnosis for this admission?: Yes Plan: Status post surgery post surgery (10) Acute tubular necrosis Is this a current diagnosis for this admission?: Yes - Time Time Spent with patient: 35 or more minutes Total Critical Time (Minutes): 60 Medications reviewed and adjusted accordingly: Yes Anticipated discharge: Other Within: Other - Plan Summary Plan Summary: Start the patient already on IV broad-spectrum antibiotic Discussed with the surgery Order the CT scan of the abdomen and pelvis Discussed with the nephrology scheduled for dialysis Consult the pulmonary Repeat the ABG and a blood work Very extensive discussed with the daughter regarding the patient's current conditions with the poor prognosis
[2018-05-20] MEDS: ALBUMIN HUMAN 12.5 GM/50 ML RTUINJ IV SCH ×2 (12:30→13:17)
[2018-05-20] MEDS: LORATADINE 10 MG TABLET PO SCH (13:11)
--- NOTE | 2018-05-20 14:24 | PDOC CONSULTATION ---
Consultation Consult Date: 05/20/18 Attending physician:: CHRISTINE COCHRAN Consult reason:: septic shock History of Present Illness Admission Date/PCP: 05/14/18 16:40 MAGGI MENENDEZ History of Present Illness: EDIL BENNETT is a 67 year old female, historically she moved here recently from [place] currently presented approximately a week ago with abdominal pain and diarrhea as he subsequently underwent an upper GI and then surgery and adhesions adhesions were lysed since some mass was resected which was consistent with adenocarcinoma of the colon returns today confused short of breath tachypneic and hypertensive she is extremely lethargic and unable to answer questions eyes subsequently conferred with medical staff as well as the family and we proceeded with intubation in the face of profound metabolic acidosis or respiratory rate in the mid 30s which the patient felt could not sustain. Past Medical History Pulmonary Medical History: Reports: Chronic Obstructive Pulmonary Disease (COPD) Neurological Medical History: Denies: Seizures Endocrine Medical History: Reports: Diabetes Mellitus Type 2 Renal/ Medical History: Reports: Other - Overactive bladder Malignancy Medical History: Reports: Colorectal Cancer Musculoskeltal Medical History: Reports: Arthritis Hematology: Denies: Sickle Cell Disease Past Surgical History Past Surgical History: Reports: Appendectomy, Tonsillectomy, Tubal Ligation, Other - Colonoscopy 1-2 years ago that was reportedly normal. Social History Information Source: [facility] Records Lives with: Family Smoking Status: Current Every Day Smoker Cigarettes Packs Per Day: 0.5 Number of Years Smokin Frequency of Alcohol Use: None Hx Recreational Drug Use: No Drugs: None Hx Prescription Drug Abuse: No - Advance Directive Resuscitation Status: Full Code Family History Family History: Malignancy - sister colon 55, sister breast 59, sister lymphoma, 1/2 brother lymphoma Parental Family History Reviewed: No Children Family History Reviewed: No Sibling(s) Family History Reviewed.: No Medication/Allergy Home Medications: Fexofenadine HCl [Aleshia] 180 mg PO DAILY 05/14/18 Mirabegron [Myrbetriq] 50 mg PO DAILY 05/14/18 Allergies/Adverse Reactions: Penicillins Allergy (Verified 05/14/18 14:46) metronidazole [From Flagyl] Adverse Reaction (Verified 05/17/18 21:43) Review of Systems ROS unobtainable: Due to endotracheal tube, Due to mental status Physical Exam Vital Signs: Temp Pulse Resp BP Pulse Ox 98.2 F 112 H 23 H 100/48 L 94 05/20/18 08:00 05/20/18 08:00 05/20/18 08:00 05/20/18 08:00 05/20/18 08:00 Intake & Output 05/19/18 05/20/18 05/21/18 06:59 06:59 06:59 Intake Total 3650 2383 Output Total 995 500 0 Balance 2655 1883 0 Weight 76.5 kg 87.8 kg General appearance: PRESENT: no acute distress, disheveled. ABSENT: cooperative Head exam: PRESENT: atraumatic, normocephalic Eye exam: PRESENT: conjunctiva pale. ABSENT: EOMI, nystagmus, periorbital swelling, scleral icterus Mouth exam: PRESENT: dry mucosa, neck supple, tongue midline, other - ET tube Neck exam: ABSENT: carotid bruit, full ROM, JVD, lymphadenopathy, meningismus, tenderness, thyromegaly, tracheal deviation, tracheostomy, other Respiratory exam: PRESENT: decreased breath sounds, prolonged expiratory phas, rhonchi, tachypnea, unlabored. ABSENT: retraction Cardiovascular exam: PRESENT: RRR, +S1, +S2, tachycardia Pulses: PRESENT: normal radial pulses GI/Abdominal exam: PRESENT: other - Status post surgery Gentrourinary exam: PRESENT: indwelling catheter Extremities exam: ABSENT: calf tenderness, clubbing, joint swelling Musculoskeletal exam: ABSENT: ambulatory, deformity, dislocation Neurological exam: ABSENT: awake Skin exam: PRESENT: dry, warm Results Laboratory Results: 05/20/18 04:45 05/20/18 08:20 05/19/18 05/19/18 05/19/18 10:19 18:05 18:05 WBC RBC Hgb Hct MCV MCH MCHC RDW Plt Count Seg Neutrophils % Lymphocytes % Monocytes % Eosinophils % Basophils % Absolute Neutrophils Absolute Lymphocytes Absolute Monocytes Absolute Eosinophils Absolute Basophils Carbonic Acid HCO3/H2CO3 Ratio ABG pH ABG pCO2 ABG pO2 ABG HCO3 ABG O2 Saturation ABG Base Excess FiO2 Sodium Potassium Chloride Carbon Dioxide Anion Gap BUN Creatinine Est GFR ( Amer) Est GFR (Non-Af Amer) Glucose Lactic Acid 8.7 H Calcium Magnesium Total Bilirubin AST ALT Alkaline Phosphatase Total Protein Albumin 1.7 L Blood Type A POSITIVE Antibody Screen NEGATIVE 05/19/18 05/20/18 05/20/18 21:30 00:46 04:45 WBC 8.3 6.1 RBC 3.69 L 4.08 Hgb 9.7 L 10.7 L Hct 30.9 L 34.0 L MCV 84 D 83 MCH 26.3 L 26.2 L MCHC 31.4 L 31.5 L RDW 18.5 H 18.6 H Plt Count 249 311 Seg Neutrophils % Not Reportable Lymphocytes % Not Reportable Monocytes % Not Reportable Eosinophils % Not Reportable Basophils % Not Reportable Absolute Neutrophils Not Reportable Absolute Lymphocytes Not Reportable Absolute Monocytes Not Reportable Absolute Eosinophils Not Reportable Absolute Basophils Not Reportable Carbonic Acid HCO3/H2CO3 Ratio ABG pH ABG pCO2 ABG pO2 ABG HCO3 ABG O2 Saturation ABG Base Excess FiO2 Sodium Potassium Chloride Carbon Dioxide Anion Gap BUN Creatinine Est GFR ( Amer) Est GFR (Non-Af Amer) Glucose Lactic Acid 8.2 H Calcium Magnesium Total Bilirubin AST ALT Alkaline Phosphatase Total Protein Albumin Blood Type Antibody Screen 05/20/18 05/20/18 05/20/18 04:45 06:10 08:20 WBC RBC Hgb Hct MCV MCH MCHC RDW Plt Count Seg Neutrophils % Lymphocytes % Monocytes % Eosinophils % Basophils % Absolute Neutrophils Absolute Lymphocytes Absolute Monocytes Absolute Eosinophils Absolute Basophils Carbonic Acid 0.80 L HCO3/H2CO3 Ratio 11:1 ABG pH 7.15 L* ABG pCO2 26.6 L ABG pO2 95.2 ABG HCO3 9.1 L ABG O2 Saturation 95.3 ABG Base Excess -18.2 FiO2 6L Sodium 139.2 137.8 Potassium 4.1 4.2 Chloride 114 H 112 H Carbon Dioxide 8 L* D 10 L* Anion Gap 17 16 BUN 15 15 Creatinine 2.07 H 1.99 H Est GFR ( Amer) 29 L 30 L Est GFR (Non-Af Amer) 24 L 25 L Glucose 70 L 68 L Lactic Acid Calcium 8.3 L 8.4 Magnesium 1.6 Total Bilirubin 1.3 AST 22 ALT 20 Alkaline Phosphatase 42 Total Protein 3.7 L Albumin 1.9 L Blood Type Antibody Screen 05/14/18 18:30 Blood Blood Culture - Final NO GROWTH IN 5 DAYS 05/14/18 17:15 Blood Blood Culture - Final NO GROWTH IN 5 DAYS Impressions: Abdomen/Pelvis CT 05/14/18 00:00 IMPRESSION: Malignant neoplasm involving the hepatic flexure of the colon, as described. Other findings as described. TECHNICAL DOCUMENTATION: Quality ID # [id number]: Final reports with documentation of one or more dose reduction techniques (e.g., Automated exposure control, adjustment of the mA and/or kV according to patient size, use of iterative reconstruction technique) copyright 2010 [employer]- All Rights Reserved Chest CT 05/16/18 13:25 IMPRESSION: No evidence of metastatic disease in the thorax. Chest X-Ray 05/20/18 00:00 IMPRESSION: Central venous catheter with the tip likely in the cavoatrial junction. Tip of the enteric tube likely in the stomach. copyright 2010 [employer]- All Rights Reserved Assessment & Plan - Diagnosis (1) Acute kidney injury Is this a current diagnosis for this admission?: Yes Plan: Dialysis being initiated per nephrology at this time (2) Acute respiratory failure Is this a current diagnosis for this admission?: Yes Plan: 60-year history of smoking advanced elevated elevation of respiratory rate in an attempt to compensate for metabolic acidosis will intubate controlled work of breathing hopefully successfully blowing of more carbon dioxide the patient is able to (3) Metabolic acidosis Is this a current diagnosis for this admission?: Yes Plan: Lactic acid and ketoacidosis elevated anion gap 16 (4) Septic shock Is this a current diagnosis for this admission?: Yes Plan: Currently on levophed lactic acid 8.5 - Time Total Critical Time (Minutes): 60
[2018-05-20] MEDS: FAMOTIDINE INJ/PF 20 MG/2 ML SDV IV SCH ×2 (14:26→22:04)
[2018-05-20] MEDS: IMIPENEM/CILASTATIN SODIUM 500 MG in NORMAL SALINE 100 ML IV SCH ×2 (14:26→18:03)
[2018-05-20] MEDS: ENOXAPARIN SODIUM INJ 40 MG/0.4 ML DISP.SYRIN SUBCUT SCH (14:27)
[2018-05-20 18:29] LABS: ARTERIAL BLOOD BASE EXCESS -13.6 mmol/L; ARTERIAL BLOOD FIO2 80%; ARTERIAL BLOOD H2CO3 0.86 mmol/L (1.05-1.35); ARTERIAL BLOOD HCO3 12.2 mmol/L (20-24); ARTERIAL BLOOD O2 SATURATION 98.8 % (94-98); ARTERIAL BLOOD PCO2 28.7 mmHg (35-45); ARTERIAL BLOOD PH 7.25 (7.35-7.45); ARTERIAL BLOOD TOTAL CO2 13.1 mmol/L (21-25)
[2018-05-20] MEDS ORDERED: PHENYLEPHRINE HCL INJ/PF 10 MG/1 ML SDV ONE (19:08)
[2018-05-20] MEDS ORDERED: VASOPRESSIN INJ 20 UNIT/1 ML VIAL ONE ×2 (19:13→22:34)
[2018-05-20] MEDS ORDERED: DEXTROSE 5%-WATER 250 ML with VASOPRESSIN 100 UNIT IV PRN ×4 (19:14→22:48)
--- NOTE | 2018-05-20 21:06 | RADIOLOGY REPORT (SQ) ---
EXAM DESCRIPTION: CT abdomen pelvis without contrast CLINICAL HISTORY: 67 years Female; ABD MASS TECHNIQUE: CT of the abdomen and pelvis without contrast. All CT scans at this facility use dose modulation, iterative reconstruction, and/or weight based dosing when appropriate to reduce radiation dose to as low as reasonably achievable. COMPARISON: None. FINDINGS: Small bilateral pleural effusions are partially visualized, 1.5-2 cm in thickness. There is associated partial atelectasis of both lower lobes. Abdomen: Nasogastric tube tip is in the stomach. Midline surgical wound is noted, with skin ivette in place. There are 2 upper abdominal peritoneal drains. Liver:No focal lesions. No intrahepatic ductal distention. Gallbladder: Surgically absent Pancreas:Within normal limits Spleen:Within normal limits Right kidney:No hydronephrosis. No renal or ureteral calculi. Left kidney:No hydronephrosis. No renal or ureteral calculi. Adrenal glands:Within normal limits Vascular structures: Left femoral vein catheter is noted, tip in the IVC There is scattered retroperitoneal edema, mostly along the anterior margin of the right psoas muscle. No enlarged retroperitoneal lymph nodes.. There are scattered aortic calcifications, without aneurysm. Pelvis: Small bowel:Left lower percutaneous jejunostomy catheter is noted. No small bowel distention. Bowel staple lines are noted in the anterior central abdomen. Evaluation of the small bowel is suboptimal due to lack of oral contrast. Appendix: Not reliably identified. Colon: Nondistended There is mild diffuse intraperitoneal edema Fluid along the left lateral peritoneal cavity measures up to 2.3 cm thick, low density. There is minimal fluid in the dependent portion of the pelvis. No free air. Ochoa catheter decompresses the bladder. Uterus: Coarse calcifications 2.4 cm in diameter, typical for calcified uterine fibroid. No pelvic adenopathy. There is diffuse bilateral subcutaneous flank edema, without a discrete focal fluid collection. Note that evaluation of the bowel and solid organs is somewhat limited due to lack of intravenous and oral contrast. IMPRESSION: 1. Small bilateral pleural effusions with partial atelectasis of both lower lobes 2. Recent surgical changes, with fluid along the left paracolic gutter and in the pelvis. 3. No bowel distention or free air. 4. Nonspecific diffuse soft tissue edema typical for anasarca. 5. Lines and drains as described. 6. Note that evaluation of the abdominal organs for metastatic disease is limited due to lack of intravenous contrast. 7. No adenopathy.
[2018-05-20] MEDS ORDERED: SUCCINYLCHOLINE CHLORIDE INJ 200 MG/10 ML VIAL ONE (21:19)
[2018-05-20] MEDS ORDERED: DEXTROSE 5%-WATER 250 ML with PHENYLEPHRINE HCL 40 MG IV PRN ×2 (21:56)
[2018-05-20] MEDS ORDERED: VANCOMYCIN HCL 1,000 MG in DEXTROSE 5%-WATER 250 ML IV SCH (22:00)
[2018-05-20] MEDS ORDERED: DIGOXIN INJ 0.5 MG/2 ML AMPULE ONE (22:33)
[2018-05-20] MEDS ORDERED: DIGOXIN INJ 0.5 MG/2 ML AMPULE IV ONE (23:00)
[2018-05-20] MEDS ORDERED: ADENOSINE INJ/PF 6 MG/2 ML SDV IV ONE (23:24)
[2018-05-20] MEDS ORDERED: AMIODARONE HCL INJ 150 MG/3 ML VIAL IV ONE (23:35)
--- NOTE | 2018-05-21 00:17 | RADIOLOGY REPORT (SQ) ---
EXAM DESCRIPTION: XR CHEST 1 VIEW COMPLETED DATE/TME: 05/20/2018 23:21 CLINICAL HISTORY: 67 years, Female, resp failure COMPARISON: 05/19/2018 chest NUMBER OF VIEWS: 1 TECHNIQUE: Portable chest LIMITATIONS: None. FINDINGS: The heart size is normal. Enteric tube and central venous catheter in place. Interval intubation. Tip of endotracheal tube approximately 3.7 cm above the ross. No pneumothorax. Small left effusion with mild interstitial edema. IMPRESSION: Interval intubation. Mild interstitial edema with a small left effusion. copyright 2010 [employer]- All Rights Reserved
[2018-05-21] MEDS ORDERED: DEXTROSE 5%-WATER 500 ML with AMIODARONE HCL 900 MG IV PRN ×2 (00:26)
[2018-05-21] MEDS: MORPHINE SULFATE 10 MG/ML INJ IV PRN (00:29)
[2018-05-21] MEDS ORDERED: AMIODARONE HCL 150 MG in DEXTROSE 5%-WATER 100 ML IV ONE (00:30)
[2018-05-21 00:31] LABS: BLOOD UREA NITROGEN 12 mg/dL (7-20); CALCIUM 7.7 mg/dL (8.4-10.2); GLUCOSE 97 mg/dL (75-110); POTASSIUM 4.1 mmol/L (3.6-5.0)
[2018-05-21 00:37] LABS: CHLORIDE 104 mmol/L (98-107); SODIUM 136.3 mmol/L (137-145)
[2018-05-21 00:40] LABS: ANION GAP 22 (5-19)
[2018-05-21] MEDS ORDERED: ADENOSINE INJ/PF 6 MG/2 ML SDV IV ONE (00:40)
[2018-05-21 00:43] LABS: CARBON DIOXIDE 10 mmol/L (22-30)
[2018-05-21] MEDS: MIDAZOLAM HCL 50 MG/100 ML RTUINJ IV PRN (01:17)
[2018-05-21] MEDS: ACETAMINOPHEN 325 MG TABLET PO PRN (01:24)
[2018-05-21] MEDS: NORMAL SALINE 1000 ML 1,000 ML IV PRN (03:00)
[2018-05-21 03:40] LABS: ARTERIAL BLOOD BASE EXCESS -18.8 mmol/L; ARTERIAL BLOOD FIO2 60%; ARTERIAL BLOOD H2CO3 0.71 mmol/L (1.05-1.35); ARTERIAL BLOOD HCO3 8.3 mmol/L (20-24); ARTERIAL BLOOD O2 SATURATION 93.7 % (94-98); ARTERIAL BLOOD PCO2 23.7 mmHg (35-45); ARTERIAL BLOOD PO2 84.2 mmHg (80-100)
[2018-05-21 03:41] LABS: ARTERIAL BLOOD PH 7.16 (7.35-7.45)
[2018-05-21] MEDS: IMIPENEM/CILASTATIN SODIUM 500 MG in NORMAL SALINE 100 ML IV SCH (04:09)
[2018-05-21] MEDS ORDERED: NORMAL SALINE 1000 ML 1,000 ML IV PRN (05:00)
[2018-05-21 06:23] VITALS: BP 87/76
--- NOTE | 2018-05-21 06:24 | PROGRESS NOTE E ---
Progress Note NAME: EDIL BENNETT : 1950 AGE: 67Y DATE: 05/20/2018 ROOM: 606 SUBJECTIVE: The ICU nurse called regarding the patient's heart rate goes up to 150-170 range, and at this point, came to the ICU to see the patient. Discussed with Cardiology, Dr. Garg, who suggested to give her digoxin, stop the Levophed drip, and continue the vasopressin to maintain the blood pressures. Discussed with Surgery. Reviewed the CT scan. It does not look like any acute pathology at this point. The patient is seen, examined in the ICU and spent more than 1 hour in the ICU. Tried to make phone calls to the daughter regarding the patient's poor condition, which I already discussed in the morning. Again, tried to call tonight, unable to answer. The patient currently has a poor prognosis. Myself and Surgery, Dr. Robison, is in the ICU. Discussed with the ICU nurses order the chem-7, order the chest x-ray, ABG The patient is dialyzed this morning. Still again, the overall patient's prognosis is very poor. Will still try to contact the family member and alos dr wilhelm cardilogcayetano is in icu and see and examine pt and adjust medication DICTATING PHYSICIAN: CHRISTINE COCHRAN M.D. [id number] JOAQUINY#: [id number] [id number] JOB#: [id number] ACCT: [id number] cc: > MTDD
--- NOTE | 2018-05-21 07:43 | EKG REPORT ---
SEVERITY:- ABNORMAL ECG - SINUS RHYTHM NONSPECIFIC INTRAVENTRICULAR CONDUCTION DELAY- IRBBB LOW VOLTAGE EKG NONSPECIFIC ST-T CHANGES- INFERIOR LEADS : Confirmed by: Erick Banda MD 21-May-2018 07:43:16
--- NOTE | 2018-05-21 07:45 | EKG REPORT ---
SEVERITY:- ABNORMAL ECG - ATRIAL FIBRILLATION NONSPECIFIC INTRAVENTRICULAR CONDUCTION DELAY : Confirmed by: Erick Banda MD 21-May-2018 07:45:10
--- NOTE | 2018-05-21 12:43 | Death Summary ---
Summary Date : 05/21/18 Autopsy: No Resuscitation Status: Do Not Resuscitate - Final Diagnosis (1) Septic shock Is this a current diagnosis for this admission?: Yes (2) Acute kidney injury Is this a current diagnosis for this admission?: Yes (3) Metabolic acidosis Is this a current diagnosis for this admission?: Yes (4) Stool guaiac positive Is this a current diagnosis for this admission?: Yes (5) Abdominal pain Is this a current diagnosis for this admission?: Yes (6) Diarrhea Is this a current diagnosis for this admission?: Yes (7) Arthritis Is this a current diagnosis for this admission?: Yes (8) Duodenal mass Is this a current diagnosis for this admission?: Yes (9) Abdominal mass, RUQ (right upper quadrant) Is this a current diagnosis for this admission?: Yes (10) Acute tubular necrosis Is this a current diagnosis for this admission?: Yes Hospital Course:: This is a 67-year-old female was admitting in the hospital for the ongoing diarrhea abdominal pain patient CT scan of the abdomen and pelvis shows a col onic mass and underwent for the endoscopy and colonoscopy which revealed a large mass in the right colon and duodenal mass Patient also have a GI bleed received a blood Patient seen by the surgery and oncology At this point's with a significant mass patient underwent for the surgery for the possible right hemicolectomy initially and found it patient had a very extensive invasion of the tumor to the gallbladder and surrounding tissues and all the way to the duodenum and patient underwent for with extensive surgery After the surgery patient was put in a telemetry bed and the patient apparently doing fair and then patient started running low blood pressure and patient at this point lactic acid was order was 8.5 and patient was transferred to the ICU and start the patient on the pressure and start the patient's initially was clindamycin at the Cipro and vancomycin Again patients overnight getting more worse patient severe metabolic acidotic and the patient at this point consulted the nephrology and pulmonary Underwent further hemodialysis because of the severe metabolic acidosis Patient also intubated Very extensive discussions myself with the daughter and the surgery and other consulting physician about the poor prognosis because of the patient's however that poorly differential colon cancer which invade to the surrounding tissues and a positive lymph node Patient is underwent for the septic shock and cardiology was consulted and do the maximum effort and discussed with the daughter with the poor prognosis and daughter expressed the patient should be DNR while patient express herself do not want to be intubated before this happened and daughter wants to follow with with her patients
[2018-05-22 11:37] LABS: HEPATITS B SURFACE ANTIGEN Negative (Negative)
[2018-05-23 07:45] LABS: HEPATITIS B CORE AB TOT Negative (Negative); HEPATITIS B SURFACE AB QUANT <3.1 mIU/mL (Immunity>9)
[2018-05-23 09:37] LABS: HEPATITIS C QUANTITATION HCV Not Detected IU/mL (.)
== END 2018-05-21 06:23 | disposition expired | DRG 326 ==
LOC: ER 12:31 → EH 16:40 → 2S 20:20 → 4S 05-17 16:30 → ICU 05-19 20:34
PROVIDERS: ADMIT Family Medicine; ATTEND Family Medicine
PROC: 3E0F3GC Introduction of Other Therapeutic Substance into Respiratory Tract, Percutaneous Approach (ICD-10-PCS; 2018-05-14)
PROC: 30233N1 Transfusion of Nonautologous Red Blood Cells into Peripheral Vein, Percutaneous Approach (ICD-10-PCS; 2018-05-15)
PROC: 0DB68ZX Excision of Stomach, Via Natural or Artificial Opening Endoscopic, Diagnostic (ICD-10-PCS; 2018-05-16)
PROC: 0DTF0ZZ Resection of Right Large Intestine, Open Approach (ICD-10-PCS; 2018-05-17)
PROC: 0D160ZA Bypass Stomach to Jejunum, Open Approach (ICD-10-PCS; 2018-05-17)
PROC: 0DB60ZZ Excision of Stomach, Open Approach (ICD-10-PCS; 2018-05-17)
PROC: 0FT40ZZ Resection of Gallbladder, Open Approach (ICD-10-PCS; 2018-05-17)
PROC: 0DNU0ZZ Release Omentum, Open Approach (ICD-10-PCS; 2018-05-17)
PROC: 0DB90ZZ Excision of Duodenum, Open Approach (ICD-10-PCS; principal; 2018-05-17 09:15)
PROC: 02HV33Z Insertion of Infusion Device into Superior Vena Cava, Percutaneous Approach (ICD-10-PCS; 2018-05-19)
PROC: 30233N1 Transfusion of Nonautologous Red Blood Cells into Peripheral Vein, Percutaneous Approach (ICD-10-PCS; 2018-05-19)
PROC: 5A1D70Z Performance of Urinary Filtration, Intermittent, Less than 6 Hours Per Day (ICD-10-PCS; 2018-05-20)
PROC: 5A1945Z Respiratory Ventilation, 24-96 Consecutive Hours (ICD-10-PCS; 2018-05-20)
PROC: 06H033Z Insertion of Infusion Device into Inferior Vena Cava, Percutaneous Approach (ICD-10-PCS; 2018-05-20)
PROC: 0BH17EZ Insertion of Endotracheal Airway into Trachea, Via Natural or Artificial Opening (ICD-10-PCS; 2018-05-20)
PROC: 5A1D70Z Performance of Urinary Filtration, Intermittent, Less than 6 Hours Per Day (ICD-10-PCS; 2018-05-21)
DX: C18.4 Malignant neoplasm of transverse colon (principal); K26.4 Chronic or unspecified duodenal ulcer with hemorrhage; R65.21 Severe sepsis with septic shock; N17.0 Acute kidney failure with tubular necrosis; J96.00 Acute respiratory failure, unspecified whether with hypoxia or hypercapnia; D62 Acute posthemorrhagic anemia; E87.2 Acidosis; C77.9 Secondary and unspecified malignant neoplasm of lymph node, unspecified; C78.89 Secondary malignant neoplasm of other digestive organs; J44.9 Chronic obstructive pulmonary disease, unspecified; E88.09 Other disorders of plasma-protein metabolism, not elsewhere classified; E11.9 Type 2 diabetes mellitus without complications; N32.81 Overactive bladder; M19.90 Unspecified osteoarthritis, unspecified site; D63.8 Anemia in other chronic diseases classified elsewhere; E78.5 Hyperlipidemia, unspecified; N39.41 Urge incontinence; K64.8 Other hemorrhoids; J30.2 Other seasonal allergic rhinitis; D50.9 Iron deficiency anemia, unspecified; Z66 Do not resuscitate; G89.3 Neoplasm related pain (acute) (chronic); E86.0 Dehydration; F17.210 Nicotine dependence, cigarettes, uncomplicated; Z80.7 Family history of other malignant neoplasms of lymphoid, hematopoietic and related tissues; Z80.0 Family history of malignant neoplasm of digestive organs; Z88.0 Allergy status to penicillin; Z90.3 Acquired absence of stomach [part of]; Z90.49 Acquired absence of other specified parts of digestive tract; Z80.3 Family history of malignant neoplasm of breast; Z88.8 Allergy status to other drugs, medicaments and biological substances
CPT/HCPCS: 31500; 36415; 36430; 43239; 45380; 71045; 71260; 74176; 74177; 790; 80048; 80053; 80076; 81001; 82040; 82272; 82378; 82607; 82728; 82746; 82803; 82962; 83540; 83550; 83605; 83735; 84132; 85025; 85027; 85045; 86317; 86704; 86850; 86900; 86901; 86920; 87040; 87045; 87077; 87086; 87186; 87205; 87340; 87493; 87522; 88305; 88309; 88342; 89055; 93005; 93010; 94002; 94003; 94640; 96360; 96361; 99285; C1751; C9290; J0131; J0153; J0171; J0282; J0330; J0743; J0744; J1100; J1160; J1170; J1200; J1610; J1650; J1885; J2250; J2270; J2310; J2370; J2405; J2550; J2704; J3010; J3370; J3490; J7030; J7050; J7060; J7620; P9016; P9041; P9047; Q0138; S0028; S0164